=== PATIENT | female | born 1940 | race Caucasian/White ===

== ENCOUNTER → 2024-10-24 | Outpatient (CLI) | payer MEDICARE, SELFPAY ==
[2024-10-24 13:05] LABS: Collection Type, Urine Clean Catch
[2024-10-24 13:30] LABS: Albumin, Serum 4.4 gm/dL (3.4-4.8); Anion Gap 7 (7-16); BUN/Creatinine Ratio 17 Ratio (12-20); Blood Urea Nitrogen 15 mg/dL (9-23); Calcium 9.5 mg/dL (8.3-10.6); Calcium (Corrected) 9.5 mg/dL (8.5-10.1); Carbon Dioxide 28.5 mMol/L (20.0-31.0); Chloride 94 mMol/L (98-107); Creatinine (Component) 0.9 mg/dL (0.6-1.3); Glucose 109 mg/dL (74-106); Osmolality,Calculated 260 (275-295); Potassium 4.5 mMol/L (3.4-5.1); Sodium 129 mMol/L (136-145); eGFR > 60 See Note
[2024-10-24 14:13] LABS: Bacteria,Urine 3+; Bilirubin,Urine Negative (Negative); Blood,Urine Negative (Negative); Clarity,Urine Turbid (Clear/Hazy); Color,Urine Lt-Yellow (Lt Yel-Yel); Glucose, Urine Negative (Negative); Ketones,Urine Negative (Negative); Leukocyte Esterase,Urine Positive (Negative); Nitrite,Urine Positive (Negative); PH,Urine 5.5 (5.0-7.0); Protein,Urine Negative (Neg - Trace); RBC,Urine 1 /hpf (0-3); Specific Gravity,Urine 1.009 (1.001-1.035); Squamous Epithelial Cell,Urine 15 /hpf (0-5); Transitional Epi Cells,Urine < 1 /hpf (0-5); Urobilinogen,Urine Negative mg/dL (0.0-1.0); WBC,Urine 26 /hpf (0-5)
== END | disposition home or self-care (01) ==
LOC: COPL 12:00
PROVIDERS: PCP Internal Medicine; Referring Provider Internal Medicine; Visit Provider Internal Medicine
DX: I10 Essential (primary) hypertension (principal)
CPT/HCPCS: 36415; 80069; 81001

== ENCOUNTER → 2024-11-07 | Outpatient (CLI) | payer MEDICARE, SELFPAY ==
--- NOTE | 2024-11-07 10:56 | XR_ITS ---
Examination: Shoulder,right, 3 views Technique: Shoulder AP internal rotation, AP external rotation, Y view shoulder, 3 views Exam date and time :November 07, 2024 1242 hours INDICATIONS: Right shoulder pain beginning several years ago. FINDINGS: Moderate osteoarthritis glenohumeral joint and acromioclavicular joint No fracture No shoulder dislocation IMPRESSION: Moderate osteoarthritis
== END | disposition home or self-care (01) ==
LOC: CDIM 10:48
PROVIDERS: PCP Internal Medicine; Referring Provider Internal Medicine; Visit Provider Internal Medicine
DX: M19.011 Primary osteoarthritis, right shoulder (principal)
CPT/HCPCS: 73030

== ENCOUNTER → 2025-01-27 | Outpatient (CLI) | payer MEDICARE, SELFPAY ==
[2025-01-27 10:32] LABS: Basophils % (Auto) 0 % (0-2.5); Eosinophils # (Auto) 0.1 Thou/mm3 (0.0-0.5); Eosinophils % (Auto) 2 % (0-10); Hematocrit 37.1 % (36.0-46.0); Hemoglobin 12.8 g/dL (12.0-16.0); Immature Granulocytes % (Auto) 0 % (0-0); Immature Granulocytes Auto 0.02 Thou/mm3 (0.00-0.00); Lymphocytes # (Auto) 1.3 Thou/mm3 (1.0-4.8); Lymphocytes % (Auto) 23 % (10-50); Mean Corpuscular HGB Conc 34.5 g/dl (31.0-37.0); Mean Corpuscular Hemoglobin 32.7 pg (25.0-35.0); Mean Corpuscular Volume 95 fL (80-100); Monocytes # (Auto) 0.6 Thou/mm3 (0.0-0.8); Monocytes % (Auto) 10 % (0-12); Neutrophils # (Auto) 3.6 Thou/mm3 (1.8-7.7); Neutrophils % (Auto) 64 % (37-80); Nucleated Red Blood Cell % 0 /100 WBC (0); Platelet Count 190 Thou/mm3 (140-440); RDW Standard Deviation 44.9 fL (36.4-46.3); Red Blood Count 3.91 Miln/mm3 (4.00-5.20); White Blood Count 5.6 Thou/mm3 (3.6-11.0)
[2025-01-27 11:05] LABS: Albumin, Serum 4.1 gm/dL (3.4-4.8); Anion Gap 5 (7-16); BUN/Creatinine Ratio 18 Ratio (12-20); Blood Urea Nitrogen 14 mg/dL (9-23); Calcium 9.3 mg/dL (8.3-10.6); Calcium (Corrected) 9.3 mg/dL (8.5-10.1); Carbon Dioxide 30.3 mMol/L (20.0-31.0); Chloride 96 mMol/L (98-107); Creatinine (Component) 0.8 mg/dL (0.6-1.3); Glucose 104 mg/dL (74-106); Osmolality,Calculated 263 (275-295); Phosphorous 3.6 mg/dL (2.4-5.1); Potassium 4.7 mMol/L (3.4-5.1); Sodium 131 mMol/L (136-145); eGFR > 60 See Note
== END | disposition home or self-care (01) ==
LOC: COPL 09:47
PROVIDERS: PCP Internal Medicine; Referring Provider Internal Medicine; Visit Provider Internal Medicine
DX: I10 Essential (primary) hypertension (principal)
CPT/HCPCS: 36415; 80069; 85025

== ENCOUNTER 2025-02-10 03:59 | Inpatient (IN) | payer MEDICARE, SELFPAY ==
[2025-02-10] VITALS (11 sets, daily range): BP systolic 98–139; BP diastolic 60–85; PULSE 73–100; RESP 17–20; TEMP 36.1–36.8; O2SAT 95–98; BMI 28.0
--- NOTE | 2025-02-10 04:07 | EDNOTE_ITS ---
ED Syncope RME/HPI General Chief Complaint: Syncope / Near Syncope Stated Complaint: SYNCOPAL EPISODE Time Seen by Provider: 02/10/25 04:07 Arrival date/time: 02/10/25 03:59 RME / HPI RME / HPI narrative: This section includes all my notes and documentations, including HPI, PE, and ED course. Oscar Gibson MD HPI: 85yo female with a history of HTN BIBA from home presents to the ED for a chief complaint of syncope just prior to arrival. Stroke alert initiated at 0408. Patient states she was walking from the restroom to her bedroom when she started feeling generally weak and passed out. She woke up on the floor on her back, with obvious injury to the back of her head. She had passed out only briefly, probably less than a minute. She managed to crawl and get help using [employer]. Son who is the redness to the senior medical transcriptionist is here. They helped her up in sitting position. there was a 5-10 minute period when the patient became altered and was not responding appropriately. So he called 911 to bring the patient in for evaluation. Patient endorses having right ankle pain. She denies dizziness, chest pain, abdominal pain, shortness of breath, cough, fever, chills, neck pain. Patient is not on oxygen at home. She does not use a walker or cane. PCP is Dr. Rayo. No speech or visual impairment. No loss of power in arms or legs. No numbness or tingling. No other complaints reported. ROS: All negative except as documented in HPI. Physical Exam: General:? Alert and oriented.? No acute distress when remaining still. Eyes:? Conjunctivae and lids clear.? EOMI.? PERRL. ENT:? No signs of head trauma. Neck:? Supple.? No tenderness. Heart:? RRR.? Lungs:? No respiratory distress.? Good air movement.? No rhonchi, wheezing, rales.?? Chest:? No tenderness. Abdomen:? Soft and nontender.?? Back:? No tenderness.?? Skin:? Warm and dry.?? Neuro:? Alert and oriented X 3.? Cranial Nerves II-XII grossly intact.? No peripheral motor deficits. Musculoskeletal: Remarkable for right ankle tenderness and edema. All other major joints and bones are not tender with no limited ROM. I reviewed all diagnostic test results. My review of the head CT report is NAD. My review of the head/neck CTA report is NAD. Complete diagnostic test results pending. At 6 AM on 02/10/2025, the care of the patient was transferred to Dr Hall. Oscar Gibson MD Related Data Allergies Allergy/AdvReac Type Severity Reaction Status Date / Time NKA Allergy Uncoded 02/10/25 05:27 Review of Systems Review of Systems Systems Reviewed: All systems reviewed, normal except as documented ED Exam Narrative Physical exam: As noted in HPI. Course Quality Measures Suspected type of Stroke: Unknown at this time Tenecteplase given: Reason(s) TPA not given: Refusal not given stroke Orders Category Date Time Status Bedside Blood Glucose NOW Care 02/10/25 04:08 Active Bedside COVID-19 Antigen Test NOW Care 02/10/25 04:11 Active Bedside Influenza A&B Antigen Test NOW Care 02/10/25 04:11 Completed Grout Pump Operator NOW Care 02/10/25 04:08 Active Continuous Pulse Oximetry NOW Care 02/10/25 04:08 Completed EKG (ED ONLY) *Do not use* NOW Care 02/10/25 04:08 Active EKG (ED ONLY) *Do not use* NOW Care 02/10/25 05:22 Active In and Out Catheter NEEDED Care 02/10/25 04:08 Active Insert IV NOW Care 02/10/25 04:08 Active NIH Stroke Scale now Care 02/10/25 04:08 Active NPO NOW Care 02/10/25 04:08 Active Nurse Swallow Screen x1 Care 02/10/25 04:08 Active Splint / Immobilizer STAT Care 02/10/25 05:25 Active Consult to Neurology / Tele-Neurology Routine Cons 02/10/25 04:[address] angio stroke protocol Stat Exams 02/10/25 04:[address] cervical spine wo con Stat Exams 02/10/25 04:[address] chest abdomen pelvis wo Stat Exams 02/10/25 04:[address] lumbar spine wo con Stat Exams 02/10/25 04:[address] stroke protocol Stat Exams 02/10/25 04:[address] thoracic spine wo con Stat Exams 02/10/25 04:10 Taken EKG (ED Only) Stat Exams 02/10/25 04:08 Draft EKG (ED Only) Stat Exams 02/10/25 05:22 Ordered XR ankle comp RT min 3V Stat Exams 02/10/25 04:40 Taken XR chest 1V portable Stat Exams 02/10/25 04:10 Taken XR foot comp RT min 3V Stat Exams 02/10/25 04:40 Taken Arterial Blood Gas Stat Lab 02/10/25 04:08 Ordered B-Type Natriuretic Peptide Stat Lab 02/10/25 04:55 Received Blood Culture (Lab) Stat Lab 02/10/25 04:48 Received CBC Stat Lab 02/10/25 04:55 Completed CRP [C-Reactive Protein] Stat Lab 02/10/25 04:55 Received Comprehensive Metabolic Panel Stat Lab 02/10/25 04:55 Received ESR [Sed Rate (ESR)] Stat Lab 02/10/25 04:55 Completed Free T4 (Free Thyroxine) Stat Lab 02/10/25 04:55 Received Lactate (Lactic Acid) Stat Lab 02/10/25 04:55 Completed Magnesium Stat Lab 02/10/25 04:55 Received Partial Thromboplastin Time Stat Lab 02/10/25 04:55 Completed Procalcitonin Stat Lab 02/10/25 04:55 Received Prothrombin Time with INR Stat Lab 02/10/25 04:55 Completed TSH [Thyroid Stimulating Hormone] Stat Lab 02/10/25 04:55 Received Troponin I Stat Lab 02/10/25 04:55 Received Urinalysis Stat Lab 02/10/25 04:08 Ordered Urine Culture Stat Lab 02/10/25 04:08 Ordered LORazepam [Ativan Inj] Med 02/10/25 05:04 Discontinued 0.25 mg IVP X1 ONE Ondansetron Inj [Zofran Inj] Med 02/10/25 04:07 Active 4 mg IV Q4HR PRN Sodium Chloride 0.9% 1000 ml [Ns] 1,000 ml Med 02/10/25 04:15 Active IV Q10H Oxygen Delivery NOW RT 02/10/25 04:08 Active Vital Signs Vital signs: Vital Signs Temperature 97.9 F 02/10/25 04:07 Pulse Rate 100 02/10/25 04:07 Respiratory Rate 17 02/10/25 04:07 Blood Pressure 139/85 H 02/10/25 04:07 Pulse Oximetry (%) 97 02/10/25 04:07 Oxygen Delivery Method Room Air 02/10/25 04:07 Syncope MDM Narrative MDM Narrative:: Scribe Attestation: 02/10/25 - Emelyn Roland am scribing for and in the presence of Dr. Gibson. Patient data External records reviewed:: [facility] previous records (Per chart review, patient has no previous ED visits or admissions to this facility.) and EMS form Clinical information provided by:: patient, EMS and family (son) Social determinants that could affect healthcare access:: other (specify) (Advanced age) Patient has the following chronic illnesses:: HTN How is presenting disease/condition affected by chronic disease/condition?: uneffected by Evaluation data The following diagnostics were reviewed and interpreted by me:: lab results, radiology exam(s) and EKG tracing(s) Lab and/or radiology exams considered but not ordered:: none Interpretation Summary: Complete diagnostic test results are pending. Medications / Prescriptions Medications or Prescriptions considered but not ordered:: none Medication administrations:: Medication Administration History Sodium Chloride (Ns) 1,000 mls @ 100 mls/hr IV Q10H CASSANDRA Stop: 03/12/25 04:14 Last Admin: 02/10/25 05:40 Dose: 100 mls/hr Documented By: ADEN Ondansetron HCl (Ondansetron Inj 2 Mg/Ml Inj 2 Ml) 4 mg IV Q4HR PRN PRN Reason: NAUSEA OR VOMITING Stop: 03/12/25 04:06 Last Admin: 02/10/25 05:40 Dose: 4 mg Documented By: ADEN Discontinued Medications Lorazepam (Lorazepam 2 Mg/Ml Vial) 0.25 mg IVP X1 ONE Stop: 02/10/25 05:05 Last Admin: 02/10/25 05:42 Dose: 0.25 mg Documented By: ADEN IV fluid and Zofran and Ativan 0.25 mg. Consultations Consultation(s) initiated? (list below): Yes Consultation #1 (Physician, Specialty, Details): Consulted our telehealth neurologist, full report is pending. Diagnosis Syncope Differential Diagnosis: syncope due to orthostatic hypotension, vasovagal syncope, complete atrioventricular block, subarachnoid hemorrhage, pulmonary embolism, dehydration and other (Brain tumor, NV, UTI, pneumonia, sepsis, fracture) Most likely diagnosis given after review of the tests above:: Complete diagnostic test results are pending. Admission Indicated Admission indicated?: not indicated Explain why admission is indicated or not indicated:: Complete diagnostic test results are pending. Admission Request Was there a request for admission?: No Disposition Plan Disposition Plan: other (specify) (Care of the patient was transferred to Dr Hall.) Discharge Plan Problem List Clinical Impression: Syncope, Fall, Head injury, AMS (altered mental status), Ankle fracture, right Patient/Caregiver Discharge Instructions Print Language: Nepali
--- NOTE | 2025-02-10 04:08 | XR_ITS ---
Examination: CT brain head without contrast. 2-D sagittal coronal reconstructions Date and time of exam:January 31, 2025 0416 hrs. Indications: Stroke alert, onset focal neurologic deficit today CTDI: vol (mGy):7.75 DLP: (mGycm):1260 Technique: Multiple CT axial sections of the brain have been obtained, 5 mm slice thickness. Contrast has not been administered. 2-D sagittal, coronal reconstructions have been obtained Low dose protocols were performed. One or more of the following dose reduction techniques were used; automated exposure control, adjustment of the mA and/or KV according to patient size, use of iterative reconstruction technique. Findings: No significant ventricular enlargement. Intra-axial or extra-axial hemorrhage density is not seen. No mass effect or midline shift Basal cisterns are not remarkable. Fourth ventricle is midline. Cranial vault intact. 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
--- NOTE | 2025-02-10 04:08 | EKG_ITS ---
[facility] Test Date: 2025-02-10 Pat Name: TED PATRICIO Department: Room: - Gender: Female Benefits Representative: : 1940 Requested By: Oscar Jackson Order Number: [id number] Reading MD: Oscar Jackson Measurements Intervals [place] Rate: 99 P: -6 MT: 171 QRS: 10 QRSD: 102 T: 119 QT: 340 QTc: 436 Interpretive Statements SINUS RHYTHM MINIMAL VOLTAGE CRITERIA FOR LVH, CONSIDER NORMAL VARIANT [MEETS CRITERIA IN ONE OF: R(aVL), S(V1), R(V5), R(V5/V6)+S(V1)] SEPTAL MYOCARDIAL INFARCTION , OF INDETERMINATE AGE [40+ ms Q WAVE IN V1/V2] MODERATE T-WAVE ABNORMALITY, CONSIDER LATERAL ISCHEMIA [-0.1+ mV T-WAVE IN I/aVL/V5/V6] Compared to ECG 04/21/2024 08:51:38 Myocardial infarct finding now present T-wave abnormality now present Possible ischemia now present ST (T wave) deviation no longer present /store/S0/[id number]/ecg/[id number].pdf
--- NOTE | 2025-02-10 04:08 | XR_ITS ---
Examination: CTA carotids with intravenous contrast CTA brain, head with intravenous contrast. 2-D sagittal, coronal reconstructions. 3-D reconstructions. Exam date and time: February 10, 2025 at 0431 hrs. Indications: Stroke alert today, onset focal neurologic deficit CTDI: vol (mGy) 10.8 DLP: (mGycm) 446 Technique: Multiple CTA axial brain, head carotid images post intravenous contrast injection 100 cc, [id number]. 2-D sagittal, coronal reconstructions. 3-D reconstructions, 3-D post processing including vascular maximum intensity projection images. Low dose protocols were performed. One or more of the following dose reduction techniques were used; automated exposure control, adjustment of the mA and/or KV according to patient size, use of iterative reconstruction technique. Findings: Thyromegaly with multiple bilateral thyroid nodules No significant stenoses common carotid arteries carotid bifurcations or internal carotid arteries Dominant left vertebral artery in the neck with no critical stenoses No cerebral large vessel arterial occlusions thrombus dissection or cerebral aneurysm Impression: Recommend dedicated thyroid sonography follow-up No significant neck arterial stenoses No cerebral large vessel arterial occlusions
--- NOTE | 2025-02-10 04:10 | XR_ITS ---
Examination: CT lumbar spine, without contrast. 2-D sagittal reconstructions. 2-D coronal reconstructions. 3-D reconstructions. Date and time of exam:February 10, 2025 0425 hrs. Indications: Ground-level fall today with injury to the lower back, lower back pain CTDI: vol (mGy):41.2 DLP: (mGycm):2509 Technique: Multiple 1.25 mm axial sections of the lumbar spine without intravenous contrast have been obtained. 2-D sagittal and coronal reconstructions have been obtained. 3-D reconstructions have been obtained. Low dose protocols were performed. One or more of the following dose reduction techniques were used; automated exposure control, adjustment of the mA and/or KV according to patient size, use of iterative reconstruction technique. Findings: Prominent osteopenia Adequate alignment lumbar vertebral bodies on the lateral view Diffuse moderate to advanced lumbar degenerative disc disease, especially L4-L5 No lumbar vertebral body compression fracture No spondylolisthesis Lumbar pedicles, laminae, transverse and posterior spinous processes appear intact No focal lumbar disc protrusion Impression: No acute lumbar fracture
--- NOTE | 2025-02-10 04:10 | XR_ITS ---
Examination: CT chest, without intravenous contrast. CT abdomen, without intravenous contrast. CT pelvis, without intravenous contrast. 2-D sagittal and coronal reconstructions. 3-D reconstructions. Date and time of exam:February 10, 2025 0421 hrs. Indications: Ground-level fall today with injury to the chest and abdomen, chest pain abdomen pain CTDI vol (mgy) 12.8 DLP (MGycm)940 Technique: Multiple CT images, 3.0 mm slice thickness, obtained chest, abdomen, pelvis, with the high-resolution 64 slice scanner.. Sagittal and coronal 2-D reconstructions are obtained. 3-D reconstructions Low dose protocols were performed. One or more of the following dose reduction techniques were used; automated exposure control, adjustment of the mA and/or KV according to patient size, use of iterative reconstruction technique. Findings: Thoracic aorta pulmonary arteries appear intact on this noncontrast study No hemopericardium No pneumothorax, pulmonary contusion or hemothorax Prominent effusion right glenohumeral joint, clinical correlation advised No liver splenic or renal laceration, liver mildly irregular in contour Abdominal aorta intact with heavy calcified No free blood in the abdomen Absent gallbladder Small fat-containing umbilical hernia Urinary bladder intact Manubrium sternum thoracic lumbar vertebral bodies intact Ribs appear intact Bones of the pelvis intact No loosening of the left hip arthroplasty Right hip intact Impression: Thoracic aorta pulmonary arteries intact. No pneumothorax, pulmonary contusion, hemopericardium or hemothorax No abdominal parenchymal laceration Abdominal aorta intact No free blood in the abdomen and pelvis Osseous structures are demineralized but intact
--- NOTE | 2025-02-10 04:10 | XR_ITS ---
Examination: CT thoracic spine, without contrast. 2-D sagittal reconstructions. 2-D coronal reconstructions. 3-D reconstructions. Date and time of exam:February 10, 2025 0425 hrs. Indications: Ground-level fall today with injury to the back, back pain CTDI: vol (mGy):41.2 DLP: (mGycm):2509 Technique: Multiple 1.25 mm axial sections of the thoracic spine without intravenous contrast have been obtained. 2-D sagittal and coronal reconstructions have been obtained. 3-D reconstructions have been obtained. Low dose protocols were performed. One or more of the following dose reduction techniques were used; automated exposure control, adjustment of the mA and/or KV according to patient size, use of iterative reconstruction technique. Findings: Prominent osteopenia Satisfactory alignment thoracic vertebral bodies Moderate diffuse thoracic degenerative disc disease No thoracic vertebral body compression fracture Thoracic pedicles, laminae, transverse and posterior spinous processes intact No focal thoracic disc protrusion noted Impression: No acute thoracic fracture
--- NOTE | 2025-02-10 04:10 | XR_ITS ---
Examination: CT cervical spine without contrast 2-D sagittal reconstructions 2-D coronal reconstructions 3-D reconstructions. Exam date and time:February 10, 2025 0416 hrs. Indications: Ground-level fall today with injury to the neck, neck pain CTDI:vol (mGy) 7.75 DLP: (mGycm) 1260 Technique: Multiple 2 mm axial sections of the cervical spine have been obtained. The coronal and sagittal reconstructions have been obtained. 3-D reconstructions have been obtained. Low dose protocols were performed. One or more of the following dose reduction techniques were used; automated exposure control, adjustment of the mA and/or KV according to patient size, use of iterative reconstruction technique. Findings: Axial sections demonstrate intact base of the skull. C1 exhibit satisfactory relationship to the odontoid. No acute cervical vertebral body fracture seen. Alignment posterior spinous processes satisfactory. Impression: No acute cervical fracture.
--- NOTE | 2025-02-10 04:10 | XR_ITS ---
Examination: AP chest single view Technique one AP portable semiupright chest single view Exam date and time: February 10, 2025 0504 hrs. Indications: Shortness breath today. Findings: Normal heart size. Lungs are clear. Moderate osteopenia Impression: No active disease
--- NOTE | 2025-02-10 04:12 | PC.NURSE ---
stroke alert Case # [id number]
--- NOTE | 2025-02-10 04:30 | PC.NURSE ---
Dr. Castillo Valladares, Tele neurologist spoke with Dakotah (son) with regards to Pt's condition and what had happened.
--- NOTE | 2025-02-10 04:40 | XR_ITS ---
EXAMINATION: Ankle, right 3 views . Technique: Ankle AP, oblique, lateral 3 views Date and time of exam: February 10, 2025 0504 hrs. Indications: Patient fell today with injury to the ankle, ankle pain. Findings: Acute fractures distal fibula and medial malleolus without major displacement No ankle dislocation Severe osteopenia Impression: Acute bimalleolar fractures
--- NOTE | 2025-02-10 04:40 | XR_ITS ---
Examination: Foot, right, 3 views Technique: AP, oblique, lateral views foot, 3 views Date and time of exam: February 10, 2025 0504 hrs. Indications: Patient fell today with injury to the foot, foot pain. Findings: Please see the ankle report Tarsal bones metatarsals and digits appear intact Impression: No acute foot fracture
[2025-02-10 05:01] LABS: Lactate (Lactic Acid) 1.5 mMol/L (0.4-2.0)
[2025-02-10 05:06] LABS: Basophils % (Auto) 0 % (0-2.5); Eosinophils # (Auto) 0.1 Thou/mm3 (0.0-0.5); Eosinophils % (Auto) 1 % (0-10); Hematocrit 35.6 % (36.0-46.0); Hemoglobin 12.6 g/dL (12.0-16.0); Immature Granulocytes % (Auto) 0 % (0-0); Immature Granulocytes Auto 0.03 Thou/mm3 (0.00-0.00); Lymphocytes # (Auto) 0.5 Thou/mm3 (1.0-4.8); Lymphocytes % (Auto) 5 % (10-50); Mean Corpuscular HGB Conc 35.4 g/dl (31.0-37.0); Mean Corpuscular Hemoglobin 32.6 pg (25.0-35.0); Mean Corpuscular Volume 92 fL (80-100); Monocytes # (Auto) 0.3 Thou/mm3 (0.0-0.8); Monocytes % (Auto) 3 % (0-12); Neutrophils # (Auto) 8.7 Thou/mm3 (1.8-7.7); Neutrophils % (Auto) 91 % (37-80); Nucleated Red Blood Cell % 0 /100 WBC (0); Platelet Count 161 Thou/mm3 (140-440); Red Blood Count 3.87 Miln/mm3 (4.00-5.20); White Blood Count 9.6 Thou/mm3 (3.6-11.0)
--- NOTE | 2025-02-10 05:09 | PRELIM_ITS ---
CT scan of the cervical spine without intravenous contrast (axial sections with sagittal and coronal reformats) February 10, 2025 at 0416 hours Clinical History: Trauma Comparison: None. Findings: There is no fracture or subluxation. The prevertebral soft tissues are unremarkable. Chronic multilevel disc disease, worse at C5-C6 and C6-7. Impression: No evidence of fracture or subluxation. Chronic multilevel disc disease, worse at C5-C6 and C6-7. Consider correlation with MRI. Report Electronically Signed By: Elia Laurent 02/10/2025 5:08:27 AM [EST]
--- NOTE | 2025-02-10 05:15 | PRELIM_ITS ---
CT scan of the head without intravenous contrast (axial sections with sagittal and coronal reformats) February 10, 2025 0416 hours Clinical history: Focal neuro deficit, stroke suspected. Comparison: No prior study is available for comparison. Findings: There is no evidence of intracranial hemorrhage, mass effect or midline shift. There are periventricular white matter hypodensities, compatible with chronic small vessel ischemia. There is moderate volume loss. The calvarium is unremarkable. The mastoid air cells and the visualized paranasal sinuses are clear. Impression: No evidence of intracranial hemorrhage, mass effect or midline shift. Periventricular chronic small vessel ischemia and volume loss. Aspects score 10. Discussion Details: Results verbally communicated to : Dr. Gibson at 05:10 AM 02/10/2025 Report Electronically Signed By: Elia Laurent 02/10/2025 5:14:54 AM [EST]
--- NOTE | 2025-02-10 05:16 | PRELIM_ITS ---
CT angiogram of the head and neck with intravenous contrast (axial sections with sagittal and coronal reformats) February 10, 2025 at 0431 hours Clinical History: Focal neuro deficit, stroke suspected Comparison: None. Findings: Head: The internal carotid, middle and anterior cerebral arteries are patent bilaterally. The intracranial vertebral arteries are patent. The vertebrobasilar junction, basilar and posterior cerebral arteries are patent. No evidence of large vessel occlusion, critical stenosis or aneurysm. Neck: The aortic arch to the extent visualized as well as the origins of the right brachiocephalic, left common carotid, and left subclavian arteries are patent. The common carotid arteries, carotid bulbs, and internal and external carotid arteries are patent. The origins of the vertebral arteries are unremarkable. The left vertebral artery is dominant. No evidence of vascular occlusion, critical stenosis, dissection or aneurysm. Enlarged heterogenous nodular thyroid. The osseous structures are unremarkable. Impression: Head: No evidence of large vessel occlusion, critical stenosis or aneurysm. Neck: No evidence of vascular occlusion, critical stenosis, dissection or aneurysm. Enlarged heterogenous nodular thyroid. Please, correlate with thyroid function test and ultrasound. Discussion Details: Results verbally communicated to : Dr. Gibson at 05:10 AM 02/10/2025 Report Electronically Signed By: Elia Laurent 02/10/2025 5:15:10 AM [EST]
--- NOTE | 2025-02-10 05:22 | EKG_ITS ---
[facility] Test Date: 2025-02-10 Pat Name: TED PATRICIO Department: Room: - Gender: Female Release Engineer: : 1940 Requested By: Oscar Jackson Order Number: [id number] Reading MD: Oscar Jackson Measurements Intervals [place] Rate: 82 P: 25 [place]: 157 QRS: -20 QRSD: 114 T: 94 QT: 367 QTc: 429 Interpretive Statements SINUS RHYTHM LEFT VENTRICULAR HYPERTROPHY AND ST-T CHANGE [VOLTAGE CRITERIA PLUS ST/T ABNORMALITY] POSSIBLE SEPTAL MYOCARDIAL INFARCTION , OF INDETERMINATE AGE [30 ms Q WAVE IN V1/V2] Compared to ECG 02/10/2025 04:56:47 ST (T wave) deviation now present T-wave abnormality no longer present Possible ischemia no longer present Myocardial infarct finding still present /store/S0/[id number]/[id number].pdf
[2025-02-10 05:23] LABS: Partial Thromboplastin Time 23.4 Seconds (22.0-36.0); Prothrombin Time 11.4 Seconds (9.0-12.2)
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
--- NOTE | 2025-02-10 05:26 | PRELIM_ITS ---
CT scan of the lumbar spine without intravenous contrast (axial sections with sagittal and coronal reformats) February 10, 2025 at 0425 hours Clinical History: Fall. Comparison: No prior study is available for comparison. Findings: There is no fracture or subluxation. The vertebral body height and intervertebral disc spaces are normal. Chronic degenerative changes of the imaged portions of the spine. Chronic multilevel disc disease. Vascular calcification. Impression: No evidence of fracture, subluxation or significant soft tissue injury. Report Electronically Signed By: Elia Laurent 02/10/2025 5:25:10 AM [EST]
--- NOTE | 2025-02-10 05:28 | PRELIM_ITS ---
CT scan of the thoracic spine without intravenous contrast (axial sections with sagittal and coronal reformats) February 10, 2025 at 0425 hours Clinical History: Fall. Comparison: No prior study is available for comparison. Findings: There is no fracture or subluxation. The thoracic vertebrae are normally aligned. The intervertebral disc spaces are maintained. There is no pre or paravertebral soft tissue abnormality. Chronic degenerative changes of the imaged portions of the spine. Chronic multilevel disc disease. No acute fractures. Vascular calcification. Impression: No fracture or subluxation. Report Electronically Signed By: Elia Laurent 02/10/2025 5:27:10 AM [EST]
--- NOTE | 2025-02-10 05:32 | PRELIM_ITS ---
CT scan of the chest, abdomen and pelvis without intravenous contrast (axial sections with sagittal and coronal reformats) February 10, 2025 at 0421 hours Clinical History: Fall. Comparison: No prior study is available for comparison. Findings: The lungs are clear. There is no pleural effusion or pneumothorax. The aorta is within normal limits on this noncontrast study. There is no mediastinal collection. There is no pericardial effusion. The spleen, pancreas, adrenals and kidneys are unremarkable on this noncontrast study. Status postcholecystectomy. Mild irregular liver margins. The bowel is unremarkable. The urinary bladder is unremarkable. There is no free fluid or free air. Chronic degenerative changes of the imaged portions of the spine. Chronic multilevel disc disease. No acute fractures. Complex right glenohumeral joint effusion. Vascular calcification. Coronary arteries calcifications. Small hiatus hernia. No pelvic masses. Diverticulosis of the colon. Fecal loading. Impression: No visceral or bony injury to the chest, abdomen or pelvis. Possible cirrhosis. Fecal loading. Small hiatus hernia. Complex right glenohumeral joint effusion. Further evaluation is recommended. Report Electronically Signed By: Elia Laurent 02/10/2025 5:32:00 AM [EST]
[2025-02-10 05:38] LABS: Sed Rate (ESR) 8 mm/hr (0-30)
[2025-02-10] MEDS: SODIUM CHLORIDE 0.9% 1000 ML 1,000 ML 100 ML IV ×2 (05:40→18:28)
[2025-02-10] MEDS: ONDANSETRON INJ 2 MG/ML INJ 2 ML 4 MG IV (05:40)
[2025-02-10] MEDS: LORazepam 2 MG/ML VIAL 0.25 MG IVP (05:42)
[2025-02-10 06:01] LABS: Alanine Aminotransferase 10 U/L (10-49); Albumin, Serum 3.9 gm/dL (3.4-4.8); Alkaline Phosphatase 97 U/L (46-116); Anion Gap 6 (7-16); Aspartate Amino Transferase 13 U/L (0-34); B-Type Natriuretic Peptide 67 pg/mL (0-100); BUN/Creatinine Ratio 19 Ratio (12-20); Bilirubin,Total 0.8 mg/dL (0.3-1.2); Blood Urea Nitrogen 15 mg/dL (9-23); C-Reactive Protein < 0.5 mg/dL (0.0-0.9); Calcium 9.1 mg/dL (8.3-10.6); Calcium (Corrected) 9.2 mg/dL (8.5-10.1); Carbon Dioxide 26.6 mMol/L (20.0-31.0); Chloride 99 mMol/L (98-107); Creatinine (Component) 0.8 mg/dL (0.6-1.3); Free T4 (Free Thyroxine) 1.28 ng/dL (0.89-1.76); Glucose 119 mg/dL (74-106); Osmolality,Calculated 266 (275-295); Potassium 4.1 mMol/L (3.4-5.1); Procalcitonin 0.06 ng/ml (0.0-0.49); Sodium 132 mMol/L (136-145); Thyroid Stimulating Hormone 4.29 uIU/mL (0.55-4.78); Total Protein 5.9 gm/dL (5.7-8.2); Troponin I < 0.020 ng/mL (0.0-0.045); eGFR > 60 See Note
--- NOTE | 2025-02-10 06:10 | PD.EDADDENDU ---
Emergency Room Addendum Addendum Narrative: 0600: Care assumed from Dr. Gibson, the previous shift emergency physician. Past medical, surgical, social and family history reviewed. Vitals and home medications reviewed. I will assume the care of the patient at this time, pending remainder of work-up and final disposition. Please refer to the emergency department record for history and examination from initial visit.?The following addendum documentation note is intended to reflect any pending information, findings, or radiology results not included in the patient?s initial chart. 0734: I spoke with patients PCP Dr. Rayo. Discussed patients PMHx, HPI, ED course, exam findings, labs, and radiology results. Recommended we consult with training coordinator Dr. Nick Reinoso. She agrees to admit the patient. 0738: I spoke with patient and family, discussed Dr. Rayo's recommendations.They are in agreement with plan for admission. 0750: I spoke with training coordinator Dr. Nick Reinoso. Discussed patients PMHx, HPI, ED course, labs results. He agrees to consult. EKG #1 @ 04:56 shows. Limitation due to artifact, sinus rhythm, rate 99. EKG #2 @ 05:55 shows. Sinus rhythm, rate 82, normal axis, normal interval, no acute ST or T-wave changes, no STEMI.
--- NOTE | 2025-02-10 06:28 | PC.NURSE ---
Rt ankle splint applied by Fabby GARLAND, kaylah well.
[2025-02-10 07:12] LABS: Collection Type, Urine Clean Catch
[2025-02-10 07:28] LABS: Bacteria,Urine 2+; Bilirubin,Urine Negative (Negative); Blood,Urine Negative (Negative); Clarity,Urine Clear (Clear/Hazy); Color,Urine Lt-Yellow (Lt Yel-Yel); Glucose, Urine Negative (Negative); Ketones,Urine Negative (Negative); Leukocyte Esterase,Urine Positive (Negative); Nitrite,Urine Negative (Negative); PH,Urine 8.5 (5.0-7.0); Protein,Urine Negative (Neg - Trace); RBC,Urine < 1 /hpf (0-3); Squamous Epithelial Cell,Urine 2 /hpf (0-5); Urobilinogen,Urine Negative mg/dL (0.0-1.0); WBC,Urine 5 /hpf (0-5)
[2025-02-10 07:28] LABS: Troponin I < 0.020 ng/mL (0.0-0.045)
--- NOTE | 2025-02-10 08:45 | ESCONSULT_ITS ---
<Statement entered by Rogelio Orellana MD - 02/11/25 08:19> I have personally seen and examined the patient separately on the above date of service and discussed the plan of care with the resident. I reviewed the resident Dr. Delon Arcos consultation progress note and agree with the resident findings and plan in the note above and have also edited the documentation to reflect my findings and plan. 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 Patient then passed out and woke up on the floor and could not get up as she had leg pain and called her [id number] via the [place]. Son and daughter reach the patient suite in the same apartment and the probe from the floor and placed her in a chair. Son Dr. Claire who is a physician attempted to obtain blood pressure and systolics was around the 70s and. After a few minutes patient slumped with her head back and was unconscious which lasted less than 5 minutes. He tried to actually wake her up and she was not responding to even deep sternal rub. Patient did have leak pulse and low blood pressure at the present point of time. No evidence of seizures as per the son. EMS was called and patient regained consciousness for the time and blood pressure was 115/70 mmHg. Patient was brought to the emergency department for further evaluation. Patient did have similar episode twice before but it appears to be vasovagal as the patient was having these episodes 1 time when she had a viral infection when she was dehydrated and the other time when she was getting up from the toilet. Patient denies any Chest pain chest pressure or shortness of breath or orthopnea or dizziness or palpitations or leg swelling. She did not have any kind of symptoms prior to her fall except for the left heaviness and weakness. She does not remember the second episode nor does she remember how she passed out. Denies any high fever chills or any other complaints including any abdominal complaints or any recent illnesses. Moved from [place] 4 years ago. She did see a granite setter in [place] as she had some palpitations and abnormal EKG. She was noted to have frequent PVCs on the Holter monitor and was started on beta-rudolph at that point of time she was also hypertensive and she has been on Coreg spironolactone and valsartan. She could not tolerate hydrochlorothiazide because of severe hypokalemia and hence was placed on spironolactone at that time. Her granite setter in [facility] who is retired now which was more than 4 years ago when she moved to [place]. She had extensive workup over the years before she came here with Holter monitor showing PVCs as noted above. She apparently had full treadmill stress test and a nuclear stress test more than 5 years ago all of which were normal. She she has not had any major admissions in the past 4 years. Her PVCs are much better and she had couple of surgeries since then and had cardiac complications. Patient apparently is doing well and recently celebrated her birthday 2 days ago with her friends. Denies any Smoking alcohol or drug abuse. Lives with the son and the family as noted above. She is well-educated and completed her bachelor's and then masters in nutrition involved at [employer] on [facility] funded research. ADL and IADL independent. Other history as documented previously Allergies: No known drug allergies Medical History: Spinal stenosis, Hypertension, Tendon rupture in foot, Polymyalgia rheumatica (30 years ago), Urinary incontinence Surgical History: Bone grafting and dental implant placement in the jaw (recent), Gallbladder removal with liver resection at [facility] (approximately 10 years after hysterectomy), Attempted gallbladder removal resulting in large incision, gallbladder found embedded in liver (approximately 10 years after hysterectomy), Hysterectomy with bilateral oophorectomy at age 51, Tonsillectomy at age 10 Medications and Supplements: Omeprazole, Tylenol, Vitamin D12, Calcium,Extra Vitamin D12, Spironolactone, Valsartan,Metamucil and coreg. Family History:Brothers Open-heart surgery, history of cancer, Heart stent Physical exam General: Alert and oriented x3. In no acute distress. Eyes: Pupils are equal and reactive to light bilaterally. HEENT: Atraumatic, normocephalic. No JVD noted. Mucosa moist. Cardiovascular: Normal S1 and S2. Normal rate and regular rhythm. 2/6 systolic murmur heard at the aortic area with no radiation to the carotids. No peripheral pitting edema. Respiratory: No respiratory distress. Lungs are clear to auscultation bilaterally. No wheezing or crackles heard. Abdomen: Soft, nontender, nondistended. Skin: No rash. Warm to touch. Musculoskeletal: Right foot and ankle noted in dressing. Able to move all 4 extremities. Neuro: Alert and oriented x3. No focal neuro deficits. Psych: Normal affect and mood Assessment and plan: 1. Syncope 2. Fall 3. Acute bimalleolar fracture 4. Essential hypertension 5. Frequent PVCs 6. Spinal stenosis As noted in the detailed history above patient did have 2 witnessed episodes of syncope in the initial episode of syncope resulting in the fall. Patient does not have any prodromal symptoms prior to the syncope episodes. Denies any kind of palpitations dizziness or lightheadedness are any visual disturbances. There was no evidence of any significant tonic-clonic movements indicate you have any seizures as per the son. EKG on admission only showed normal sinus rhythm with LVH with strain pattern without any acute ST-T changes. Troponins and BNP were negative indicating no ACS. No clear etiology at the present moment. Could be mostly vasovagal versus cardiogenic or neurogenic syncope and will need further evaluation. Continue telemetry monitoring for now to rule out any kind of arrhythmias Recommend to check orthostatics. On examination patient only had 2 or 6 systolic murmur with the aortic area but otherwise rest of the cardiac exam was normal. Recommend echocardiogram to rule out any kind of valvular abnormalities and also to evaluate LV function RV function as well as regional wall motion abnormalities and any CHF. If workup negative then patient will need possible long-term Holter monitoring as outpatient versus loop recorder. Check TSH A1c and lipid profile for further cardiac restratification. Neurology consulted and will continue further workup for cause of neurogenic syncope. Eventually might need a tilt table test as outpatient if no clear etiology found. Blood pressure appears to be adequately controlled at the present point of time. Restarted only on Coreg 3.125 mg twice daily for now. Valsartan spironolactone on hold and could be restarted later if blood pressure continues to be high. Patient is s/p fall and CT head and CT spine were done which were negative for any acute fracture but x-ray of the ankles also showed acute bimalleolar fracture and is in splint now. Management of rest of the medical conditions as per primary team and other consultants. Thank you for the consult and allowing me to participate in the care of the patient. Cardiology will continue to follow. Rogelio Orellana M.D. Interventional Cardiology HPI Data of Consult Patient: new to practice Consult date: 02/10/25 Requesting Physician: Emergency department Primary Care Provider: Lawanda Rayo MD Consult Narrative Reason for consult: syncope History of present illness: 85 female with a past medical history of hypertension. Patient presented to the ER due to a witnessed syncopal event. Per patient and son. The patient woke up while on 3 in the morning to go to the restroom patient sat in the bathroom had no issues got up about walking fci to the bedroom patient started to feel generalized weakness and heaviness and the patient collapsed on the floor briefly patient woke up with loss of consciousness and used a home device to call his son was lives in same household. Son and [id number] upon arrival saw the patient on the floor they sat the patient in a chair while the son was attempting to get a blood pressure patient slumped over and became unconscious again this was witnessed by the son. The loss of consciousness event lasted for about 5 minutes and the patient was not responding to deep sternal rub. Patient had a weak pulse at that time. EMS arrived blood pressure was taken and by that time the patient will regain her consciousness. Patient have a similar syncopal event more than 10 years ago when the patient was sitting down on the toilet got up and slumped over but this was most likely due to vasovagal event. Patient has no history of cardiovascular disease had a stress test back in [facility]. Today patient was seen at bedside feeling well. Denying any chest pain, shortness of breath, vomiting diarrhea or nausea. Patient also denies any palpitations or lightheadedness. In the ER patient's vitals were blood pressure 139/85, heart rate of 100, respiratory rate 17 afebrile 97% on room air. CBC was found to be within normal limits. CMP showed normal renal function no electrolyte abnormalities noted. Because of the fall patient was complaining about right ankle pain x-ray shows a bimalleolar fracture. A cast was placed in the ER. A stroke alert was additionally called which showed a CT and CTA head and neck were normal. A chest x-ray, and chest abdomen pelvis CT was also normal. A cervical spine, lumbar spine and thoracic spine CT were also within normal limits. UA was done and it showed 2+ urine bacteria with positive leuk esterase. Patient denies any dysuria at this time. Cardiology was consulted for a witnessed syncopal event. cc:: cc: Exam Vital Signs Temp Pulse Resp BP Pulse Ox O2 Del Method 97.9 F 80 18 110/65 95 Room Air 02/10/25 04:07 02/10/25 06:11 02/10/25 06:11 02/10/25 06:11 02/10/25 06:11 02/10/25 06:11 Narrative Exam Constitutional: AOx3, able to speak full sentences HEENT: NC/AT, PERRLA, oral mucosa moist, neck supple CVS: RRR, S1-S2 present, 2/6 systolic ejection murmur LUSB RESP: CTAB GI: non distended, non tender to palpation, NBS MSK: full ROM, no peripheral edema, peripheral pulses present Skin: warm and dry, no rashes Neuro: deputy city clerk II-XII grossly intact. Sensation grossly intact. Results Labs 02/11/25 04:27 02/11/25 04:27 Labs: Short CBC 02/10/25 Range/Units 04:55 WBC 9.6 (3.6-11.0) Thou/mm3 Hgb 12.6 (12.0-16.0) g/dL Hct 35.6 L (36.0-46.0) % Plt Count 161 (140-440) Thou/mm3 BMP 02/10/25 04:55 Sodium 132 L Potassium 4.1 Chloride 99 Carbon Dioxide 26.6 BUN 15 Creatinine 0.8 Glucose 119 H Calcium 9.1 Cardiac Enzymes 02/10/25 02/10/25 Range/Units 04:55 07:00 Troponin I < 0.020 < 0.020 (0.0-0.045) ng/mL Liver Function 02/10/25 Range/Units 04:55 Total Bilirubin 0.8 (0.3-1.2) mg/dL AST 13 (0-34) U/L ALT 10 (10-49) U/L Alkaline Phosphatase 97 (46-116) U/L Albumin 3.9 (3.4-4.8) gm/dL Urine 02/10/25 Range/Units 06:00 Urine Color Lt-Yellow (Lt Yel-Yel) Urine Clarity Clear (Clear/Hazy) Urine pH 8.5 H (5.0-7.0) Ur Specific [place] 1.010 (1.001-1.035) Urine Protein Negative (Neg - Trace) Urine Glucose (UA) Negative (Negative) Quality Measures Quality Measures stroke Suspected type of Stroke: Unknown at this time Tenecteplase given: Reason(s) Tenecteplase not given: Refusal not given Rehab services: PT evaluation ordered VTE Prophylaxis: not indicated Antithrombotic by day 2:: ordered Statin ordered: >75 y/o moderate or high intensity dose Anticoagulation ordered for A-fib or flutter (current or hx): not indicated Advance care planning discussed with:: patient Medications Home Medications and Allergies Home Medications ?Medication ?Instructions ?Recorded ?Confirmed ?Type acetaminophen 500 mg tablet 500 mg PO TID PRN Pain fro m OA 02/10/25 02/10/25 History (Tylenol Extra Strength) carvedilol 3.125 mg tablet 3.125 mg PO BID Htn 5 02/10/25 History omeprazole 20 mg capsule,delayed 20 mg PO DAILY Gastri tis 02/10/25 02/10/25 History release psyllium husk (aspartame) 3.4 ea PO HS PRN Constipatio n 02/10/25 History gram/5.8 gram oral powder (Metamucil Sugar-Free (aspartame)) spironolactone 25 mg tablet 25 mg PO DAILY Htn 5 02/10/25 History trazodone 50 mg tablet 25 mg PO HS PRN Insomnia 02/10/25 History valsartan 160 mg tablet (Diovan) 160 mg PO .PM Htn 02/10/25 History Allergies Allergy/AdvReac Type Severity Reaction Status Date / Time NKA Allergy Uncoded 02/10/25 05:27 Visit Medications Sodium Chloride (Ns) 1,000 mls @ 100 mls/hr IV Q10H CASSANDRA Stop: 03/12/25 04:14 Last Admin: 02/10/25 05:40 Dose: 100 mls/hr Ondansetron HCl (Ondansetron Inj 2 Mg/Ml Inj 2 Ml) 4 mg IV Q4HR PRN PRN Reason: NAUSEA OR VOMITING Stop: 03/12/25 04:06 Last Admin: 02/10/25 05:40 Dose: 4 mg Discontinued Medications Lorazepam (Lorazepam 2 Mg/Ml Vial) 0.25 mg IVP X1 ONE Stop: 02/10/25 05:05 Last Admin: 02/10/25 05:42 Dose: 0.25 mg Assessment & Plan Plan 85-year-old female past medical history of hypertension admitted to [facility] due to due syncopal event. #Syncope #History of hypertension Assessment: Patient presented with 2 syncopal events witnessed. Patient's [place] syncope rule was 0. Patient's syncopal etiology can be due to neurally mediated versus cardiovascular or orthostatic hypotension. More than likely patient probably had a either a neurally versus a cardiovascular etiology of her syncope. From a neurology standpoint likely a vasovagal. From a cardiovascular we would have to rule out any arrhythmias like bradycardia arrhythmias however on EKG no AV blocks were noted, either long QT abnormality or a sick sinus syndrome. For that we would need to required to do an echocardiogram to assess if the patient has any valvular heart disease, aortic stenosis, or structural heart disease. Finally from an orthostatic hypotension standpoint patient does not look dehydrated or has acute blood loss. Patient does take trazodone to go to sleep however unlikely these is drug-induced. Patient does take several blood pressure medications including Coreg valsartan and hydrochlorothiazide which could mitigate and cause negative save chronotropic causing exacerbation of a orthostatic hypotension syncopal event. Things that were ruled out that could mimic a syncopal episode include hypoglycemia, electrolyte abnormality, anemia or hypoxia. Imaging showed; CT and CTA head and neck were normal. A chest x-ray, and chest abdomen pelvis CT was also normal. A cervical spine, lumbar spine and thoracic spine CT were also within normal limits. UA was done and it showed 2+ urine bacteria with positive leuk esterase. Patient denies any dysuria at this time Recommendations: -Orthostatic vitals -12-lead ECG in all patients. Look for abnormal ECG findings. -Admit to telemetry for cardiac monitoring for possible arrhythmias -Consider?Holter monitor, Event monitor, or Loop recorder in the outpatient setting -Echo (TTE) to r/o structural heart disease. -Head-up tilt table test as needed to differentiate b/n neurally mediated syncope vs. orthostatic HoTN. -HbA1c, FLP, TSH (to risk stratify or to assess for cardiovascular risk factors) -Urine Drug Screen. -Neuro-check Q4H -Bedside swallow evaluation before feeding. -PT / OT eval -IV Fluids, as needed - Patient's care was discussed with my attending physician, Dr. Esteban Arcos MD Internal Medicine PGY-3
--- NOTE | 2025-02-10 09:23 | ECHO_ITS ---
Transthoracic Echo Report Ht (in): 65 Wt (lb): 160 Exam Location: Echo Lab Status: Emergency [employer] Teacher: Mary Floyd Indications: Procedure Performed: BP: 112 / 60 HR: 87 Technical Quality: Technically difficult study MEASUREMENTS (Male / Female) Normal Values 2D ECHO LV Diastolic Diameter PLAX 3.5 cm 4.2 - 5.9 / 3.9 - 5.3 cm LV Systolic Diameter PLAX 2.4 cm IVS Diastolic Thickness 1.1 cm 0.6 - 1.0 / 0.6 - 0.9 cm LVPW Diastolic Thickness 1.2 cm 0.6 - 1.0 / 0.6 - 0.9 cm LV Relative Wall Thickness 0.7 LVOT Diameter 1.9 cm LA Volume Index 22.1 cm?/m? 16 - 28 cm?/m? M-MODE Aortic Root Diameter MM 2.7 cm LA Systolic Diameter MM 3.8 cm LA Ao Ratio MM 1.4 AV Cusp Separation MM 1.8 cm DOPPLER AV Peak Velocity 145.0 cm/s AV Peak Gradient 8.4 mmHg AV Mean Gradient 4.0 mmHg AV Velocity Time Integral 32.6 cm LVOT Peak Velocity 114.0 cm/s LVOT Peak Gradient 5.2 mmHg LVOT Velocity Time Integral 22.1 cm LVOT Cardiac Index 2962.7 cm?/min?m? AV Area Cont Eq vti 1.9 cm? AV Area Cont Eq pk 2.2 cm? MV Area PHT 4.4 cm? Mitral E Point Velocity 73.2 cm/s Mitral A Point Velocity 87.3 cm/s Mitral E to A Ratio 0.8 LV E' Lateral Velocity 7.0 cm/s Mitral E to LV E' Lateral Ratio 10.5 LV E' Septal Velocity 7.2 cm/s Mitral E to LV E' Septal Ratio 10.2 TR Peak Velocity 276.0 cm/s TR Peak Gradient 30.5 mmHg PV Peak Velocity 109.0 cm/s PV Peak Gradient 4.8 mmHg FINDINGS Left Ventricle Normal left ventricular size, systolic function with no obvious regional wall motion abnormalities. Mild LVH. Normal left ventricular diastolic filling pattern for age. The ejection fraction is visually estimated at 45%. There is grade I diastolic dysfunction. Right Ventricle The right ventricle is normal in size and systolic function. Possible Plata sign. The estimated right ventricular systolic pressure, 43 mmHg. RAP 10. Left Atrium The left atrium is normal by two-dimensional, color flow and Doppler imaging with no structural abnormalities, no thrombus formation present. Right Atrium The right atrium is normal by two-dimensional imaging, color flow and Doppler imaging with no structural abnormalities, no thrombus formation present. Atrial Septum The interatrial septum appears normal with no evidence of a shunt. Aorta The aorta is normal by two-dimensional, color flow and Doppler interrogation. Mitral Valve The mitral valve is normal by two-dimensional, color flow and Doppler interrogation. There is no significant mitral valve regurgitation, stenosis or prolapse. Aortic Valve The aortic valve is trileaflet and normal by two-dimensional, color flow and Doppler interrogation. There is no significant aortic valve regurgitation. Tricuspid Valve There is mild tricuspid valve regurgitation. Pulmonic Valve The pulmonic valve is not well visualized. There is no significant pulmonic valve regurgitation. Vessels The pulmonary artery appears normal. The inferior vena cava pulmonary and hepatic veins appear normal. Pericardium The pericardium is normal by two-dimensional imaging. There is no significant pericardial effusion. CONCLUSIONS Indication: Syncope Normal LV size and function. Mild LVH. Estimated EF 60-65%. Grade I diastolic dysfunction. Normal LV size and function. Possible Plata sign. Estimate RVSP mildy elevated at 41 mmHg. Mild TR. Mildly calcified non coronary cusp with Mild AV sclerosis without stenosis. Rogelio Orellana (Electronically Signed) Final Date: 11 February 2025 09:21
--- NOTE | 2025-02-10 09:25 | ESHP_ITS ---
Documentation for date of: 02/10/25 [facility] History of Present Illness Chief complaint: Syncopal episode History of present illness: Janice, is a 85 yo female with a history of spinal stenosis, hypertension, and previous surgeries including hysterectomy and gallbladder removal, presents with a fall and ankle fracture. The patient reports she was in her apartment when she suddenly fell to the floor without any preceding symptoms such as shortness of breath, palpitations, tunnel vision, dizziness, or flushing.The fall occurred in the evening when the patient was feeling cold. She denies tripping or any mechanical cause for the fall, stating she went straight down. After falling, she was unable to get up and had to call for help using her Tesha device. Her [id number] eventually came to assist her. The patient reports feeling sore in various places due to the fall but is unsure exactly how she landed. She attempted to navigate on the floor after regaining consciousness but was unsuccessful.The patient's primary complaint is pain in her right ankle, which has been diagnosed as fractured. She reports being unable to move the ankle without significant pain. Additionally, she mentions a small bump on the back right side of her head, though this area is not currently painful. Janice denies any recent changes in her medications or health status prior to the fall. She reports taking her usual medications, including omeprazole, Tylenol, carvedilol (3.125 mg twice daily), valsartan (25 mg once daily), spironolactone, vitamin D, and calcium. She denies use of any pain medications other than [id number] Tylenol, which she takes for chronic pain related to spinal stenosis, shoulder issues, and a ruptured tendon in her foot. The patient reports no recent fever, chills, or signs of infection, though she mentions noticing her urine burning, suggesting a possible urinary tract infection. She denies any history of heart problems or arrhythmias since starting her current medications. Janice reports no recent changes in her ability to ambulate, though she uses a cane when going outside her apartment. She denies experiencing shortness of breath with exertion or at night. Regarding her medical history, Janice reports receiving lumbar injections every 4-6 months for her spinal stenosis. She also mentions a history of polymyalgia rheumatica from 30 years ago, which led to a ruptured tendon in her foot and subsequent hip replacement. The patient denies any history of diabetes or kidney failure. Allergies: No known drug allergies Medical History: Spinal stenosis, Hypertension, Tendon rupture in foot, Polymyalgia rheumatica (30 years ago), Urinary incontinence Surgical History: Bone grafting and dental implant placement in the jaw (recent), Gallbladder removal with liver resection at [facility] (approximately 10 years after hysterectomy), Attempted gallbladder removal resulting in large incision, gallbladder found embedded in liver (approximately 10 years after hysterectomy), Hysterectomy with bilateral oophorectomy at age 51, Tonsillectomy at age 10 Medications and Supplements: Omeprazole, Tylenol, Vitamin D12, Calcium,Extra Vitamin D12, Spironolactone, Valsartan,Metamucil Family History:Brothers Open-heart surgery, history of cancer, Heart stent Social History: Lives in an apartment under the same roof as son and [id number], but in a separate unit, Uses a [employer]house machine for cycling in the kitchen; limited walking due to foot issues In the ED patient was found to have a blood pressure 139/85, pulse 100, respiratory rate of 17, temperature 97.9, O2 sat 97 on room air CBC was noncontributory CMP was significant for sodium of 132 a glucose of 119 and an osmolality of 266. Troponins are negative x 2 UA was significant for a pH of 8.5, leukocyte esterase positive and 2+ bacteria CT head was negative for acute hemorrhage mass effect or midline shift CTA head and neck did not show any LVO, arterial stenosis but did reveal multiple bilateral thyroid nodules Chest x-ray did not show any pathology Ankle x-ray of the right foot showed Acute bimalleolar fractures EKG showed sinus rhythm Patient will be admitted to [facility] for further work up of her syncopal episode. Review of Systems Review of Systems Systems Reviewed: All systems reviewed, normal except as documented Exam Vital Signs Temp Pulse Resp BP Pulse Ox O2 Del Method 97.9 F 80 18 110/65 95 Room Air 02/10/25 04:07 02/10/25 06:11 02/10/25 06:11 02/10/25 06:11 02/10/25 06:11 02/10/25 06:11 Narrative Exam Constitutional: Well nourished and in no acute distress CVS: RRR, S1 and S2 present, no murmurs, rubs or gallops . RESP: CTAB, no SOB, no rales, rhonchi or wheezing. No respiratory Distress GI: Normal BS, Nontender/Nondistended. MSK: Full range of motion, No trauma or deformities or masses. Ankle fracture present. Patient unable to move ankle without significant pain. Bone protrusion noted in the arch of the foot. Skin: Warm to touch, Dry. No rashes or lesions. No hematomas Neuro: telephone repairer II-XII grossly intact. Sensation grossly intact. Psych: (AAO) x3 . Appropriate mood and affect. Results: Labs 02/12/25 04:56 02/12/25 04:56 Labs: Short CBC 02/10/25 Range/Units 04:55 WBC 9.6 (3.6-11.0) Thou/mm3 Hgb 12.6 (12.0-16.0) g/dL Hct 35.6 L (36.0-46.0) % Plt Count 161 (140-440) Thou/mm3 BMP 02/10/25 04:55 Sodium 132 L Potassium 4.1 Chloride 99 Carbon Dioxide 26.6 BUN 15 Creatinine 0.8 Glucose 119 H Calcium 9.1 Cardiac Enzymes 02/10/25 02/10/25 Range/Units 04:55 07:00 Troponin I < 0.020 < 0.020 (0.0-0.045) ng/mL Liver Function 02/10/25 Range/Units 04:55 Total Bilirubin 0.8 (0.3-1.2) mg/dL AST 13 (0-34) U/L ALT 10 (10-49) U/L Alkaline Phosphatase 97 (46-116) U/L Albumin 3.9 (3.4-4.8) gm/dL Urine 02/10/25 Range/Units 06:00 Urine Color Lt-Yellow (Lt Yel-Yel) Urine Clarity Clear (Clear/Hazy) Urine pH 8.5 H (5.0-7.0) Ur Specific [place] 1.010 (1.001-1.035) Urine Protein Negative (Neg - Trace) Urine Glucose (UA) Negative (Negative) Quality Measures Quality Measures stroke Suspected type of Stroke: Unknown at this time Tenecteplase given: Reason(s) Tenecteplase not given: Refusal not given Rehab services: PT evaluation ordered VTE Prophylaxis: pharmaceutical Antithrombotic by day 2:: not indicated (describe) Statin ordered: not ordered Anticoagulation ordered for A- fib or flutter (current or hx): not indicated Advance care planning discussed with:: patient Medications Home Medications and Allergies Home Medications ?Medication ?Instructions ?Recorded ?Confirmed ?Type acetaminophen 500 mg tablet 500 mg PO TID PRN Pain fro m OA 02/10/25 02/10/25 History (Tylenol Extra Strength) carvedilol 3.125 mg tablet 3.125 mg PO BID Htn 5 02/10/25 History omeprazole 20 mg capsule,delayed 20 mg PO DAILY Gastri tis 02/10/25 02/10/25 History release psyllium husk (aspartame) 3.4 ea PO HS PRN Constipatio n 02/10/25 History gram/5.8 gram oral powder (Metamucil Sugar-Free (aspartame)) spironolactone 25 mg tablet 25 mg PO DAILY Htn 5 02/10/25 History trazodone 50 mg tablet 25 mg PO HS PRN Insomnia 02/10/25 History valsartan 160 mg tablet (Diovan) 160 mg PO .PM Htn 02/10/25 History Allergies Allergy/AdvReac Type Severity Reaction Status Date / Time NKA Allergy Uncoded 02/10/25 05:27 Visit Medications Acetaminophen (Acetaminophen 325 Mg Tablet) 650 mg PO Q6H PRN PRN Reason: Fever >101.5 Stop: 03/12/25 09:19 Heparin Sodium (Porcine) (Heparin Sod Inj 5000 Unit/Ml Vial) 5,000 unit SC Q8HR CASSANDRA Stop: 02/24/25 13:59 Sodium Chloride (Ns) 1,000 mls @ 100 mls/hr IV Q10H CASSANDRA Stop: 03/12/25 04:14 Last Admin: 02/10/25 05:40 Dose: 100 mls/hr Ondansetron HCl (Ondansetron Inj 2 Mg/Ml Inj 2 Ml) 4 mg IV Q4HR PRN PRN Reason: NAUSEA OR VOMITING Stop: 03/12/25 04:06 Last Admin: 02/10/25 05:40 Dose: 4 mg Ondansetron HCl (Ondansetron Inj 2 Mg/Ml Inj 2 Ml) 4 mg IV Q6H PRN; Protocol PRN Reason: NAUSEA OR VOMITING Stop: 03/12/25 09:19 Discontinued Medications Lorazepam (Lorazepam 2 Mg/Ml Vial) 0.25 mg IVP X1 ONE Stop: 02/10/25 05:05 Last Admin: 02/10/25 05:42 Dose: 0.25 mg Assessment & Plan Plan Janice, an 85 yo elderly female with a history of hypertension, spinal stenosis, and recent ankle fracture, presented with syncope and fall at home. #Syncope with fall Assessment: Patient experienced a sudden fall at home without any prodromal symptoms such as shortness of breath, palpitations, tunnel vision, or dizziness. She denies any chest pain or recent changes in medications. Patient has a history of hypertension managed with valsartan and carvedilol. No prior history of arrhythmias or cardiac issues reported. The etiology of the syncope is unclear at this time, necessitating further cardiac workup to rule out underlying cardiac causes. Teleneuro was consulted in the ED and states that there is likely no neurological cause for her syncopal episode. CT head and neck imaging revealed no pathology. Plan: - Admit patient for further evaluation and monitoring - Obtain cardiology consultation - Perform echocardiogram to assess cardiac structure and function - Initiate continuous cardiac monitoring to detect any arrhythmias ?Orthostatic vitals will be limited due to patient's ankle fracture. ?Also ordered TSH, hemoglobin A1c, B12 and folate levels ?Will make sure magnesium and phosphorus levels are within normal limits #UTI Assessent: Patient does complain of urinary frequency as well as some burning in urination the days leading up to this event. Her UA was positive for leukocyte esterase as well as a pH of greater than 8.5 with 2+ urine bacteria. She is afebrile and does not look septic. Plan: ? Urine cultures pending ? Ceftriaxone 1 g daily started 02/10/25? - Tylenol as needed for fevers #Ankle fracture Assessment: Patient sustained an ankle fracture during the fall. She reports significant pain and inability to move the affected ankle. X-ray findings confirm acute bimalleolar fracture Plan: - Immobilize the affected ankle with splint - Provide adequate pain management - Assess neurovascular status of the affected limb regularly - Initiate physical therapy and mobility training with assistive devices as appropriate - Follow up outpatient with podiatry #Hyponatremia Assessment: Patient presented with a sodium of 132 which seems to be around her baseline. Calculate serum osmolality of 266. Plan: ? Follow-up daily electrolytes ? Urine electrolytes ordered #Hypertension Assessment: Patient has a history of hypertension managed with valsartan 25 mg daily and carvedilol 3.125 mg twice daily. No recent medication changes reported. Plan: - Continue current antihypertensive medications: ? - Carvedilol 3.125 mg PO twice daily - will follow up on the [facility] rec #Hx of Spinal stenosis Assessment: Patient reports a history of spinal stenosis, primarily affecting L5 on the left side. She receives injections every 4-6 months from an orthopedic surgeon for pain management. Last injection was approximately 6 months ago. Plan: - Continue current pain management regimen with Tylenol as needed Health maintenance plan: Dispo: Patient will be monitored in telemetry for further workup of her syncopal episode Code: Full code DVT PPx: Heparin GI PPx: Pantoprazole FEN: regular diet I discussed patient's care with attending physician, Dr Perri Castro PGY3 Attending Provider Attestation/Addendum Patient seen and examined with resident physician Dr. Castro. Note reviewed, agree with findings and recommendations. Patient admitted with syncopal episode. Rule out cardiac etiology. So far all the workup negative. Dr. Borden was consulted. Suspect related to underlying UTI in the setting of mild dehydration. Hold off on all blood pressure medications.
[2025-02-10 11:03] LABS: Glucose Estimated Average 103 mg/dL (80-131); Hemoglobin A1C 5.2 % Hgb (4.8-6.0)
[2025-02-10] MEDS: cefTRIAXone/D5w 1gm IV premix 1 GM/50 ML BAG IV (11:09)
[2025-02-10 12:01] LABS: Vitamin B12 931 pg/mL (211-911)
--- NOTE | 2025-02-10 12:01 | PC.CC ---
Patient is an 85 year old female who presents to the Emergency Department due to Syncope. GERAWShana and CAMERA TUNING ENGINEER Student Verna made [id number] contact with patient. ASW introduced self, role, and reason for visit. Patient appeared alert and oriented to self, location, and situation. Patient provided consent for CAMERA TUNING ENGINEER to remain in the room during assessment. Patient was pleasant and engaged in initial assessment. Patient reports her medical decision maker in the event she is unable to make her own medical decisions would be her son, Dr. Dakotah Vences. Patient states she lives in her own apartment but it is on the same property as her son's home. She states she ambulates independently and completes her own ADL's. Patient reports she uses a cane when she goes out in the community. Patient's primary care provider is Lawanda Rayo and she uses [facility]. Upon discharge the patient plans to return home. financial services auditor to follow-up with any discharge needs.
[2025-02-10] MEDS: ACETAMINOPHEN 325 MG TABLET 650 MG PO ×2 (14:26→20:26)
[2025-02-10] MEDS: HEPARIN SOD INJ 5000 UNIT/ML VIAL SC ×2 (14:41→21:06)
[2025-02-10] MEDS: carVEDILOL 3.125 MG TABLET PO (17:20)
[2025-02-10 19:55] LABS: Chloride,Urine Random 57.1 mMol/L (55.0-125.0); Potassium,Urine Random 18 mMol/L (12-62); Sodium,Urine Random 47.7 mMol/L (20.0-110.0)
[2025-02-10] MEDS: traZODone HCL 50 MG TABLET 25 MG PO (21:06)
[2025-02-11] VITALS (12 sets, daily range): BP systolic 108–137; BP diastolic 50–81; PULSE 68–95; RESP 15–98; TEMP 36.3–36.4; O2SAT 96–98
[2025-02-11] MEDS: ACETAMINOPHEN 325 MG TABLET 650 MG PO ×4 (03:00→21:01)
[2025-02-11] MEDS: SODIUM CHLORIDE 0.9% 1000 ML 1,000 ML 100 ML IV ×2 (04:15→14:53)
[2025-02-11] MEDS: HEPARIN SOD INJ 5000 UNIT/ML VIAL SC (05:08)
[2025-02-11 05:24] LABS: Basophils % (Auto) 0 % (0-2.5); Eosinophils # (Auto) 0.1 Thou/mm3 (0.0-0.5); Eosinophils % (Auto) 2 % (0-10); Hematocrit 33.1 % (36.0-46.0); Hemoglobin 11.7 g/dL (12.0-16.0); Immature Granulocytes % (Auto) 0 % (0-0); Immature Granulocytes Auto 0.02 Thou/mm3 (0.00-0.00); Lymphocytes # (Auto) 1.3 Thou/mm3 (1.0-4.8); Lymphocytes % (Auto) 21 % (10-50); Mean Corpuscular HGB Conc 35.3 g/dl (31.0-37.0); Mean Corpuscular Volume 93 fL (80-100); Monocytes # (Auto) 0.7 Thou/mm3 (0.0-0.8); Monocytes % (Auto) 12 % (0-12); Neutrophils % (Auto) 65 % (37-80); Nucleated Red Blood Cell % 0 /100 WBC (0); Platelet Count 103 Thou/mm3 (140-440); RDW Standard Deviation 43.7 fL (36.4-46.3); Red Blood Count 3.55 Miln/mm3 (4.00-5.20); White Blood Count 6.1 Thou/mm3 (3.6-11.0)
[2025-02-11 06:16] LABS: Alanine Aminotransferase 9 U/L (10-49); Albumin, Serum 3.4 gm/dL (3.4-4.8); Albumin/Globulin Ratio 1.8 (1.2-2.2); Alkaline Phosphatase 80 U/L (46-116); Anion Gap 5 (7-16); Aspartate Amino Transferase 14 U/L (0-34); BUN/Creatinine Ratio 20 Ratio (12-20); Bilirubin,Total 0.5 mg/dL (0.3-1.2); Blood Urea Nitrogen 14 mg/dL (9-23); Calcium 8.3 mg/dL (8.3-10.6); Calcium (Corrected) 8.8 mg/dL (8.5-10.1); Carbon Dioxide 23.9 mMol/L (20.0-31.0); Chloride 104 mMol/L (98-107); Cholesterol 126 mg/dL (132-200); Creatinine (Component) 0.7 mg/dL (0.6-1.3); Estimated Creatinine Clearance 63.4 mL/min (>60); Globulin 1.9 gm/dL (2.3-3.5); Glucose 109 mg/dL (74-106); HDL Cholesterol 42 mg/dL (40-60); LDL Cholesterol,Calculated 70 mg/dL (0-130); Magnesium 1.9 mg/dL (1.6-2.6); Osmolality,Calculated 267 (275-295); Phosphorous 3.2 mg/dL (2.4-5.1); Potassium 4.1 mMol/L (3.4-5.1); Sodium 133 mMol/L (136-145); Thyroid Stimulating Hormone 1.19 uIU/mL (0.55-4.78); Total Protein 5.3 gm/dL (5.7-8.2); Triglycerides 69 mg/dL (30-150); eGFR > 60 See Note
[2025-02-11] MEDS: PANTOPRAZOLE 20 MG TABLET PO (08:07)
[2025-02-11] MEDS: carVEDILOL 3.125 MG TABLET PO (08:07)
[2025-02-11] MEDS: cefTRIAXone/D5w 1gm IV premix 1 GM/50 ML BAG IV (08:11)
--- NOTE | 2025-02-11 11:02 | PC.NURSE ---
Dr. Rayo in to see pt
--- NOTE | 2025-02-11 11:03 | PC.CC ---
Pt entered into [facility]
--- NOTE | 2025-02-11 11:03 | ESPR_ITS ---
Documentation for date of: 02/11/25 Subjective Subjective Interval history: No acute events overnight.?Patient seen and examined at bedside this afternoon.?She endorsed feeling well, no episodes of chest pain, shortness of breath, dizziness, palpitations, or headache overnight. Patient states that her only pain is when she tries to move the right foot. She sat up on the side of the bed for a bit today with Dr. Rayo earlier. Plan is for physical therapy to complete evaluation as unfortunately PT was not available today. Awaiting to have home health arranged as well as suitable equipment for mobility at home. Labs and vitals were reviewed.?BP ranged 113/66 to 132/75 in the last 24 hours. Telemetry reviewed and there were no arrhythmia events noted, remained normal sinus rhythm in the 70-80s. Orthostatics completed today from laying (113/66) to sitting (133/71) were negative. Labs showed likely dilution effect on the CBC, Hgb 11.7. Cholesterol is in normal range with TG 69, TC 126, LDL 70, HDL 42. TSH normal at 1.19. Echo done showed normal LV size and function. Mild LVH. Estimated EF 60-65%. Grade I diastolic dysfunction. Normal LV size and function. Possible Plata sign. Estimate RVSP mildy elevated at 41 mmHg. Mild TR. Mildly calcified non coronary cusp with Mild AV sclerosis without stenosis. Findings were discussed by Dr. Orellana with patient's son. Review of systems otherwise negative except what is mentioned above. Exam Vital Signs Temp Pulse Resp BP Pulse Ox O2 Del Method 97.6 F 73 17 113/66 98 Room Air 02/11/25 08:00 02/11/25 10:53 02/11/25 08:00 02/11/25 10:53 02/11/25 08:00 02/11/25 08:00 Narrative Exam Physical Exam General: Awake and in no acute distress. Conversational and non-toxic appearing. HEENT: Normocephalic, atraumatic, mucous membranes moist. Heart: Regular rate and rhythm, normal S1 and S2, no murmurs. Lungs: Clear to auscultation with no wheezing or crackles. Abdomen: Soft, nondistended, nontender, positive bowel sounds. ?No guarding or rebound tenderness. Neurologic: Alert and oriented x3, no gross neurological deficit, and patient able to move all 4 extremities. Extremities: No edema. Right foot wrapped in johny wrap. Skin: No rash or ecchymoses. Objective Labs 02/12/25 04:56 02/12/25 04:56 Labs: Laboratory Results - last 24 hr 02/10/25 02/10/25 02/11/25 04:55 19:38 04:27 WBC 6.1 RBC 3.55 L Hgb 11.7 L Hct 33.1 L MCV 93 MCH 33.0 MCHC 35.3 RDW Std Deviation 43.7 Plt Count 103 L D Neut % (Auto) 65 Lymph % (Auto) 21 [place] % (Auto) 12 Eos % (Auto) 2 Baso % (Auto) 0 Neut # (Auto) 4.0 Lymph # (Auto) 1.3 [place] # (Auto) 0.7 Eos # (Auto) 0.1 Baso # (Auto) 0.0 Immature Gran # (Auto) 0.02 H Absolute Nucleated RBC 0.00 Immature Gran % 0 Nucleated RBC % 0 Sodium 133 L Potassium 4.1 Chloride 104 Carbon Dioxide 23.9 Anion Gap 5 L BUN 14 Creatinine 0.7 Estim Creat Clear Calc 63.4 eGFR > 60 BUN/Creatinine Ratio [address] Glu mg/dL 103 Hemoglobin A1c 5.2 Calculated Osmolality 267 L Calcium 8.3 Corrected Calcium 8.8 Phosphorus 3.2 Magnesium 1.9 Total Bilirubin 0.5 AST 14 ALT 9 L Alkaline Phosphatase 80 Total Protein 5.3 L Albumin 3.4 D Globulin 1.9 L Albumin/Globulin Ratio 1.8 Triglycerides 69 Cholesterol 126 L LDL Cholesterol, Calc 70 HDL Cholesterol 42 Cholesterol/HDL Ratio 3.0 L Vitamin B12 931 H Folate 7.80 TSH 1.19 D Ur Random Sodium 47.7 Ur Random Potassium 18 Ur Random Chloride 57.1 Quality Measures Quality Measures stroke Suspected type of Stroke: Unknown at this time Tenecteplase given: Reason(s) Tenecteplase not given: Refusal not given Rehab services: PT evaluation ordered VTE Prophylaxis: not indicated Antithrombotic by day 2:: not indicated (describe) Statin ordered: not ordered Anticoagulation ordered for A- fib or flutter (current or hx): not indicated Advance care planning discussed with:: patient Assessment & Plan Assessment Current Active Medications: Generic Name Dose Route Start Last Admin Trade Name Freq PRN Reason Stop Dose Admin Acetaminophen 650 mg 02/10/25 20:20 02/11/25 09:31 Acetaminophen 325 Mg Tablet PO 03/12/25 09:19 650 mg Q6H PRN Administration Fever >100.4 or Pain Carvedilol 3.125 mg 02/10/25 17:30 02/11/25 08:07 Carvedilol 3.125 Mg Tablet PO 03/12/25 17:29 3.125 mg BIDWM CASSANDRA Administration Sodium Chloride 1,000 mls @ 100 mls/hr 02/10/25 04:15 02/11/25 04:15 Ns IV 03/12/25 04:14 100 mls/hr Q10H CASSANDRA Administration Ceftriaxone Sodium/Dextrose 1 gm in 50 mls @ 100 mls/hr 02/10/25 10:09 02/11/25 08:11 Rocephin/D5w 1gm Iv Premix IV 02/17/25 10:08 100 mls/hr QDAY CASSANDRA Administration Ondansetron HCl 4 mg 02/10/25 09:20 Ondansetron Inj 2 Mg/Ml Inj 2 Ml IV 03/12/25 09:19 Q6H PRN NAUSEA OR VOMITING Protocol Pantoprazole Sodium 20 mg 02/11/25 09:00 02/11/25 08:07 Pantoprazole 20 Mg Tablet PO 03/13/25 08:59 20 mg QDAY CASSANDRA Administration Trazodone HCl 25 mg 02/11/25 10:04 Trazodone Hcl 50 Mg Tablet PO 03/13/25 20:59 HS PRN insomnia Plan 85-year-old female with past medical history of hypertension, PVCs on beta- rudolph, and spinal stenosis who presented due to syncopal event and fall at home and was subsequently admitted for further evaluation and cardiology was consulted. #Syncope #Ground-level fall #Acute bimalleolar fracture #History of hypertension #History of frequent PVCs #History of spinal stenosis Assessment: Patient presented with 2 syncopal events. Patient's Nye syncope rule was 0. Patient's syncopal etiology can be due to neurally mediated, possibly vasovagal, versus cardiovascular. Patient does take trazodone to go to sleep however unlikely these is drug- induced. Patient does take several blood pressure medications including Coreg, valsartan, and spironolactone which could with chronotopic effect cause exacerbation of a orthostatic hypotension syncopal event. Other possible causes ruled out that could mimic a syncopal episode include hypoglycemia, electrolyte abnormality, anemia, or hypoxia. Imaging showed CT and CTA head and neck were normal. A chest x-ray, and chest abdomen pelvis CT was also normal. A cervical spine, lumbar spine and thoracic spine CT were also within normal limits. 02/11/2025: No bradycardia arrhythmias noted on the 24-hour telemetry and on EKG no AV blocks, long QT abnormality, or a sick sinus syndrome were noted. Cholesterol is in normal range with TG 69, TC 126, LDL 70, HDL 42. TSH normal at 1.19. A1c normal at 5.2. Echo done showed normal LV size and function. Mild LVH. Estimated EF 60-65%. Grade I diastolic dysfunction. Normal LV size and function. Possible Plata sign. Estimate RVSP mildy elevated at 41 mmHg. Mild TR. Mildly calcified non- coronary cusp with mild AV sclerosis without stenosis. No significant valve stenosis that would be likely to cause a syncopal event. The possibilities of PE with the Plata sign were discussed, as patient Wells criteria score is 0, there is no respiratory compromise, tachypnea, tachycardia, or any other symptoms indicative of a PE. There is a possibility that PE can present as a syncope, but as of now seems less likely. Orthostatics completed today from laying (113/66) to sitting (133/71) were negative. Patient does not look dehydrated or have acute blood loss. However UA was positive for leukocyte esterase and 2+ bacteria, there is a possibility of UTI and dehydration in the setting of infection. Antibiotic was started. Recommendations: -Continuous telemetry -Hold home carvedilol 3.125 mg BID -Monitor BP and restart home valsartan and spironolactone if necessary to maintain BP range -Consider?Holter monitor, Event monitor, or Loop recorder in the outpatient setting -Head-up tilt table test as needed to differentiate b/n neurally mediated syncope vs. orthostatic HTN. -Pending PT evaluation - Patient's care was discussed with the attending nursing unit clerk, Dr. Esteban Smith PGY-2 Attending Provider Attestation/Addendum I have personally seen and examined the patient separately on the above date of service and discussed the plan of care with the resident. I reviewed the resident Dr. Annmarie Smith consultation progress note and agree with the resident findings and plan in the note above and have also edited the documentation to reflect my findings and plan. Patient seen and examined at the bedside. Patient has been having more pain in the right leg with some leg swelling but the right lower leg is in the cast. PT not performed today and plan for home health versus short-term rehab. Orthostatics were completed today and were negative. Labs showed cholesterol in the normal range 126, LDL of 70, HDL of 42, TSH of 1.19. A1c is also in the normal range. Echo was performed today which showed normal LV size and function, normal RV size and function. Estimated EF 60 to 65%. Diastolic dysfunction. Possible Plata sign. Elevated RVSP at 41 mmHg. Mild TR. Mildly calcified noncoronary cusp with mild atherosclerosis without stenosis. Overall still appears to be vasovagal but will continue to rule out cardiogenic versus neurogenic syncope. Will continue further workup as outpatient for with Holter monitoring and eventually tilt table test if needed. Rogelio Orellana M.D. Interventional Cardiology
--- NOTE | 2025-02-11 12:44 | PD.RESPRO ---
Documentation for date of: 02/11/25 Subjective Subjective Interval history: Janice, is a 85 yo female with a history of spinal stenosis, hypertension, and previous surgeries including hysterectomy and gallbladder removal, presents with a fall and ankle fracture. The patient reports she was in her apartment when she suddenly fell to the floor without any preceding symptoms such as shortness of breath, palpitations, tunnel vision, dizziness, or flushing.The fall occurred in the evening when the patient was feeling cold. She denies tripping or any mechanical cause for the fall, stating she went straight down. After falling, she was unable to get up and had to call for help using her Tesha device. Her veclqukm-dv-qon eventually came to assist her. The patient reports feeling sore in various places due to the fall but is unsure exactly how she landed. She attempted to navigate on the floor after regaining consciousness but was unsuccessful.The patient's primary complaint is pain in her right ankle, which has been diagnosed as fractured. She reports being unable to move the ankle without significant pain. Additionally, she mentions a small bump on the back right side of her head, though this area is not currently painful. Janice denies any recent changes in her medications or health status prior to the fall. She reports taking her usual medications, including omeprazole, Tylenol, carvedilol (3.125 mg twice daily), valsartan (25 mg once daily), spironolactone, vitamin D, and calcium. She denies use of any pain medications other than [id number] Tylenol, which she takes for chronic pain related to spinal stenosis, shoulder issues, and a ruptured tendon in her foot. The patient reports no recent fever, chills, or signs of infection, though she mentions noticing her urine burning, suggesting a possible urinary tract infection. She denies any history of heart problems or arrhythmias since starting her current medications. Janice reports no recent changes in her ability to ambulate, though she uses a cane when going outside her apartment. She denies experiencing shortness of breath with exertion or at night. Regarding her medical history, Janice reports receiving lumbar injections every 4-6 months for her spinal stenosis. She also mentions a history of polymyalgia rheumatica from 30 years ago, which led to a ruptured tendon in her foot and subsequent hip replacement. The patient denies any history of diabetes or kidney failure. Allergies: No known drug allergies Medical History: Spinal stenosis, Hypertension, Tendon rupture in foot, Polymyalgia rheumatica (30 years ago), Urinary incontinence Surgical History: Bone grafting and dental implant placement in the jaw (recent), Gallbladder removal with liver resection at [facility] (approximately 10 years after hysterectomy), Attempted gallbladder removal resulting in large incision, gallbladder found embedded in liver (approximately 10 years after hysterectomy), Hysterectomy with bilateral oophorectomy at age 51, Tonsillectomy at age 10 Medications and Supplements: Omeprazole, Tylenol, Vitamin D12, Calcium,Extra Vitamin D12, Spironolactone, Valsartan,Metamucil Family History:Brothers Open-heart surgery, history of cancer, Heart stent Social History: Lives in an apartment under the same roof as son and [id number], but in a separate unit, Uses a [employer] machine for cycling in the kitchen; limited walking due to foot issues In the ED patient was found to have a blood pressure 139/85, pulse 100, respiratory rate of 17, temperature 97.9, O2 sat 97 on room air CBC was noncontributory CMP was significant for sodium of 132 a glucose of 119 and an osmolality of 266. Troponins are negative x 2 UA was significant for a pH of 8.5, leukocyte esterase positive and 2+ bacteria CT head was negative for acute hemorrhage mass effect or midline shift CTA head and neck did not show any LVO, arterial stenosis but did reveal multiple bilateral thyroid nodules Chest x-ray did not show any pathology Ankle x-ray of the right foot showed Acute bimalleolar fractures EKG showed sinus rhythm Patient will be admitted to [facility] for further work up of her syncopal episode. 02/11/2025 examined at bedside, feeling well today. Complained of trouble sleeping overnight and was given home TRAZODONE. Thus far workup has been reassuring, pending orthostatics to be done with PT present. Hgb 11.7, PLT 103 (dc's HEPARIN), WBC 6.1. Sodium 133 (chronic low), GLUCOSE and A1c WNL. Renal function and liver function normal. Lipid panel normal. TSH normal. Folate normal and B12 931. Echocardiogram showed EF 60-65% with grade 1 diastolic dysfunction. BP 118/59 this morning, discontinued antihypertensives and permitting mild HTN. Exam Vital Signs Temp Pulse Resp BP Pulse Ox O2 Del Method 97.6 F 72 17 113/66 98 Room Air 02/11/25 08:00 02/11/25 11:55 02/11/25 08:00 02/11/25 10:53 02/11/25 08:00 02/11/25 08:00 Narrative Exam Constitutional: Well nourished and in no acute distress CVS: RRR, S1 and S2 present, no murmurs, rubs or gallops . RESP: CTAB, no SOB, no rales, rhonchi or wheezing. No respiratory Distress GI: Normal BS, Nontender/Nondistended. MSK: Full range of motion, No trauma or deformities or masses. Ankle fracture present. Patient unable to move ankle without significant pain. Bone protrusion noted in the arch of the foot. Skin: Warm to touch, Dry. No rashes or lesions. No hematomas. Noted minor occipital bruise. 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 Sensation grossly intact. Psych: (AAO) x3 . Appropriate mood and affect. Objective Labs 02/12/25 04:56 02/12/25 04:56 Labs: Laboratory Results - last 24 hr 02/10/25 02/11/25 19:38 04:27 WBC 6.1 RBC 3.55 L Hgb 11.7 L Hct 33.1 L MCV 93 MCH 33.0 MCHC 35.3 RDW Std Deviation 43.7 Plt Count 103 L D Neut % (Auto) 65 Lymph % (Auto) 21 [place] % (Auto) 12 Eos % (Auto) 2 Baso % (Auto) 0 Neut # (Auto) 4.0 Lymph # (Auto) 1.3 [place] # (Auto) 0.7 Eos # (Auto) 0.1 Baso # (Auto) 0.0 Immature Gran # (Auto) 0.02 H Absolute Nucleated RBC 0.00 Immature Gran % 0 Nucleated RBC % 0 Sodium 133 L Potassium 4.1 Chloride 104 Carbon Dioxide 23.9 Anion Gap 5 L BUN 14 Creatinine 0.7 Estim Creat Clear Calc 63.4 eGFR > 60 BUN/Creatinine Ratio 20 Glucose 109 H Calculated Osmolality 267 L Calcium 8.3 Corrected Calcium 8.8 Phosphorus 3.2 Magnesium 1.9 Total Bilirubin 0.5 AST 14 ALT 9 L Alkaline Phosphatase 80 Total Protein 5.3 L Albumin 3.4 D Globulin 1.9 L Albumin/Globulin Ratio 1.8 Triglycerides 69 Cholesterol 126 L LDL Cholesterol, Calc 70 HDL Cholesterol 42 Cholesterol/HDL Ratio 3.0 L TSH 1.19 D Ur Random Sodium 47.7 Ur Random Potassium 18 Ur Random Chloride 57.1 Quality Measures Quality Measures stroke Suspected type of Stroke: Unknown at this time Tenecteplase given: Reason(s) Tenecteplase not given: Refusal not given Rehab services: PT evaluation ordered VTE Prophylaxis: mechanical Antithrombotic by day 2:: not indicated (describe) Statin ordered: n/a Anticoagulation ordered for A-fib or flutter (current or hx): not indicated Advance care planning discussed with:: patient Assessment & Plan Assessment Current Active Medications: Generic Name Dose Route Start Last Admin Trade Name Freq PRN Reason Stop Dose Admin Acetaminophen 650 mg 02/10/25 20:20 02/11/25 09:31 Acetaminophen 325 Mg Tablet PO 03/12/25 09:19 650 mg Q6H PRN Administration Fever >100.4 or Pain Carvedilol 3.125 mg 02/10/25 17:30 02/11/25 08:07 Carvedilol 3.125 Mg Tablet PO 03/12/25 17:29 3.125 mg BIDWM CASSANDRA Administration Sodium Chloride 1,000 mls @ 100 mls/hr 02/10/25 04:15 02/11/25 04:15 Ns IV 03/12/25 04:14 100 mls/hr Q10H CASSANDRA Administration Ceftriaxone Sodium/Dextrose 1 gm in 50 mls @ 100 mls/hr 02/10/25 10:09 02/11/25 08:11 Rocephin/D5w 1gm Iv Premix IV 02/17/25 10:08 100 mls/hr QDAY CASSANDRA Administration Ondansetron HCl 4 mg 02/10/25 09:20 Ondansetron Inj 2 Mg/Ml Inj 2 Ml IV 03/12/25 09:19 Q6H PRN NAUSEA OR VOMITING Protocol Pantoprazole Sodium 20 mg 02/11/25 09:00 02/11/25 08:07 Pantoprazole 20 Mg Tablet PO 03/13/25 08:59 20 mg QDAY CASSANDRA Administration Trazodone HCl 25 mg 02/11/25 10:04 Trazodone Hcl 50 Mg Tablet PO 03/13/25 20:59 HS PRN insomnia Plan Janice, an 85 yo elderly female with a history of hypertension, spinal stenosis, and recent ankle fracture, presented with syncope and fall at home. Appreciate recommendations from cardiology team. Syncope with fall Assessment: Patient experienced a sudden fall at home without any prodromal symptoms such as shortness of breath, palpitations, tunnel vision, or dizziness. She denies any chest pain or recent changes in medications. Patient has a history of hypertension managed with valsartan and carvedilol. No prior history of arrhythmias or cardiac issues reported. The etiology of the syncope is unclear at this time, necessitating further cardiac workup to rule out underlying cardiac causes. Teleneuro was consulted in the ED and states that there is likely no neurological cause for her syncopal episode. CT head and neck imaging revealed no pathology. Echocardiogram EF 60-65, grade 1 diastolic dysfunction, no abnormally stenotic valves. GLUCOSE, A1c, TSH, B12, folate within normal limits. No signs of arrhythmia. ? Pending orthostatics with PT ? Cardiology recommended Holter monitor outpatient ? Maintain K>4.0 and Mag>2.0 UTI Assessent: Patient does complain of urinary frequency as well as some burning in urination the days leading up to this event. Her UA was positive for leukocyte esterase as well as a pH of greater than 8.5 with 2+ urine bacteria. She is afebrile and does not look septic. 24-hour blood and urine culture showing no growth ? On CEFTRIAXONE 1 g daily (02/10 to present) ? TYLENOL PRN for pain/fever Thrombocytopenia PLT 103 after starting HEPARIN. No signs of active bleed. ? Discontinued HEPARIN ? Continue SCDs ? Pending coag study Ankle fracture Assessment: Patient sustained an ankle fracture during the fall. She reports significant pain and inability to move the affected ankle. X-ray findings confirm acute bimalleolar fracture Plan: - Immobilize the affected ankle with splint - Provide adequate pain management - Assess neurovascular status of the affected limb regularly - Initiate physical therapy and mobility training with assistive devices as appropriate - Follow up outpatient with podiatry ? Recommended home with home health Hyponatremia, chronic Chronic mild SIADH with hyponatremia, sodium 133 around baseline Urine electrolytes normal ? Daily labs Hypertension Assessment: Patient has a history of hypertension managed with valsartan 25 mg daily and carvedilol 3.125 mg twice daily. No recent medication changes reported. Would likely benefit from permissive mild hypertension ? Discontinue home CARVEDILOL ? Daily labs Hx of Spinal stenosis Assessment: Patient reports a history of spinal stenosis, primarily affecting L5 on the left side. She receives injections every 4-6 months from an orthopedic surgeon for pain management. Last injection was approximately 6 months ago. Plan: - Continue current pain management regimen with Tylenol as needed Insomnia Continue home TRAZODONE 25 mg PRN Health maintenance Diet: Dysphagia 2 GI prophylaxis: PROTONIX DVT prophylaxis: SCDs Antibiotics: CEFTRIAXONE CODE STATUS: Full code Disposition: Pending PT eval Thank you for the opportunity to participate in the patient's care. Case was discussed with attending, Dr. Rayo. Betsey Ponce DO PGYI Attending Provider Attestation/Addendum Patient seen and examined with resident physician Dr. Leggett. Note reviewed, agree with findings and recommendations. Patient admitted with syncopal episode. Rule out cardiac etiology. So far all the workup negative. Dr. Borden was consulted. Suspect related to underlying UTI in the setting of mild dehydration. Hold off on all blood pressure medications. 02/11/2025 patient seen by cardiology-recommended orthostatic blood pressures. Continue with gentle IV fluids. Hold off on all blood pressure medications. Decrease the dose of trazodone. Plan of care discussed with Tdzllr-puulaypf-ro-law. Regarding her right ankle fracture needs outpatient Ortho consult. Sodium seems to be stable.Echocardiogram showed normal ejection fraction. Will plan to discharge with home health once physical therapy had evaluated patient.
[2025-02-11] MEDS: traZODone HCL 50 MG TABLET 25 MG PO (21:02)
[2025-02-11] MEDS: Milk Of Magnesia Susp 30 ML UDC PO (22:14)
[2025-02-11] MEDS: traMADol HCL 50 MG TABLET PO (22:20)
[2025-02-12] VITALS (9 sets, daily range): BP systolic 128–159; BP diastolic 72–87; PULSE 64–110; RESP 14–95; TEMP 36–36.4; O2SAT 94–99
[2025-02-12] MEDS: SODIUM CHLORIDE 0.9% 1000 ML 1,000 ML 100 ML IV ×3 (01:15→23:53)
[2025-02-12] MEDS: ACETAMINOPHEN 500 MG TABLET PO ×3 (03:01→16:01)
[2025-02-12] MEDS: ONDANSETRON INJ 2 MG/ML INJ 2 ML 4 MG IV ×2 (04:56→12:33)
[2025-02-12 05:45] LABS: Basophils % (Auto) 0 % (0-2.5); Eosinophils # (Auto) 0.1 Thou/mm3 (0.0-0.5); Eosinophils % (Auto) 2 % (0-10); Hematocrit 33.3 % (36.0-46.0); Hemoglobin 11.6 g/dL (12.0-16.0); Immature Granulocytes % (Auto) 0 % (0-0); Immature Granulocytes Auto 0.02 Thou/mm3 (0.00-0.00); Lymphocytes # (Auto) 0.9 Thou/mm3 (1.0-4.8); Lymphocytes % (Auto) 13 % (10-50); Mean Corpuscular HGB Conc 34.8 g/dl (31.0-37.0); Mean Corpuscular Hemoglobin 32.4 pg (25.0-35.0); Mean Corpuscular Volume 93 fL (80-100); Monocytes # (Auto) 0.8 Thou/mm3 (0.0-0.8); Monocytes % (Auto) 11 % (0-12); Neutrophils # (Auto) 5.4 Thou/mm3 (1.8-7.7); Neutrophils % (Auto) 74 % (37-80); Nucleated Red Blood Cell % 0 /100 WBC (0); Platelet Count 106 Thou/mm3 (140-440); RDW Standard Deviation 42.1 fL (36.4-46.3); Red Blood Count 3.58 Miln/mm3 (4.00-5.20); White Blood Count 7.3 Thou/mm3 (3.6-11.0)
[2025-02-12 05:54] LABS: Partial Thromboplastin Time 21.4 Seconds (22.0-36.0)
[2025-02-12 06:45] LABS: Alanine Aminotransferase 10 U/L (10-49); Albumin, Serum 3.6 gm/dL (3.4-4.8); Albumin/Globulin Ratio 1.7 (1.2-2.2); Alkaline Phosphatase 82 U/L (46-116); Anion Gap 4 (7-16); Aspartate Amino Transferase 17 U/L (0-34); BUN/Creatinine Ratio 17 Ratio (12-20); Bilirubin,Total 0.6 mg/dL (0.3-1.2); Blood Urea Nitrogen 10 mg/dL (9-23); Calcium 8.6 mg/dL (8.3-10.6); Calcium (Corrected) 8.9 mg/dL (8.5-10.1); Chloride 103 mMol/L (98-107); Creatinine (Component) 0.6 mg/dL (0.6-1.3); Globulin 2.1 gm/dL (2.3-3.5); Glucose 129 mg/dL (74-106); Osmolality,Calculated 265 (275-295); Phosphorous 3.3 mg/dL (2.4-5.1); Potassium 4.2 mMol/L (3.4-5.1); Sodium 132 mMol/L (136-145); Total Protein 5.7 gm/dL (5.7-8.2); eGFR > 60 See Note
[2025-02-12] MEDS: cefTRIAXone/D5w 1gm IV premix 1 GM/50 ML BAG IV (08:27)
[2025-02-12] MEDS: PANTOPRAZOLE 20 MG TABLET PO (08:27)
--- NOTE | 2025-02-12 09:37 | PD.NEPHPROG ---
Documentation for date of: 02/12/25 Subjective Subjective Interval history: Janice, is a 85 yo female with a history of spinal stenosis, hypertension, and previous surgeries including hysterectomy and gallbladder removal, presents with a fall and ankle fracture. The patient reports she was in her apartment when she suddenly fell to the floor without any preceding symptoms such as shortness of breath, palpitations, tunnel vision, dizziness, or flushing.The fall occurred in the evening when the patient was feeling cold. She denies tripping or any mechanical cause for the fall, stating she went straight down. After falling, she was unable to get up and had to call for help using her Tesha device. Her bdhyzuba-uw-hjc eventually came to assist her. The patient reports feeling sore in various places due to the fall but is unsure exactly how she landed. She attempted to navigate on the floor after regaining consciousness but was unsuccessful.The patient's primary complaint is pain in her right ankle, which has been diagnosed as fractured. She reports being unable to move the ankle without significant pain. Additionally, she mentions a small bump on the back right side of her head, though this area is not currently painful. Janice denies any recent changes in her medications or health status prior to the fall. She reports taking her usual medications, including omeprazole, Tylenol, carvedilol (3.125 mg twice daily), valsartan (25 mg once daily), spironolactone, vitamin D, and calcium. She denies use of any pain medications other than lddb-ubk-ixiiehm Tylenol, which she takes for chronic pain related to spinal stenosis, shoulder issues, and a ruptured tendon in her foot. The patient reports no recent fever, chills, or signs of infection, though she mentions noticing her urine burning, suggesting a possible urinary tract infection. She denies any history of heart problems or arrhythmias since starting her current medications. Janice reports no recent changes in her ability to ambulate, though she uses a cane when going outside her apartment. She denies experiencing shortness of breath with exertion or at night. Regarding her medical history, Janice reports receiving lumbar injections every 4-6 months for her spinal stenosis. She also mentions a history of polymyalgia rheumatica from 30 years ago, which led to a ruptured tendon in her foot and subsequent hip replacement. The patient denies any history of diabetes or kidney failure. In the ED patient was found to have a blood pressure 139/85, pulse 100, respiratory rate of 17, temperature 97.9, O2 sat 97 on room air CBC was noncontributory CMP was significant for sodium of 132 a glucose of 119 and an osmolality of 266. Troponins are negative x 2 UA was significant for a pH of 8.5, leukocyte esterase positive and 2+ bacteria CT head was negative for acute hemorrhage mass effect or midline shift CTA head and neck did not show any LVO, arterial stenosis but did reveal multiple bilateral thyroid nodules Chest x-ray did not show any pathology Ankle x-ray of the right foot showed Acute bimalleolar fractures EKG showed sinus rhythm Patient will be admitted to [facility] for further work up of her syncopal episode. 02/12/2025 patient resting comfortably. Today she seems to be feeling nauseated after the tramadol dose. Increase her Tylenol to 650 every 6 hours. Had a long conversation with son and sevexaxu-yz-qio at bedside. Physical therapy recommended rehab. Patient agreed to go to rehab. Blood pressure on the higher side. Resumed carvedilol. Hemoglobin 11.6, platelets 106. Sodium 132, creatinine 0.6, calcium 8.9, phosphorus 3.3, magnesium 2, LFTs normal Review of Systems Review of Systems Narrative Review of Systems: CONSTITUTIONAL: Patient denies any fever, chills. Feeling fatigued today HEENT: Denies any visual disturbances or hearing problems. CARDIOVASCULAR: Patient denies any chest pain, shortness of breath, swelling in the lower extremities. PULMONARY: Patient denies any shortness of breath, cough. GASTROINTESTINAL: Patient denies any abdominal pain, Complaining of nausea, vomiting, constipation GENITOURINARY: Patient denies any urinary symptoms of burning or frequency or hematuria, denies any form in the urine. SKIN: Denies any rash. MUSCULOSKELETAL: Right ankle pain NEUROLOGICAL: Denies any neurological problems of strokes, seizures or confusion. Denies any memory problems. PSYCHIATRIC: Denies any depression or anxiety. LYMPHATICS : No lymphadenopathy Exam Vital Signs Temp Pulse Resp BP Pulse Ox O2 Del Method 36.1 C 64 16 137/87 H 99 Room Air 02/12/25 08:00 02/12/25 08:00 02/12/25 08:00 02/12/25 08:00 02/12/25 08:00 02/12/25 08:00 Narrative Exam GENERAL APPEARANCE: Patient seems to be comfortable, adequately hydrated and nourished. Son and cbxbxuaa-mn-pwz at bedside HEENT: EOMI, PERRLA NECK: Neck supple, no JVD or bruit CARDIOVASCULAR: Heart regular, no murmurs LUNGS/CHEST: Chest clear to auscultation. No rales, rhonchi, wheezing ABDOMEN: Soft, nontender, nondistended. No masses. Normal bowel sounds. EXTREMITIES: No edema, clubbing or cyanosis. SKIN: Skin exam normal without any rashes MUSCULOSKELETAL: Right ankle wrapped PSYCHIATRIC: Normal mood, affect LYMPHATICS: No lymphadenopathy noted NEUROLOGICAL : No neurological deficits Objective Labs 02/12/25 04:56 02/12/25 04:56 Labs: Laboratory Results - last 24 hr 02/12/25 04:56 WBC 7.3 RBC 3.58 L Hgb 11.6 L Hct 33.3 L MCV 93 MCH 32.4 MCHC 34.8 RDW Std Deviation 42.1 Plt Count 106 L Neut % (Auto) 74 Lymph % (Auto) 13 [place] % (Auto) 11 Eos % (Auto) 2 Baso % (Auto) 0 Neut # (Auto) 5.4 Lymph # (Auto) 0.9 L [place] # (Auto) 0.8 Eos # (Auto) 0.1 Baso # (Auto) 0.0 Immature Gran # (Auto) 0.02 H Absolute Nucleated RBC 0.00 Immature Gran % 0 Nucleated RBC % 0 PT 11.0 INR 1.0 APTT 21.4 L Sodium 132 L Potassium 4.2 Chloride 103 Carbon Dioxide 25.0 Anion Gap 4 L BUN 10 Creatinine 0.6 Estim Creat Clear Calc 74.0 eGFR > 60 BUN/Creatinine Ratio 17 Glucose 129 H Calculated Osmolality 265 L Calcium 8.6 Corrected Calcium 8.9 Phosphorus 3.3 Magnesium 2.0 Total Bilirubin 0.6 AST 17 ALT 10 Alkaline Phosphatase 82 Total Protein 5.7 Albumin 3.6 Globulin 2.1 L Albumin/Globulin Ratio 1.7 Assessment & Plan Additional Assessment & Plan Additional Plan: Janice, an 85 yo elderly female with a history of hypertension, spinal stenosis, and recent ankle fracture, presented with syncope and fall at home. Syncope with fall Assessment: Patient experienced a sudden fall at home without any prodromal symptoms such as shortness of breath, palpitations, tunnel vision, or dizziness. She denies any chest pain or recent changes in medications. Patient has a history of hypertension managed with valsartan and carvedilol. No prior history of arrhythmias or cardiac issues reported. The etiology of the syncope is unclear at this time, necessitating further cardiac workup to rule out underlying cardiac causes. Teleneuro was consulted in the ED and states that there is likely no neurological cause for her syncopal episode. CT head and neck imaging revealed no pathology. Echocardiogram EF 60-65, grade 1 diastolic dysfunction, no abnormally stenotic valves. GLUCOSE, A1c, TSH, B12, folate within normal limits. No signs of arrhythmia. ?Suspect orthostatic hypotension ? Cardiology recommended Holter monitor outpatient ? Maintain K>4.0 and Mag>2.0 Cardiology williamson she can be discharged. UTI Assessent: Patient does complain of urinary frequency as well as some burning in urination the days leading up to this event. Her UA was positive for leukocyte esterase as well as a pH of greater than 8.5 with 2+ urine bacteria. She is afebrile and does not look septic. 24-hour blood and urine culture showing no growth ? On CEFTRIAXONE 1 g daily (02/10 to present) ? TYLENOL PRN for pain/fever Thrombocytopenia PLT 103 after starting HEPARIN. No signs of active bleed. ? Discontinued HEPARIN ? Continue SCDs Ankle fracture Assessment: Patient sustained an rt ankle fracture during the fall. She reports significant pain and inability to move the affected ankle. X-ray findings confirm acute bimalleolar fracture Plan: - Immobilize the affected ankle with splint - Provide adequate pain management - Assess neurovascular status of the affected limb regularly - Initiate physical therapy and mobility training with assistive devices as appropriate - Follow up outpatient with podiatry ?PT recommended rehab Hyponatremia, chronic Chronic mild SIADH with hyponatremia, sodium 133 around baseline Urine electrolytes normal ? Daily labs Hypertension Assessment: Patient has a history of hypertension managed with valsartan 25 mg daily and carvedilol 3.125 mg twice daily. No recent medication changes reported. Would likely benefit from permissive mild hypertension ? continue home CARVEDILOL ? Daily labs Hx of Spinal stenosis Assessment: Patient reports a history of spinal stenosis, primarily affecting L5 on the left side. She receives injections every 4-6 months from an orthopedic surgeon for pain management. Last injection was approximately 6 months ago. Plan: - Continue current pain management regimen with Tylenol as needed Insomnia Continue home TRAZODONE 25 mg PRN Health maintenance Diet: Dysphagia 2 GI prophylaxis: PROTONIX DVT prophylaxis: SCDs Antibiotics: CEFTRIAXONE CODE STATUS: Full code Disposition: Rehab
--- NOTE | 2025-02-12 10:37 | ESPR_ITS ---
Documentation for date of: 02/12/25 Subjective Subjective Interval history: Patient seen and examined in the AM. Overnight patient described alot of pain in the R ankle, also complains of constipation. However, patient feels well despite a tiresome night and ankle pain. Exam Vital Signs Temp Pulse Resp BP Pulse Ox O2 Del Method 97.0 F 64 16 137/87 H 99 Room Air 02/12/25 08:00 02/12/25 08:00 02/12/25 08:00 02/12/25 08:00 02/12/25 08:00 02/12/25 08:00 Narrative Exam Physical Exam General: Awake and in no acute distress. Conversational and non-toxic appearing. HEENT: Normocephalic, atraumatic, mucous membranes moist. Heart: Regular rate and rhythm, normal S1 and S2, no murmurs. Lungs: Clear to auscultation with no wheezing or crackles. Abdomen: Soft, nondistended, nontender, positive bowel sounds. ?No guarding or rebound tenderness. Neurologic: Alert and oriented x3, no gross neurological deficit, and patient able to move all 4 extremities. Extremities: No edema. Right foot wrapped in johny wrap. Skin: No rash or ecchymoses. Objective Labs 02/12/25 04:56 02/12/25 04:56 Labs: Laboratory Results - last 24 hr 02/12/25 04:56 WBC 7.3 RBC 3.58 L Hgb 11.6 L Hct 33.3 L MCV 93 MCH 32.4 MCHC 34.8 RDW Std Deviation 42.1 Plt Count 106 L Neut % (Auto) 74 Lymph % (Auto) 13 [place] % (Auto) 11 Eos % (Auto) 2 Baso % (Auto) 0 Neut # (Auto) 5.4 Lymph # (Auto) 0.9 L [place] # (Auto) 0.8 Eos # (Auto) 0.1 Baso # (Auto) 0.0 Immature Gran # (Auto) 0.02 H Absolute Nucleated RBC 0.00 Immature Gran % 0 Nucleated RBC % 0 PT 11.0 INR 1.0 APTT 21.4 L Sodium 132 L Potassium 4.2 Chloride 103 Carbon Dioxide 25.0 Anion Gap 4 L BUN 10 Creatinine 0.6 Estim Creat Clear Calc 74.0 eGFR > 60 BUN/Creatinine Ratio 17 Glucose 129 H Calculated Osmolality 265 L Calcium 8.6 Corrected Calcium 8.9 Phosphorus 3.3 Magnesium 2.0 Total Bilirubin 0.6 AST 17 ALT 10 Alkaline Phosphatase 82 Total Protein 5.7 Albumin 3.6 Globulin 2.1 L Albumin/Globulin Ratio 1.7 Quality Measures Quality Measures stroke Suspected type of Stroke: Unknown at this time Tenecteplase given: Reason(s) Tenecteplase not given: Refusal not given Rehab services: PT evaluation ordered VTE Prophylaxis: pharmaceutical Antithrombotic by day 2:: contraindicated (describe) Statin ordered: >75 y/o moderate or high intensity dose Anticoagulation ordered for A-fib or flutter (current or hx): not indicated Advance care planning discussed with:: patient Assessment & Plan Assessment Current Active Medications: Generic Name Dose Route Start Last Admin Trade Name Freq PRN Reason Stop Dose Admin Acetaminophen 500 mg 02/12/25 00:12 02/12/25 09:28 Acetaminophen 500 Mg Tablet PO 03/14/25 00:11 500 mg Q6HR PRN Administration FEVER > 100.4 OR PAIN Carvedilol 3.125 mg 02/10/25 17:30 02/11/25 08:07 Carvedilol 3.125 Mg Tablet PO 03/12/25 17:29 3.125 mg BIDWM CASSANDRA Administration Sodium Chloride 1,000 mls @ 100 mls/hr 02/10/25 04:15 02/12/25 01:15 Ns IV 03/12/25 04:14 100 mls/hr Q10H CASSANDRA Administration Ceftriaxone Sodium/Dextrose 1 gm in 50 mls @ 100 mls/hr 02/10/25 10:09 02/12/25 08:27 Rocephin/D5w 1gm Iv Premix IV 02/17/25 10:08 100 mls/hr QDAY CASSANDRA Administration Magnesium Hydroxide 30 ml 02/11/25 22:03 02/11/25 22:14 Milk Of Magnesia Susp 30 Ml Udc PO 03/13/25 22:02 30 ml QDAY PRN Administration CONSTIPATION Protocol Ondansetron HCl 4 mg 02/10/25 09:20 02/12/25 04:56 Ondansetron Inj 2 Mg/Ml Inj 2 Ml IV 03/12/25 09:19 4 mg Q6H PRN Administration NAUSEA OR VOMITING Protocol Pantoprazole Sodium 20 mg 02/11/25 09:00 02/12/25 08:27 Pantoprazole 20 Mg Tablet PO 03/13/25 08:59 20 mg QDAY CASSANDRA Administration Trazodone HCl 25 mg 02/11/25 10:04 02/11/25 21:02 Trazodone Hcl 50 Mg Tablet PO 03/13/25 20:59 25 mg HS PRN Administration insomnia Plan 85-year-old female with past medical history of hypertension, PVCs on beta- rudolph, and spinal stenosis who presented due to syncopal event and fall at home and was subsequently admitted for further evaluation and cardiology was consulted. #Syncope #Ground-level fall #Acute bimalleolar fracture #History of hypertension #History of frequent PVCs #History of spinal stenosis Assessment: Patient presented with 2 syncopal events. Patient's [place] syncope rule was 0. Patient's syncopal etiology can be due to neurally mediated, possibly vasovagal, versus cardiovascular. Patient does take trazodone to go to sleep however unlikely these is drug- induced. Patient does take several blood pressure medications including Coreg, valsartan, and spironolactone which could with chronotopic effect cause exacerbation of a orthostatic hypotension syncopal event. Other possible causes ruled out that could mimic a syncopal episode include hypoglycemia, electrolyte abnormality, anemia, or hypoxia. Imaging showed CT and CTA head and neck were normal. A chest x-ray, and chest abdomen pelvis CT was also normal. A cervical spine, lumbar spine and thoracic spine CT were also within normal limits. 02/11/2025: No bradycardia arrhythmias noted on the 24-hour telemetry and on EKG no AV blocks, long QT abnormality, or a sick sinus syndrome were noted. Cholesterol is in normal range with TG 69, TC 126, LDL 70, HDL 42. TSH normal at 1.19. A1c normal at 5.2. Echo done showed normal LV size and function. Mild LVH. Estimated EF 60-65%. Grade I diastolic dysfunction. Normal LV size and function. Possible Plata sign. Estimate RVSP mildy elevated at 41 mmHg. Mild TR. Mildly calcified non- coronary cusp with mild AV sclerosis without stenosis. No significant valve stenosis that would be likely to cause a syncopal event. The possibilities of PE with the Plata sign were discussed, as patient Wells criteria score is 0, there is no respiratory compromise, tachypnea, tachycardia, or any other symptoms indicative of a PE. There is a possibility that PE can present as a syncope, but as of now seems less likely. Orthostatics completed today from laying (113/66) to sitting (133/71) were negative. Patient does not look dehydrated or have acute blood loss. However UA was positive for leukocyte esterase and 2+ bacteria, there is a possibility of UTI and dehydration in the setting of infection. Antibiotic was started. Recommendations: -Hold home carvedilol 3.125 mg BID -Monitor BP and restart home valsartan and spironolactone if necessary to maintain BP range -Consider?Holter monitor, Event monitor, or Loop recorder in the outpatient setting -Head-up tilt table test as needed to differentiate b/n neurally mediated syncope vs. orthostatic HTN. -Pending PT evaluation - - Patient's care was discussed with my attending physician, Dr. Esteban Arcos MD Internal Medicine PGY-3 Attending Provider Attestation/Addendum I have personally seen and examined the patient separately on the above date of service and discussed the plan of care with the resident. I reviewed the resident Dr. Delon Jacobson consultation progress note and agree with the resident findings and plan in the note above and have also edited the documentation to reflect my findings and plan. Patient seen and examined at the bedside. Still has some pain in the right leg but better than before. Still no PT evaluation has been performed and planning for discharge home health versus short-term rehab. Patient informs that she did not have bowel movements and was given milk of magnesia and recommended to start Colace per the patient 2. Orthostatics were negative. Labs showed cholesterol in the normal range 126, LDL of 70, HDL of 42, TSH of 1.19. A1c is also in the normal range. Echo was performed today which showed normal LV size and function, normal RV size and function. Estimated EF 60 to 65%. Diastolic dysfunction. Possible Plata sign. Elevated RVSP at 41 mmHg. Mild TR. Mildly calcified noncoronary cusp with mild atherosclerosis without stenosis. Overall still appears to be vasovagal but will continue to rule out cardiogenic versus neurogenic syncope. Will continue further workup as outpatient for with Holter monitoring and eventually tilt table test if needed. Rogelio Orellana M.D. Interventional Cardiology
--- NOTE | 2025-02-12 12:17 | PC.PT ---
PT Evaluation completed. Recommend short term SNF placement due to decline in function and increased care requirement.
--- NOTE | 2025-02-12 13:51 | PC.SS ---
Addendum entered by Iris Schneider 02/12/25 16:48: Dr. Vences requesting to be contacted when SNF placement is found at [phone]. If he is not available, he asks that his spouse Winnie Fragajackdavid [phone] be contacted. Addendum entered by Iris Schneider 02/12/25 14:36: SNF referrals submitted via Jeff to the [facility] facilities: [facility], [facility], [facility], [facility], [facility], and [facility]. Preference is [facility] then [facility]. PASRR LVL2 pending clearance. Original Note: SS informed by [place] family and patient are requesting SNF. SS met with patient and son Dr. Ghosh at bedside. Both are requesting [facility] as first choice and [facility]. SS to submit referral and PASRR.
[2025-02-12] MEDS: carVEDILOL 3.125 MG TABLET PO (17:18)
[2025-02-12] MEDS: VALSARTAN 80 MG TABLET PO (20:49)
[2025-02-12] MEDS: traZODone HCL 50 MG TABLET 25 MG PO (20:49)
[2025-02-12] MEDS: ACETAMINOPHEN 500 MG TABLET 650 MG PO (22:17)
[2025-02-13] VITALS (11 sets, daily range): BP systolic 117–157; BP diastolic 70–91; PULSE 7–85; RESP 15–96; TEMP 36.2–36.7; O2SAT 94–96; BMI 11.0; BMI 12.0
[2025-02-13] MEDS: ACETAMINOPHEN 500 MG TABLET 650 MG PO (04:05)
[2025-02-13 06:19] LABS: Basophils % (Auto) 0 % (0-2.5); Eosinophils # (Auto) 0.1 Thou/mm3 (0.0-0.5); Eosinophils % (Auto) 2 % (0-10); Hematocrit 31.5 % (36.0-46.0); Hemoglobin 10.8 g/dL (12.0-16.0); Immature Granulocytes % (Auto) 0 % (0-0); Immature Granulocytes Auto 0.02 Thou/mm3 (0.00-0.00); Lymphocytes # (Auto) 1.2 Thou/mm3 (1.0-4.8); Lymphocytes % (Auto) 23 % (10-50); Mean Corpuscular HGB Conc 34.3 g/dl (31.0-37.0); Mean Corpuscular Hemoglobin 32.8 pg (25.0-35.0); Mean Corpuscular Volume 96 fL (80-100); Monocytes # (Auto) 0.6 Thou/mm3 (0.0-0.8); Monocytes % (Auto) 12 % (0-12); Neutrophils # (Auto) 3.3 Thou/mm3 (1.8-7.7); Neutrophils % (Auto) 63 % (37-80); Nucleated Red Blood Cell % 0 /100 WBC (0); Platelet Count 159 Thou/mm3 (140-440); RDW Standard Deviation 43.6 fL (36.4-46.3); Red Blood Count 3.29 Miln/mm3 (4.00-5.20); White Blood Count 5.2 Thou/mm3 (3.6-11.0)
[2025-02-13 07:01] LABS: Alanine Aminotransferase 11 U/L (10-49); Albumin, Serum 3.5 gm/dL (3.4-4.8); Albumin/Globulin Ratio 1.8 (1.2-2.2); Alkaline Phosphatase 75 U/L (46-116); Anion Gap 6 (7-16); Aspartate Amino Transferase 13 U/L (0-34); BUN/Creatinine Ratio 18 Ratio (12-20); Bilirubin,Total 0.7 mg/dL (0.3-1.2); Blood Urea Nitrogen 11 mg/dL (9-23); Calcium 8.7 mg/dL (8.3-10.6); Calcium (Corrected) 9.1 mg/dL (8.5-10.1); Carbon Dioxide 26.9 mMol/L (20.0-31.0); Chloride 100 mMol/L (98-107); Creatinine (Component) 0.6 mg/dL (0.6-1.3); Globulin 1.9 gm/dL (2.3-3.5); Glucose 98 mg/dL (74-106); Osmolality,Calculated 265 (275-295); Phosphorous 3.3 mg/dL (2.4-5.1); Potassium 3.8 mMol/L (3.4-5.1); Sodium 133 mMol/L (136-145); Total Protein 5.4 gm/dL (5.7-8.2); eGFR > 60 See Note
[2025-02-13] MEDS: SODIUM CHLORIDE 0.9% 1000 ML 1,000 ML 100 ML IV (08:59)
[2025-02-13] MEDS: PANTOPRAZOLE 20 MG TABLET PO (09:00)
[2025-02-13] MEDS: cefTRIAXone/D5w 1gm IV premix 1 GM/50 ML BAG IV (09:00)
[2025-02-13] MEDS: VALSARTAN 80 MG TABLET PO (09:01)
--- NOTE | 2025-02-13 09:14 | ESDS_ITS ---
Planned Discharge Date 02/13/25 DS: Providers Provider Date of admission: 02/10/25 09:20 Primary care physician: Lawanda Rayo MD Admitting Provider: Lawanda Rayo MD Attending Provider on Admission: Lawanda Rayo MD Consults: 02/10/25 04:08 Consult to Neurology / Tele-Neurology Routine Comment: Consulting Provider: [facility] 02/10/25 07:42 Consult to Cardiology Stat Comment: Consulting Provider: Rogelio Orellana 02/10/25 10:22 Referral Physical Therapy Routine Comment: Physician Instructions: Referral Speech Therapy Routine Comment: 02/12/25 15:22 Referral Discharge Planning Routine Comment: [facility] Attending Provider on DC: Armando Castro MD Discharging Provider: Armando Castro MD DS: Diagnosis Problem List Completed Was Problem List Reviewed/Reconciled?: Yes Hospital Course Hospital Course Hospital course: Patient is a 85-year-old female with past medical history of hypertension, spinal stenosis that presented to the ED with ankle fracture status post open fall after syncopal episode. Patient had experienced a sudden fall at home without any prodromal symptoms such as shortness of breath, palpitations, tunnel vision or dizziness. She denies any chest pain or recent changes in her medications. Imaging showed acute bimalleolar fracture of the right ankle which was splinted. Patient was also found to have a UTI that grew E. coli and was started on antibiotics. Patient was monitored in telemetry during her stay and cardiology was consulted. Workup including echocardiogram did not show any pathology and her syncopal episode was likely contributed to dehydration as well as underlying UTI and orthostatic changes at the time. Cardiology recommended to hold patient's Coreg for the time being. Due to patient's fracture and he inability to w bear weight she will be discharged to acute rehab facility and will need to follow-up with outpatient podiatry for further management of her acute right ankle fracture. Problems addressed during this stay: #Syncope with fall #E.coli UTI #Thrombocytopenia #Ankle fracture #Hyponatremia, chronic #Hypertension #Hx of Spinal stenosis #Insomnia Plan: Patient is safe to be discharged to SNF She can continue taking her previous medications as prescribed except for coreg which she will hold until she sees her last picker in 1-2 weeks Patient to take tylenol 650mg twice a day for pain Patient can take colace 100mg once a day for constipation Patient can take augmentin twice a day for three more days to complete her treatment for UTI Patient should be on dysphagia 2 diet. Patient needs to continue PT and follow up with Faustina Bae for management of her right ankle fracture Thank you for allowing us to care for Ms Camacho during her stay with us at [facility] I discussed patient's care with attending physician, Dr Perri Castro PGY3 Status at Discharge Cognitive/behavioral status at discharge: stable Functional status at discharge: wheelchair bound Overall status at discharge: patient is not back to baseline Time Spent with Patient Time attestation: Total time spent providing and/or coordinating discharge services: Time spent: Greater than 30 minutes Exam Vital Signs Temp Pulse Resp BP Pulse Ox O2 Del Method 97.3 F 73 18 153/77 H 96 Room Air 02/13/25 04:00 02/13/25 09:01 02/13/25 04:00 02/13/25 09:01 02/13/25 04:00 02/13/25 04:00 Narrative Exam GENERAL APPEARANCE: Patient seems to be comfortable, adequately hydrated and nourished. Son and [id number] at bedside HEENT: EOMI, PERRLA NECK: Neck supple, no JVD or bruit CARDIOVASCULAR: Heart regular, no murmurs LUNGS/CHEST: Chest clear to auscultation. No rales, rhonchi, wheezing ABDOMEN: Soft, nontender, nondistended. No masses. Normal bowel sounds. EXTREMITIES: No edema, clubbing or cyanosis. SKIN: Skin exam normal without any rashes MUSCULOSKELETAL: Right ankle wrapped PSYCHIATRIC: Normal mood, affect LYMPHATICS: No lymphadenopathy noted NEUROLOGICAL : No neurological deficits Discharge Plan Plan Patient Disposition: Xfer Skilled Nsg Fac (SNF) Patient condition on transfer: Stable Care Plan Goals: Patient is safe to be discharged to SNF She can continue taking her previous medications as prescribed except for coreg which she will hold until she sees her last picker in 1-2 weeks Patient to take tylenol 650mg twice a day for pain Patient can take colace 100mg once a day for constipation Patient can take augmentin twice a day for three more days to complete her treatment for UTI Patient should be on dysphagia 2 diet. Patient needs to continue PT and follow up with [facility] for manag ement of her right ankle fracture Prescriptions/Referrals Prescriptions/Med Rec: New docusate sodium [Colace] 100 mg capsule 100 mg PO QDAY Qty: 30 0RF acetaminophen 650 mg tablet extended release 650 mg PO Q12H PRN (Reason: pain) 14 Days Qty: 30 0RF amoxicillin-pot clavulanate 875-125 mg tablet 1 tab PO BID 3 Days Qty: 6 0RF Continued omeprazole 20 mg capsule,delayed release(DR/EC) 20 mg PO DAILY spironolactone 25 mg tablet 25 mg PO DAILY trazodone 50 mg tablet 25 mg PO HS PRN (Reason: Insomnia) Patient Comments: Half to whole tab po qhs prn valsartan [Diovan] 160 mg tablet 160 mg PO .PM Metamucil Sugar-Free (aspart) 3.4 gram/5.8 gram powder PO HS PRN (Reason: Constipation) Patient Comments: As needed Held carvedilol 3.125 mg tablet 3.125 mg PO BID Hold Instructions: Resume on 02/24/25. Discontinued acetaminophen [Tylenol Extra Strength] 500 mg tablet 500 mg PO TID PRN (Reason: Pain from OA) Patient Comments: Use it as needed Referrals: Lawanda Rayo MD [Primary Care Provider] - Patient/Caregiver Discharge Instructions Print Language: Armenian Stand Alone Forms: Joana Award Info., Patient Portal Info Letter Discharge Order Discharge Orders: Discharge (Routine); Ordered 02/13/25 Ordered By: Armando Castro Quality Discharge Quality Measures VTE prophylaxis MD Attestestation MD Attestation Patient seen and examined with resident physician Dr. Castro Note reviewed, agree with findings and recommendations. Patient admitted with syncope most likely related to dehydration/UTI. She is going to be discharged to rehab for a right ankle fracture and physical therapy. Plan of care discussed with her son. Patient agreed to go to rehab.
[2025-02-13] MEDS: Milk Of Magnesia Susp 30 ML UDC PO (09:39)
[2025-02-13] MEDS: DOCUSATE SOD 100 MG CAPSULE PO (09:39)
--- NOTE | 2025-02-13 11:33 | ESPR_ITS ---
Documentation for date of: 02/13/25 Subjective Subjective Interval history: Patient seen examined this a.m. No overnight events. Patient doing well. Patient ambulated with physical therapy. Denies any chest pain, shortness of breath, palpitation, dizziness. Patient had a bowel movement last night. Vitals and labs have been reviewed. Rounded with RN. [id number] at bedside. All questions concerns were addressed at bedside. Exam Vital Signs Temp Pulse Resp BP Pulse Ox O2 Del Method 98.0 F 70 18 132/70 H 94 L Room Air 02/13/25 12:09 02/13/25 12:09 02/13/25 12:09 02/13/25 12:09 02/13/25 12:09 02/13/25 12:09 Objective Labs 02/13/25 05:00 02/13/25 05:00 Labs: Laboratory Results - last 24 hr 02/13/25 05:00 WBC 5.2 RBC 3.29 L Hgb 10.8 L Hct 31.5 L MCV 96 MCH 32.8 MCHC 34.3 RDW Std Deviation 43.6 Plt Count 159 D Neut % (Auto) 63 Lymph % (Auto) 23 [place] % (Auto) 12 Eos % (Auto) 2 Baso % (Auto) 0 Neut # (Auto) 3.3 Lymph # (Auto) 1.2 [place] # (Auto) 0.6 Eos # (Auto) 0.1 Baso # (Auto) 0.0 Immature Gran # (Auto) 0.02 H Absolute Nucleated RBC 0.00 Immature Gran % 0 Nucleated RBC % 0 Sodium 133 L Potassium 3.8 Chloride 100 Carbon Dioxide 26.9 Anion Gap 6 L BUN 11 Creatinine 0.6 Estim Creat Clear Calc 74.0 eGFR > 60 BUN/Creatinine Ratio 18 Glucose 98 Calculated Osmolality 265 L Calcium 8.7 Corrected Calcium 9.1 Phosphorus 3.3 Magnesium 2.0 Total Bilirubin 0.7 AST 13 ALT 11 Alkaline Phosphatase 75 Total Protein 5.4 L Albumin 3.5 Globulin 1.9 L Albumin/Globulin Ratio 1.8 Quality Measures Quality Measures VTE prophylaxis Advance care planning discussed with:: patient Assessment & Plan Assessment Current Active Medications: Generic Name Dose Route Start Last Admin Trade Name Freq PRN Reason Stop Dose Admin Acetaminophen 650 mg 02/12/25 20:04 02/13/25 04:05 Acetaminophen 500 Mg Tablet PO 03/14/25 00:11 650 mg Q6HR PRN Administration FEVER > 100.4 OR PAIN Carvedilol 3.125 mg 02/10/25 17:30 02/12/25 17:18 Carvedilol 3.125 Mg Tablet PO 03/12/25 17:29 3.125 mg BIDWM CASSANDRA Administration Docusate Sodium 100 mg 02/12/25 20:11 02/13/25 09:39 Docusate Sod 100 Mg Capsule PO 03/14/25 20:10 100 mg QDAY PRN Administration CONSTIPATION Protocol Sodium Chloride 1,000 mls @ 100 mls/hr 02/10/25 04:15 02/13/25 08:59 Ns IV 03/12/25 04:14 100 mls/hr Q10H CASSANDRA Administration Ceftriaxone Sodium/Dextrose 1 gm in 50 mls @ 100 mls/hr 02/10/25 10:09 02/13/25 09:00 Rocephin/D5w 1gm Iv Premix IV 02/17/25 10:08 100 mls/hr QDAY CASSANDRA Administration Magnesium Hydroxide 30 ml 02/11/25 22:03 02/13/25 09:39 Milk Of Magnesia Susp 30 Ml Udc PO 03/13/25 22:02 30 ml QDAY PRN Administration CONSTIPATION Protocol Ondansetron HCl 4 mg 02/10/25 09:20 02/12/25 12:33 Ondansetron Inj 2 Mg/Ml Inj 2 Ml IV 03/12/25 09:19 4 mg Q6H PRN Administration NAUSEA OR VOMITING Protocol Pantoprazole Sodium 20 mg 02/11/25 09:00 02/13/25 09:00 Pantoprazole 20 Mg Tablet PO 03/13/25 08:59 20 mg QDAY CASSANDRA Administration Trazodone HCl 25 mg 02/11/25 10:04 02/12/25 20:49 Trazodone Hcl 50 Mg Tablet PO 03/13/25 20:59 25 mg HS PRN Administration insomnia Valsartan 80 mg 02/12/25 20:15 02/13/25 09:01 Valsartan 80 Mg Tablet PO 03/14/25 20:14 80 mg QDAY CASSANDRA Administration Plan 85-year-old female with past medical history of hypertension, PVCs on beta- rudolph, and spinal stenosis who presented due to syncopal event and fall at home and was subsequently admitted for further evaluation and cardiology was consulted. #Syncope #Ground-level fall #Acute bimalleolar fracture #History of hypertension #History of frequent PVCs #History of spinal stenosis Assessment: Patient presented with 2 syncopal events. Patient's [place] syncope rule was 0. Patient's syncopal etiology can be due to neurally mediated, possibly vasovagal, versus cardiovascular. Patient does take trazodone to go to sleep however unlikely these is drug- induced. Patient does take several blood pressure medications including Coreg, valsartan, and spironolactone which could with chronotopic effect cause exacerbation of a orthostatic hypotension syncopal event. Other possible causes ruled out that could mimic a syncopal episode include hypoglycemia, electrolyte abnormality, anemia, or hypoxia. Imaging showed CT and CTA head and neck were normal. A chest x-ray, and chest abdomen pelvis CT was also normal. A cervical spine, lumbar spine and thoracic spine CT were also within normal limits. 02/11/2025: No bradycardia arrhythmias noted on the 24-hour telemetry and on EKG no AV blocks, long QT abnormality, or a sick sinus syndrome were noted. Cholesterol is in normal range with TG 69, TC 126, LDL 70, HDL 42. TSH normal at 1.19. A1c normal at 5.2. Echo done showed normal LV size and function. Mild LVH. Estimated EF 60-65%. Grade I diastolic dysfunction. Normal LV size and function. Possible Plata sign. Estimate RVSP mildy elevated at 41 mmHg. Mild TR. Mildly calcified non- coronary cusp with mild AV sclerosis without stenosis. No significant valve stenosis that would be likely to cause a syncopal event. The possibilities of PE with the Plata sign were discussed, as patient Wells criteria score is 0, there is no respiratory compromise, tachypnea, tachycardia, or any other symptoms indicative of a PE. There is a possibility that PE can present as a syncope, but as of now seems less likely. Orthostatics completed today from laying (113/66) to sitting (133/71) were negative. Patient does not look dehydrated or have acute blood loss. However UA was positive for leukocyte esterase and 2+ bacteria, there is a possibility of UTI and dehydration in the setting of infection. Antibiotic was started. Recommendations: -Hold home carvedilol 3.125 mg BID -Monitor BP and restart home valsartan and spironolactone if necessary to maintain BP range -Consider?Holter monitor, Event monitor, or Loop recorder in the outpatient setting -Head-up tilt table test as needed to differentiate b/n neurally mediated syncope vs. orthostatic HTN. -Patient PT cleared -Will DC to SNF -follow with cardiology in the outpatient setting in 2 weeks. -cont valsartan 160mg qd, and aldactone 25mg qd -hold coreg wait till follow with Dr Orellana - - Patient's care was discussed with my attending physician, Dr. Esteban Arcos MD Internal Medicine PGY-3 Attending Provider Attestation/Addendum I have personally seen and examined the patient separately on the above date of service and discussed the plan of care with the resident. I reviewed the resident Dr. Delon Jacobson consultation progress note and agree with the resident findings and plan in the note above and have also edited the documentation to reflect my findings and plan. Patient seen and examined at the bedside. Still has some pain in the right leg but better than before. PT evaluation completed and she needs a short-term rehab and patient will be discharged today to a short-term rehab. Orthostatics were negative. Labs showed cholesterol in the normal range 126, LDL of 70, HDL of 42, TSH of 1.19. A1c is also in the normal range. Echo was performed today which showed normal LV size and function, normal RV size and function. Estimated EF 60 to 65%. Diastolic dysfunction. Possible Plata sign. Elevated RVSP at 41 mmHg. Mild TR. Mildly calcified noncoronary cusp with mild AV sclerosis without stenosis. Overall still appears to be vasovagal but will continue to rule out cardiogenic versus neurogenic syncope. Will continue further workup outpatient for with Holter monitoring and eventually tilt table test if needed. Blood pressure was high mostly secondary to the pain and was restarted on ARB. Coreg held at the present point of time and will restart it at later point of time the blood pressure is elevated. Patient recommended to follow-up with me in the office in the next 1 to 2 weeks Rogelio Orellana M.D. Interventional Cardiology
--- NOTE | 2025-02-13 15:17 | PC.SS ---
Follow up note: Patient has d/c orders for today. SS met with patient and daughter in law. Patient /family preference is [facility]. They accepted and are ready for patient today. SS set up [facility] for 5p.m. Updated family. PASRR complete. Level 2 was completed yesterday
--- NOTE | 2025-02-13 16:28 | PC.NURSE ---
Report given to receiving nurse Monica BALLARD at [facility] over the phone.
[2025-02-13] MEDS: ACETAMINOPHEN 325 MG TABLET 650 MG PO (16:39)
--- NOTE | 2025-02-14 18:45 | PC.CC ---
PT was discharged to [facility], HH referral is cancelled.
== END 2025-02-13 17:11 | disposition skilled nursing facility (03) | DRG 690 ==
LOC: SERX 06:54 → SERHOLD 09:55 → S3SX 15:07
PROVIDERS: Emergency Medicine; Student in an Organized Health Care Education/Training Program; Admitting Provider Internal Medicine; Emergency Provider Emergency Medicine; PCP Internal Medicine; Visit Provider Internal Medicine
DX: N39.0 Urinary tract infection, site not specified (principal); E87.1 Hypo-osmolality and hyponatremia; I10 Essential (primary) hypertension; M35.3 Polymyalgia rheumatica; M48.00 Spinal stenosis, site unspecified; W18.30XA Fall on same level, unspecified, initial encounter; S82.841A Displaced bimalleolar fracture of right lower leg, initial encounter for closed fracture; S09.90XA Unspecified injury of head, initial encounter; Y92.009 Unspecified place in unspecified non-institutional (private) residence as the place of occurrence of the external cause; B96.20 Unspecified Escherichia coli [E. coli] as the cause of diseases classified elsewhere; D69.6 Thrombocytopenia, unspecified; E04.2 Nontoxic multinodular goiter; E86.0 Dehydration; G47.00 Insomnia, unspecified; G89.29 Other chronic pain; I95.1 Orthostatic hypotension; K59.00 Constipation, unspecified; Z96.649 Presence of unspecified artificial hip joint; Z79.899 Other long term (current) drug therapy; Z90.710 Acquired absence of both cervix and uterus; I49.3 Ventricular premature depolarization
CPT/HCPCS: 36415; 36600; 70450; 70496; 70498; 71045; 71250; 72125; 72128; 72131; 73610; 73630; 74176; 80053; 80061; 81001; 82436; 82607; 82746; 82803; 83036; 83605; 83735; 83880; 84100; 84133; 84145; 84300; 84439; 84443; 84484; 85025; 85610; 85652; 85730; 86140; 87040; 87077; 87086; 87186; 87400; 87811; 92610; 93005; 93225; 93306; 96365; 97162; 99285; A4649; J0696; J1643; J2060; J2405; J7030; Q9967; A9270

== ENCOUNTER 2025-03-09 07:04 | Inpatient (IN) | payer MEDICARE, SELFPAY ==
[2025-03-09] VITALS (21 sets, daily range): BP systolic 74–141; BP diastolic 42–98; PULSE 62–124; RESP 12–98; TEMP 36.1–37.1; O2SAT 94–99; BMI 28.4
--- NOTE | 2025-03-09 07:15 | XR_ITS ---
Examination: AP chest single view Technique one AP portable semiupright chest single view Date and time: March 09, 2025 [id number] hours Comparison February 10, 2025 INDICATION: Coughing today, sepsis alert FINDINGS: Suspicious for early left base pneumonia. Normal heart size Ectatic thoracic aorta IMPRESSION: Suspicious for early left base pneumonia
--- NOTE | 2025-03-09 07:19 | PD.EDADULT ---
ED General RME/HPI General Chief complaint: Altered Mental Status Stated complaint: AMS Time Seen by Provider: 03/09/25 07:06 Arrival date/time: 03/09/25 07:04 RME / HPI RME / HPI narrative: This is 85 yo female with a history of spinal stenosis, hypertension, and previous surgeries including hysterectomy and gallbladder removal,rec hx of Rt ankle fracture post splinting and fracture repair for tibia post cast placement presented to ED on 03/09/25 with AMS and left lower extremity pain with decreased mobility x 1 day ago. Patient is baseline AO x 3. Nursing facility reported that since 3 AM clothes model patient was found confused and was having racing of thoughts and reported to have pain in her left lower extremity mainly in the hip. Patient's family was at the bedside they reported that patient has been having this left hip pain due to chronic history of spinal stenosis but not to acute exacerbation like today. Denied any reporting of fevers chills, nausea, vomiting, abdominal pain reported at nursing facility. No falls or loss of consciousness was reported. Patient does have a significant history of UTI and urine retention due to cystocele as well as history of drinking moderate amount of water attributed to chronic hyponatremia. She was given a course of antibiotic on the previous admission sensitive to the urine culture sensitivity. Patient underwent surgery for left lower extremity on February 23, 2025 and has been getting physical therapy at the nursing facility. Patient is on aspirin 81 mg once a day for DVT prophylaxis since fracture repair. Patient was recently started on gabapentin 100 mg 3 times daily since yesterday. She was also started on Ambien 5 mg at night 2 days ago. Buspirone 5 mg twice daily was added a week ago. She has been taking trazodone 100 mg as well. Patient is allergic to opioid directives causes nausea and vomiting. Fingerstick blood glucose was 120 mg/dL. PMH: Spinal stenosis, Hypertension, Tendon rupture in foot, Polymyalgia rheumatica (30 years ago), Urinary incontinence, osteopenia, insomnia PSH: Recent surgery for tibia fracture post fall in February 2025,acute bimalleolar fracture of the right ankle which was splinted in january 2025 bone grafting and dental implant placement in the jaw (recent), Gallbladder removal with liver resection at [facility] (approximately 10 years after hysterectomy), Attempted gallbladder removal resulting in large incision, gallbladder found embedded in liver (approximately 10 years after hysterectomy), Hysterectomy with bilateral oophorectomy at age 51, Tonsillectomy at age 10 FH:BrothersOpen-heart surgery, history of cancer, Heart stent SH: She was in [facility] for acute rehab. Lives in an apartment under the same roof as son and [id number], but in a separate unit, Uses a [employer] machine for cycling in the kitchen; limited walking due to foot issues Allergies: Opioids causes nausea and vomiting Home meds: Ambien 5 mg at bedtime, aspirin 81 mg once daily, BuSpar 5 mg twice daily, docusate sodium 100 mg 1 tablet, Dulcolax suppository as needed, Fleet enema as needed, fluticasone inhaler, gabapentin 100 mg 3 times daily, melatonin 5 mg once as needed for insomnia, Metamucil 1 packet as needed for constipation, milk of magnesia as needed for constipation, naproxen 250 mg once every 8 hourly as needed, omeprazole 20 mg, spironolactone 25 mg, trazodone 100 mg hs, valsartan 160 mg, vitamin D3 Differential diagnoses include acute encephalopathy related to polypharmacy/medication related, possible pneumonia, UTI, radiculopathy related to spinal stenosis, possible hip dislocation, insomnia,, electrolyte derangement We ordered CT brain without contrast, basic labs with sepsis protocol including lactic acid and procalcitonin, troponin I, EKG left hip x-ray and Doppler lower extremity left side as well as chest x-ray. Patient was given IV Toradol 30 mg x 1, lidocaine patch and Tylenol 650 mg x 1. Chest x-ray was significant for left base pneumonia. EKG showed sinus tachycardia with QTc 403. No axis deviation was seen.Hip pelvic x-ray showed left hip bipolar hemiarthroplasty with satisfactory alignment. 9:13 CBC showed white count within normal limits, hemoglobin 12.9. Platelet count 217. INR 1.0. VBG's were unremarkable. Urinalysis was negative. U tox was negative. CMP is pending. 9:36 chemistry panel was significant for sodium 118, chloride 86, potassium 4.2. Kidney functions unremarkable with BUN 16 and creatinine 0.8. Blood glucose 112. Lactic acid 1.3. Magnesium 1.7. Liver enzymes unremarkable. Ammonia less than 10. Elevated troponin/Troponin I was 0.194. Procalcitonin was 0.07. UA was showing trace ketones with rare bacteria. U tox was negative. Sharples Machine Operator, Dr Rayo was contacted and she recommended to start hypertonic saline at 40 cc/h, continue sodium checks Q2 hourly, neuro checks q 4h and recommended close observation in ICU. ICU team, Dr. Welch resident physician was contacted and patient's history, ED course, labs and imaging, treatment was reviewed and informed that Dr Rayo/her PCP wants the patient to be closely monitored in ICU for sodium checks given critical hyponatremia. We ordered Rocephin 1 g x 1, azithromycin 500 mg x 1 to cover for community-acquired pneumonia. Hypertonic saline was initiated at 40 cc/h. Will continue with strict KRISTINE's, sodium checks, aspiration precaution and seizure precaution. Goal of sodium correction not more than 6 to 8 mEq in first [address] brain without contrast to rule out bleeding. Most likely, patient was found to have acute encephalopathy related to hyponatremia concomitant with possible polypharmacy related to medications and community-acquired pneumonia. No acute fractures were seen on the left hip and most likely pain is attributed to radiculopathy related to spinal stenosis.ICU team accepted the pt. Patient was admitted to ICU for further management. MD complaint: Altered mental status and left hip pain Onset (ago): day(s) (1) Location: lower extremity (Left) Radiation: back Severity: severe Severity scale (1-10): 10 Quality: aching Consistency: constant Relieving factors: none Associated symptoms: confusion Related Data Home Medications ?Medication ?Instructions ?Recorded ?Confirmed carvedilol 3.125 mg tablet 3.125 mg PO BID Htn 02/10/25 03/09/25 omeprazole 20 mg capsule,delayed 20 mg PO DAILY Gastritis 02/10/25 03/09/25 release psyllium husk 3.4 gram/5.8 gram 1 ea PO HS PRN Constipation 02/10/25 03/09/25 oral powder (Metamucil Sugar-Free (aspartame)) spironolactone 25 mg tablet 25 mg PO DAILY Htn 02/10/25 03/09/25 trazodone 50 mg tablet 25 mg PO HS PRN Insomnia 02/10/25 03/09/25 valsartan 160 mg tablet (Diovan) 160 mg PO .PM Htn 02/10/25 03/09/25 acetaminophen 500 mg tablet 500 mg PO QID PRN pain 03/09/25 03/09/25 (Acetaminophen Extra Strength) aspirin 81 mg chewable tablet 81 mg PO QDAY 03/09/25 03/09/25 bisacodyl 10 mg rectal suppository 10 mg NV QDAY PRN constipation 03/09/25 03/09/25 (Dulcolax (bisacodyl)) buspirone 5 mg tablet 5 mg PO BID 03/09/25 03/09/25 cholecalciferol (vitamin D3) 125 5,000 unit PO BID 03/09/25 03/09/25 mcg (5,000 unit) capsule fluticasone furoate 27.5 2 spray intranasal HS 03/09/25 03/09/25 mcg/actuation nasal spray,suspension gabapentin 100 mg capsule 100 mg PO TID 03/09/25 03/09/25 magnesium hydroxide 400 mg/5 mL 1,200 mg PO Q3D PRN constipation 03/09/25 03/09/25 oral suspension (Milk of Magnesia) melatonin 5 mg capsule 5 mg PO Q24H PRN sleep 03/09/25 03/09/25 naproxen 250 mg tablet 250 mg PO TID 03/09/25 03/09/25 sodium phosphates 19 gram-7 118 ml NV QDAY PRN constipation 03/09/25 03/09/25 gram/118 mL enema (Enema) zolpidem 5 mg tablet (Ambien) 5 mg PO HS PRN SLEEP 03/09/25 03/09/25 Previous Rx's ?Medication ?Instructions ?Recorded docusate sodium 100 mg capsule 100 mg PO QDAY #30 caps 02/13/25 (Colace) Allergies Allergy/AdvReac Type Severity Reaction Status Date / Time Opioids - Morphine Analogues Allergy Severe Nausea and Verified 03/09/25 08:46 vomiting Review of Systems Review of Systems ROS Unobtainable: unobtainable due to mental status ED Exam Narrative Physical exam: GENERAL APPEARANCE: Patient appears confused AO x 2 to her name and time but not to place. HEENT: NC, AT. Dry mucous membrane. EOMI, clear conjunctiva, oropharynx clear. NECK: Supple without lymphadenopathy. No stiffness or restricted ROM. HEART: Sinus tachycardia with regular rhythm, normal S1/S2, no m/r/g LUNGS: CTAB, moving air well. No crackles or wheezes are heard. ABDOMEN: Soft, mild lower pelvic tenderness, nondistended with good bowel sounds heard. BACK: No CVAT, no obvious deformity. EXTREMITIES: Left lower extremity covered with plaster cast. Pain in left lower hip with dec mobility NEUROLOGICAL: Grossly nonfocal. Alert and oriented, left lower extremity covered with plaster with pain and dec mob in left hip. CN not formally tested but appear grossly intact. Skin: Warm and dry without any rash. Psych: Unable to assess due to altered mentation Course Course Course Narrative: This is 85 yo female with a history of spinal stenosis, hypertension, and previous surgeries including hysterectomy and gallbladder removal,rec hx of Rt ankle fracture post splinting and fracture repair for tibia post cast placement presented to ED on 03/09/25 with AMS and left lower extremity pain with decreased mobility x 1 day ago. Patient is baseline AO x 3. Nursing facility reported that since 3 AM clothes model patient was found confused and was having racing of thoughts and reported to have pain in her left lower extremity mainly in the hip. Patient's family was at the bedside they reported that patient has been having this left hip pain due to chronic history of spinal stenosis but not to acute exacerbation like today. Denied any reporting of fevers chills, nausea, vomiting, abdominal pain reported at nursing facility. No falls or loss of consciousness was reported. Patient does have a significant history of UTI and urine retention due to cystocele as well as history of drinking moderate amount of water attributed to chronic hyponatremia. She was given a course of antibiotic on the previous admission sensitive to the urine culture sensitivity. Patient underwent surgery for left lower extremity on February 23, 2025 and has been getting physical therapy at the nursing facility. Patient is on aspirin 81 mg once a day for DVT prophylaxis since fracture repair. Patient was recently started on gabapentin 100 mg 3 times daily since yesterday. She was also started on Ambien 5 mg at night 2 days ago. Buspirone 5 mg twice daily was added a week ago. She has been taking trazodone 100 mg as well. Patient is allergic to opioid directives causes nausea and vomiting. Fingerstick blood glucose was 120 mg/dL. Differential diagnoses include acute encephalopathy related to polypharmacy/medication related, possible pneumonia, UTI, radiculopathy related to spinal stenosis, possible hip dislocation, insomnia,, electrolyte derangement We ordered CT brain without contrast, basic labs with sepsis protocol including lactic acid and procalcitonin, troponin I, EKG left hip x-ray and Doppler lower extremity left side as well as chest x-ray. Patient was given IV Toradol 30 mg x 1, lidocaine patch and Tylenol 650 mg x 1. Chest x-ray was significant for left base pneumonia. EKG showed sinus tachycardia with QTc 403. No axis deviation was seen.Hip pelvic x-ray showed left hip bipolar hemiarthroplasty with satisfactory alignment. 9:13 CBC showed white count within normal limits, hemoglobin 12.9. Platelet count 217. INR 1.0. VBG's were unremarkable. Urinalysis was negative. U tox was negative. CMP is pending. 9:36 chemistry panel was significant for sodium 118, chloride 86, potassium 4.2. Kidney functions unremarkable with BUN 16 and creatinine 0.8. Blood glucose 112. Lactic acid 1.3. Magnesium 1.7. Liver enzymes unremarkable. Ammonia less than 10. Elevated troponin/Troponin I was 0.194. Procalcitonin was 0.07. UA was showing trace ketones with rare bacteria. U tox was negative. Sharples Machine Operator, Dr Rayo was contacted and she recommended to start hypertonic saline at 40 cc/h, continue sodium checks Q2 hourly and recommended close observation in ICU. ICU team, Dr. Welch resident physician was contacted and patient's history, ED course, labs and imaging, treatment was reviewed and informed that Dr Rayo/her PCP wants the patient to be closely monitored in ICU for sodium checks given critical hyponatremia. We ordered Rocephin 1 g x 1, azithromycin 500 mg x 1 to cover for community-acquired pneumonia. Hypertonic saline was initiated at 40 cc/h. Will continue with strict KRISTINE's, sodium checks, aspiration precaution and seizure precaution. Goal of sodium correction not more than 6 to 8 mEq in first [address] brain was negative Most likely, patient was found to have acute encephalopathy related to hyponatremia concomitant with possible polypharmacy related to medications and community-acquired pneumonia. No acute fractures were seen on the left hip and most likely pain is attributed to radiculopathy related to spinal stenosis. Patient was admitted to ICU for further management. Quality Measures none Orders Category Date Time Status Aspiration precautions ONCE Care 03/09/25 07:38 Active Bedside Blood Glucose NOW Care 03/09/25 07:15 Active COVID-19 Screening Questionnaire NOW Care 03/09/25 09:28 Active Marriage And Family Social Worker Q4H START 00 Care 03/09/25 07:15 Active Decision to Admit X1 Care 03/09/25 09:28 Completed EKG (ED ONLY) *Do not use* NOW Care 03/09/25 07:33 Completed Insert IV NOW Care 03/09/25 07:15 Active Neuro Check Q4H START 00 Care 03/09/25 09:18 Active Nurse Swallow Screen X1 Care 03/09/25 07:38 Active Strict Intake and Output Routine Care 03/09/25 07:[address] head/brain wo con Stat Exams 03/09/25 07:22 Completed EKG (ED Only) Stat Exams 03/09/25 07:33 Draft US venous doppler LE LT Stat Exams 03/09/25 08:31 Completed XR chest 1V SEPSIS PROTOCOL Stat Exams 03/09/25 07:15 Completed XR hip LT w pelvis 2-3V Stat Exams 03/09/25 07:58 Completed Ammonia Stat Lab 03/09/25 08:25 Completed Blood Culture (Lab) Stat Lab 03/09/25 08:25 Received CBC Stat Lab 03/09/25 08:25 Completed Comprehensive Metabolic Panel Stat Lab 03/09/25 08:25 Completed Drug Screen,Urine Stat Lab 03/09/25 08:32 Completed Electrolytes, Urine Random Stat Lab 03/09/25 08:38 Completed Lactate (Lactic Acid) Stat Lab 03/09/25 08:25 Completed Mag [Magnesium] Stat Lab 03/09/25 08:25 Completed Partial Thromboplastin Time Stat Lab 03/09/25 08:25 Completed Phosphorous Stat Lab 03/09/25 08:25 Completed Procalcitonin Stat Lab 03/09/25 08:25 Completed Prothrombin Time with INR Stat Lab 03/09/25 08:25 Completed Troponin I Q6H Lab 03/09/25 20:00 Ordered Troponin I Stat Lab 03/09/25 08:25 Completed Urinalysis Stat Lab 03/09/25 08:32 Completed Urine Culture Stat Lab 03/09/25 08:32 Received Venous Blood Gas Stat Lab 03/09/25 08:25 Completed Acetaminophen Tab [Tylenol Tab] Med 03/09/25 07:38 Discontinued 650 mg PO X1 ONE Azithromycin Inj [Zithromax Inj] 500 mg Med 03/09/25 09:22 Discontinued Sodium Chloride 0.9% 250 ml [Ns] 250 ml IV X1 Ketorolac Inj [Toradol Inj] Med 03/09/25 08:23 Discontinued 30 mg IVP X1 ONE Lidocaine 5% Patch Med 03/09/25 07:34 Discontinued 1 patch TOP X1 ONE Magnesium Sulfate 2 GM Ivpb [Magnesium Sulfate Ivpb] Med 03/09/25 09:31 Discontinued 2 gm in 50 ml IV X1 SODIUM CHLORIDE 3%(Hypertonic) [Hypertonic Saline 3%] Med 03/09/25 09:25 Active 500 ml Pre-Mixed [Pre-mixed Bag] 1 bag IV X1 cefTRIAXone/D5w 1gm IV premix [Rocephin/D5w 1gm IV Med 03/09/25 09:21 Discontinued premix] 1 gm in 50 ml IV X1 Oxygen Delivery NOW RT 03/09/25 07:15 Active Vital Signs Vital signs: Vital Signs Temperature 98.7 F 03/09/25 07:06 Pulse Rate 99 03/09/25 07:06 Respiratory Rate 18 03/09/25 07:06 Blood Pressure 140/83 H 03/09/25 07:06 Pulse Oximetry (%) 96 03/09/25 07:06 Oxygen Delivery Method Room Air 03/09/25 07:06 Discharge Plan Plan Patient Disposition: Admit Acute Care w/in Hospital Problem List Clinical Impression: Altered mental status, Acute pain of left hip, Acute hyponatremia MDM Narrative MDM hospital course (for use when minimal MDM required): This is 85 yo female with a history of spinal stenosis, hypertension, and previous surgeries including hysterectomy and gallbladder removal,rec hx of Rt ankle fracture post splinting and fracture repair for tibia post cast placement presented to ED on 03/09/25 with AMS and left lower extremity pain with decreased mobility x 1 day ago. Patient is baseline AO x 3. Nursing facility reported that since 3 AM clothes model patient was found confused and was having racing of thoughts and reported to have pain in her left lower extremity mainly in the hip. Patient's family was at the bedside they reported that patient has been having this left hip pain due to chronic history of spinal stenosis but not to acute exacerbation like today. Denied any reporting of fevers chills, nausea, vomiting, abdominal pain reported at nursing facility. No falls or loss of consciousness was reported. Patient does have a significant history of UTI and urine retention due to cystocele as well as history of drinking moderate amount of water attributed to chronic hyponatremia. She was given a course of antibiotic on the previous admission sensitive to the urine culture sensitivity. Patient underwent surgery for left lower extremity on February 23, 2025 and has been getting physical therapy at the nursing facility. Patient is on aspirin 81 mg once a day for DVT prophylaxis since fracture repair. Patient was recently started on gabapentin 100 mg 3 times daily since yesterday. She was also started on Ambien 5 mg at night 2 days ago. Buspirone 5 mg twice daily was added a week ago. She has been taking trazodone 100 mg as well. Patient is allergic to opioid directives causes nausea and vomiting. Fingerstick blood glucose was 120 mg/dL. Differential diagnoses include acute encephalopathy related to polypharmacy/medication related, possible pneumonia, UTI, radiculopathy related to spinal stenosis, possible hip dislocation, insomnia,, electrolyte derangement We ordered CT brain without contrast, basic labs with sepsis protocol including lactic acid and procalcitonin, troponin I, EKG left hip x-ray and Doppler lower extremity left side as well as chest x-ray. Patient was given IV Toradol 30 mg x 1, lidocaine patch and Tylenol 650 mg x 1. Chest x-ray was significant for left base pneumonia. EKG showed sinus tachycardia with QTc 403. No axis deviation was seen.Hip pelvic x-ray showed left hip bipolar hemiarthroplasty with satisfactory alignment. 9:13 CBC showed white count within normal limits, hemoglobin 12.9. Platelet count 217. INR 1.0. VBG's were unremarkable. Urinalysis was negative. U tox was negative. CMP is pending. 9:36 chemistry panel was significant for sodium 118, chloride 86, potassium 4.2. Kidney functions unremarkable with BUN 16 and creatinine 0.8. Blood glucose 112. Lactic acid 1.3. Magnesium 1.7. Liver enzymes unremarkable. Ammonia less than 10. Elevated troponin/Troponin I was 0.194. Procalcitonin was 0.07. UA was showing trace ketones with rare bacteria. U tox was negative. Sharples Machine Operator, Dr Rayo was contacted and she recommended to start hypertonic saline at 40 cc/h, continue sodium checks Q2 hourly and recommended close observation in ICU. ICU team, Dr. Welch resident physician was contacted and patient's history, ED course, labs and imaging, treatment was reviewed and informed that Dr Rayo/her PCP wants the patient to be closely monitored in ICU for sodium checks given critical hyponatremia. We ordered Rocephin 1 g x 1, azithromycin 500 mg x 1 to cover for community-acquired pneumonia. Hypertonic saline was initiated at 40 cc/h. Will continue with strict KRISTINE's, sodium checks, aspiration precaution and seizure precaution. Goal of sodium correction not more than 6 to 8 mEq in first [address] brain without contrast to rule out bleeding. Most likely, patient was found to have acute encephalopathy related to hyponatremia concomitant with possible polypharmacy related to medications and community-acquired pneumonia. No acute fractures were seen on the left hip and most likely pain is attributed to radiculopathy related to spinal stenosis.ICU team accepted the pt. Patient was admitted to ICU for further management. Labs/Rad/Tests considered, not ordered Describe: CBC showed white count within normal limits, hemoglobin 12.9. Platelet count 217. INR 1.0. VBG's were unremarkable. Urinalysis was negative. U tox was negative. EKG Interpretation EKG #1: EKG Interpretation: EKG showed sinus tachycardia with QTc 403. No axis deviation was seen. Medication Administration(s) Medication Administration History Acetaminophen (Acetaminophen 325 Mg Tablet) 650 mg PO Q4HR PRN PRN Reason: Pain 1-3 Stop: 04/08/25 11:26 Last Admin: 03/09/25 11:38 Dose: 650 mg Documented By: LUCAS Aspirin (Aspirin Ec 81 Mg Tabec) 81 mg PO QDAY [facility] Stop: 04/09/25 08:59 Heparin Sodium (Porcine) (Heparin Sod Inj 5000 Unit/Ml Vial) 5,000 unit SC Q8HR [facility] Stop: 03/23/25 13:59 Last Admin: 03/09/25 13:41 Dose: 5,000 unit Documented By: LUCAS Co-signed By: Sodium Chloride 500 ml/ IV (Miscellaneous Supplies) 500 mls @ 40 mls/hr IV X1 ONE Stop: 03/09/25 21:54 Last Infusion: 03/09/25 13:34 Dose: 40 mls/hr Documented By: Infusion: 03/09/25 13:23 Dose: 0 mls/hr Documented By: Admin: 03/09/25 10:31 Dose: 40 mls/hr Documented By: GM Ondansetron HCl (Ondansetron Inj 2 Mg/Ml Inj 2 Ml) 4 mg IV Q6H PRN; Protocol PRN Reason: NAUSEA OR VOMITING Stop: 04/08/25 10:27 Sennosides (Senna Tablet) 1 tab PO QDAY CASSANDRA; Protocol Stop: 04/08/25 10:29 Last Admin: 03/09/25 10:50 Dose: 1 tab Documented By: GM Discontinued Medications Acetaminophen (Acetaminophen 325 Mg Tablet) 650 mg PO X1 ONE Stop: 03/09/25 07:39 Last Admin: 03/09/25 08:04 Dose: 650 mg Documented By: GM Aspirin (Aspirin Ec 81 Mg Tabec) 81 mg PO BID [facility] Stop: 04/08/25 20:59 Ceftriaxone Sodium/Dextrose (Rocephin/D5w 1gm Iv Premix) 1 gm in 50 mls @ 100 mls/hr IV X1 ONE Stop: 03/09/25 09:50 Last Infusion: 03/09/25 10:06 Dose: Infused Documented By: Admin: 03/09/25 09:36 Dose: 100 mls/hr Documented By: Azithromycin 500 mg/ Sodium (Chloride) 250 mls @ 250 mls/hr IV X1 ONE Stop: 03/09/25 10:21 Last Infusion: 03/09/25 11:11 Dose: Infused Documented By: Admin: 03/09/25 10:10 Dose: 250 mls/hr Documented By: Magnesium Sulfate (Magnesium Sulfate Ivpb) 2 gm in 50 mls @ 25 mls/hr IV X1 ONE Stop: 03/09/25 11:30 Last Admin: 03/09/25 11:11 Dose: 25 mls/hr Documented By: Sodium Chloride (Ns) 1,000 mls @ 100 mls/hr IV .Q10H [facility] Stop: 04/08/25 10:39 Last Infusion: 03/09/25 13:23 Dose: 0 mls/hr Documented By: Admin: 03/09/25 11:34 Dose: 100 mls/hr Documented By: LUCAS Sodium Chloride 100 ml/ IV (Miscellaneous Supplies) 100 mls @ 600 mls/hr IV X1 ONE Stop: 03/09/25 13:24 Last Infusion: 03/09/25 13:34 Dose: Infused Documented By: Admin: 03/09/25 13:23 Dose: 600 mls/hr Documented By: Ketorolac Tromethamine (Ketorolac Inj 30 Mg/Ml Vial) 30 mg IVP X1 ONE Stop: 03/09/25 08:24 Last Admin: 03/09/25 08:37 Dose: 30 mg Documented By: MARYBETH Lidocaine (Lidocaine 5% 1 Patch) 1 patch TOP X1 ONE Stop: 03/09/25 07:35 Last Admin: 03/09/25 08:05 Dose: 1 patch Documented By: MARYBETH Diagnosis Diagnoses ruled out and/or further discussions: Most likely, patient was found to have acute encephalopathy related to hyponatremia concomitant with possible polypharmacy related to medications and community-acquired pneumonia. No acute fractures were seen on the left hip and most likely pain is attributed to radiculopathy related to spinal stenosis.
--- NOTE | 2025-03-09 07:22 | XR_ITS ---
Examination: CT brain head without contrast. 2-D sagittal coronal reconstructions Date and time of exam:March 09, 2025 0905 hours INDICATIONS: Onset altered mental status today CTDI: vol (mGy):49 DLP: (mGycm):942 Technique: Multiple CT axial sections of the brain have been obtained, 5 mm slice thickness. Contrast has not been administered. 2-D sagittal, coronal reconstructions have been obtained Low dose protocols were performed. One or more of the following dose reduction techniques were used; automated exposure control, adjustment of the mA and/or KV according to patient size, use of iterative reconstruction technique. Findings: No significant ventricular enlargement. Intra-axial or extra-axial hemorrhage density is not seen. No mass effect or midline shift Basal cisterns are not remarkable. Fourth ventricle is midline. Cranial vault intact. Impression: Negative for acute hemorrhage, mass effect or midline shift Advise clinical correlation follow-up accordingly
--- NOTE | 2025-03-09 07:33 | EKG_ITS ---
[facility] Test Date: 2025-03-09 Pat Name: TED PATRICIO Department: Room: - Gender: Female [employer]: : 1940 Requested By: Scott Kohler Order Number: [id number] Reading MD: Scott Kohler Measurements Intervals [place] Rate: 107 P: 76 [place]: 163 QRS: -3 QRSD: 102 T: 44 QT: 340 QTc: 455 Interpretive Statements SINUS TACHYCARDIA SEPTAL MYOCARDIAL INFARCTION , OF INDETERMINATE AGE [40+ ms Q WAVE IN V1/V2] Compared to ECG 02/10/2025 05:55:19 Sinus rhythm no longer present Left ventricular hypertrophy no longer present ST (T wave) deviation no longer present Myocardial infarct finding still present /store/S0/[id number]/[id number].pdf
--- NOTE | 2025-03-09 07:58 | XR_ITS ---
Examination:Left hip AP, lateral, AP pelvis 3 views Technique: Hip AP lateral, AP pelvis, 3 views Exam date and time:March 09, 2025 0807 hours INDICATIONS: Left hip injury. FINDINGS: Left hip bipolar hemiarthroplasty. Satisfactory alignment. No fracture Moderate narrowing right hip Bones of the pelvis right hip intact IMPRESSION: Left hip bipolar hemiarthroplasty with satisfactory alignment.
[2025-03-09] MEDS: ACETAMINOPHEN 325 MG TABLET 650 MG PO ×2 (08:04→11:38)
[2025-03-09] MEDS: LIDOCAINE 5% 1 PATCH TOP (08:05)
--- NOTE | 2025-03-09 08:31 | XR_ITS ---
Examination: Duplex scan of the lower extremity, unilateral left complete Date and time of exam: March 09, 2025 0924 hours INDICATIONS: Left hip and leg pain beginning 2 days ago Technique: Duplex scan of the extremity veins using B-mode/grayscale imaging and Doppler spectral analysis and color flow Attention is directed to internal echogenicity, compression and augmentation involving these veins, color flow assessment, spectral analysis Findings: Major deep venous structures in the extremity demonstrate normal course and caliber. There is no evidence of deep vein thrombosis. Normal color flow and spectral analysis Impression: Negative for DVT..
[2025-03-09] MEDS: KETOROLAC INJ 30 MG/ML VIAL IVP ×2 (08:37→19:39)
[2025-03-09 08:39] LABS: Lactate (Lactic Acid) 1.3 mMol/L (0.4-2.0)
[2025-03-09 08:40] LABS: Base Excess, Venous 1 (-3-3); O2 Saturation, Venous 42 % (96-97); PCO2, Venous 40 mmHg (36-56); PO2, Venous 23 mmHg (15-58); pH, Venous 7.42 (7.33-7.66)
[2025-03-09 08:40] LABS: Collection Type, Urine Clean Catch
[2025-03-09 08:49] LABS: Basophils % (Auto) 0 % (0-2.5); Eosinophils # (Auto) 0.1 Thou/mm3 (0.0-0.5); Eosinophils % (Auto) 1 % (0-10); Hemoglobin 12.9 g/dL (12.0-16.0); Immature Granulocytes % (Auto) 1 % (0-0); Immature Granulocytes Auto 0.05 Thou/mm3 (0.00-0.00); Lymphocytes % (Auto) 10 % (10-50); Mean Corpuscular HGB Conc 37.9 g/dl (31.0-37.0); Mean Corpuscular Hemoglobin 33.4 pg (25.0-35.0); Mean Corpuscular Volume 88 fL (80-100); Monocytes # (Auto) 0.8 Thou/mm3 (0.0-0.8); Monocytes % (Auto) 8 % (0-12); Neutrophils # (Auto) 8.2 Thou/mm3 (1.8-7.7); Neutrophils % (Auto) 80 % (37-80); Nucleated Red Blood Cell % 0 /100 WBC (0); Platelet Count 217 Thou/mm3 (140-440); RDW Standard Deviation 37.7 fL (36.4-46.3); Red Blood Count 3.86 Miln/mm3 (4.00-5.20); White Blood Count 10.2 Thou/mm3 (3.6-11.0)
[2025-03-09 08:56] LABS: Partial Thromboplastin Time 26.8 Seconds (22.0-36.0); Prothrombin Time 11.2 Seconds (9.0-12.2)
[2025-03-09 09:00] LABS: Amphetamine/Methamp Scrn,U Negative (Negative); Barbiturate Screen,Urine Negative (Negative); Benzodiazepines Screen,Urine Negative (Negative); Benzoylecgonine Screen, Ur Negative (Negative); Fentanyl Screen,Urine Negative (Negative); Opiate Screen,Urine Negative (Negative); THC Screen,Urine Negative (Negative)
[2025-03-09 09:11] LABS: Bacteria,Urine Rare; Bilirubin,Urine Negative (Negative); Blood,Urine Negative (Negative); Clarity,Urine Hazy (Clear/Hazy); Color,Urine Lt-Yellow (Lt Yel-Yel); Glucose, Urine Negative (Negative); Hyaline Casts,Urine < 1 /hpf (0-1); Ketones,Urine Trace (Negative); Leukocyte Esterase,Urine Negative (Negative); Nitrite,Urine Negative (Negative); PH,Urine 5.5 (5.0-7.0); Protein,Urine Negative (Neg - Trace); RBC,Urine 1 /hpf (0-3); Specific Gravity,Urine 1.013 (1.001-1.035); Squamous Epithelial Cell,Urine 3 /hpf (0-5); Urobilinogen,Urine Negative mg/dL (0.0-1.0); WBC,Urine 5 /hpf (0-5)
[2025-03-09 09:12] LABS: Alanine Aminotransferase 16 U/L (10-49); Albumin, Serum 4.2 gm/dL (3.4-4.8); Albumin/Globulin Ratio 1.8 (1.2-2.2); Alkaline Phosphatase 135 U/L (46-116); Ammonia < 10 uMol/L (11-32); Anion Gap 7 (7-16); Aspartate Amino Transferase 22 U/L (0-34); BUN/Creatinine Ratio 20 Ratio (12-20); Bilirubin,Total 1.2 mg/dL (0.3-1.2); Blood Urea Nitrogen 16 mg/dL (9-23); Carbon Dioxide 24.7 mMol/L (20.0-31.0); Chloride 86 mMol/L (98-107); Creatinine (Component) 0.8 mg/dL (0.6-1.3); Estimated Creatinine Clearance 51.9 mL/min (>60); Globulin 2.3 gm/dL (2.3-3.5); Glucose 112 mg/dL (74-106); Magnesium 1.7 mg/dL (1.6-2.6); Osmolality,Calculated 240 (275-295); Phosphorous 2.7 mg/dL (2.4-5.1); Potassium 4.2 mMol/L (3.4-5.1); Procalcitonin 0.07 ng/ml (0.0-0.49); Total Protein 6.5 gm/dL (5.7-8.2); eGFR > 60 See Note
[2025-03-09 09:13] LABS: Sodium 118 mMol/L (136-145)
[2025-03-09 09:14] LABS: Troponin I 0.194 ng/mL (0.0-0.045)
[2025-03-09] MEDS: cefTRIAXone/D5w 1gm IV premix 1 GM/50 ML BAG IV (09:36)
[2025-03-09 09:43] LABS: Chloride,Urine Random 38.5 mMol/L (55.0-125.0); Potassium,Urine Random 36 mMol/L (12-62); Sodium,Urine Random 29.6 mMol/L (20.0-110.0)
[2025-03-09] MEDS: AZITHROMYCIN INJ 500 MG in SODIUM CHLORIDE 0.9% 250 ML 250 ML 250 MG IV (10:10)
[2025-03-09] MEDS: SODIUM CHLORIDE 3%(Hypertonic) 500 ML in PRE-MIXED 1 BAG 40 ML IV (10:31)
--- NOTE | 2025-03-09 10:46 | ESHP_ITS ---
<Statement entered by Reyes Tinsley MD - 03/10/25 08:02> TOTAL CC TIME: 45 MIN I saw and evaluated the patient. I reviewed the resident?s note and agree with findings and plan as documented in the resident?s note. Upon my evaluation, this patient had a high probability of imminent or life- threatening deterioration due to severe symptomatic hyponatremia which required my direct attention, intervention, and personal management. This time is exclusive of time spent on procedures, which are documented separately if performed. Pt seen and examine in ED bed 7. Daughter in law at bedside. d/w Dr. Rayo Suspect multifactorial - has baseline SIADH - and w/ trazadone this is suspected to have exacerbated the hyponatremia She has chronic radiculopathic pain from S.stenosis and was recently started on Gabapentin, which may also be contributing to her confusion. She was initially started on 3% HTS 40ml/hr - NS was also started due to signs of dehydration Na+ dropped - and NS stopped 3% HTS continued Repeat Na+ higher then expected and UO increased - therefore DDAVP started and hyptonic IVFs. Documentation for date of: 03/09/25 HPI History of Present Illness Chief complaint: acute encephalopathy History of present illness: Patient is an 85 year old female with past medical history of hypertension, spinal stenosis, polymyalgia rheumatica (30 years ago), right tibia and ankle fracture repair (February 23), who presents from rehab for acute encephalopathy. Per family at bedside, patient was at her normal baseline mentation sharp as a tack until last night, when staff found her confused and complaining of left hip pain. Family were concerned and so patient was brought to the ER. Per nursing staff, patient's last sodium result at the facility was on 02/26 which was 130, then her fluid restriction was removed. She drinks approximately 2 large tumblers of water daily. She went to her orthopedic appointment yesterday for right leg cast removal and airboot installment. No recent falls, fever, nausea, vomiting, chest pain, nausea, vomiting, abdominal pain. Patient recently completed treatment for a UTI. Upon evaluation, patient is restless but directable. She is AAO to place and year, but unable to follow commands or knows her name. She is able to recognize her family at bedside. PMH: Spinal stenosis, Hypertension, Tendon rupture in foot, Polymyalgia rheumatica (30 years ago), Urinary incontinence, osteopenia, insomnia PSH: Tibia fracture post fall in February 2025, acute bimalleolar fracture of the right ankle which was splinted in january 2025, L hip repair, bone grafting and dental implant placement in the jaw, gallbladder removal with liver resection at [facility] (approximately 10 years after hysterectomy), attempted gallbladder removal resulting in large incision, gallbladder found embedded in liver (approximately 10 years after hysterectomy), hysterectomy with bilateral oophorectomy at age 51, tonsillectomy at age 10 FH: [facility]-heart surgery, history of cancer, Heart stent SH: Temporarily at [facility] for acute rehab. Lives with family Allergies: Opioids - nausea and vomiting In the ER, patient vitals were stable. Labs significant for hyponatremia at 118 and elevated troponin at 0.194. CXR was suspicious for L base pneumonia and she was given ceftriaxone and azithromycin. EKG showed sinus tachycardia. Head CT was negative. Hip/Pelvis X-ray Left hip bipolar hemiarthroplasty with satisfactory alignment. Patient was given Tylenol, Toradol, and Lidocaine patch for her pain. She was started on 40cc of 3% normal saline. Dr. Rayo (PCP) was contacted and recommended patient to be admitted to the ICU for admitted encephalopathy. Review of Systems Review of Systems Systems Reviewed: All systems reviewed, normal except as documented Exam Vital Signs Temp Pulse Resp BP Pulse Ox O2 Del Method 98.0 F 88 17 124/79 98 Room Air 03/09/25 10:00 03/09/25 10:00 03/09/25 10:00 03/09/25 10:00 03/09/25 10:00 03/09/25 10:00 Narrative Exam Constitutional: Restless, confused elderly female HEENT: NCAT. Mucous membranes dry. Respiratory: CTAB bilaterally. Cardiac: RRR. Normal S1, S2. No MRG appreciated. Abdomen: Soft, non-distended, non-tender. MSK: No B/L LE edema. R ankle in boot. Skin: Warm, dry, intact. Decreased skin turgor. Neuro: Motor and sensation grossly intact. Difficulty following commands. AAO x 2 (place, year only). Results: Labs 03/09/25 08:25 03/09/25 11:01 Labs: Short CBC 05/15/25 Range/Units 08:25 WBC 10.2 (3.6-11.0) Thou/mm3 Hgb 12.9 (12.0-16.0) g/dL Hct 34.0 L (36.0-46.0) % Plt Count 217 D (140-440) Thou/mm3 BMP 03/09/25 08:25 Sodium 118 L* Potassium 4.2 Chloride 86 L Carbon Dioxide 24.7 BUN 16 Creatinine 0.8 Glucose 112 H Calcium 9.0 Cardiac Enzymes 03/09/25 Range/Units 08:25 Troponin I 0.194 H* (0.0-0.045) ng/mL Liver Function 03/09/25 Range/Units 08:25 Total Bilirubin 1.2 (0.3-1.2) mg/dL AST 22 (0-34) U/L ALT 16 (10-49) U/L Alkaline Phosphatase 135 H (46-116) U/L Albumin 4.2 (3.4-4.8) gm/dL Urine 03/09/25 Range/Units 08:32 Urine Color Lt-Yellow (Lt Yel-Yel) Urine Clarity Hazy (Clear/Hazy) Urine pH 5.5 (5.0-7.0) Ur Specific [place] 1.013 (1.001-1.035) Urine Protein Negative (Neg - Trace) Urine Glucose (UA) Negative (Negative) ABG Interpretation ABG results: 03/09/25 08:25 VBG pH 7.42 VBG pCO2 40 VBG pO2 23 VBG Base Excess 1 Quality Measures Quality Measures none Advance care planning discussed with:: child Medications Home Medications and Allergies Home Medications ?Medication ?Instructions ?Recorded ?Confirmed ?Type carvedilol 3.125 mg tablet 3.125 mg PO BID Htn 5 03/09/25 History omeprazole 20 mg capsule,delayed 20 mg PO DAILY Gastri tis 02/10/25 03/09/25 History release psyllium husk 3.4 gram/5.8 gram 1 ea PO HS PRN Constip ation 02/10/25 03/09/25 History oral powder (Metamucil Sugar-Free (aspartame)) spironolactone 25 mg tablet 25 mg PO DAILY Htn 5 03/09/25 History trazodone 50 mg tablet 25 mg PO HS PRN Insomnia 03/09/25 History valsartan 160 mg tablet (Diovan) 160 mg PO .PM Htn 03/09/25 History acetaminophen 500 mg tablet 500 mg PO QID PRN pain 03/09/25 History (Acetaminophen Extra Strength) aspirin 81 mg chewable tablet 81 mg PO QDAY 03/09/25 0 03/09/25 History bisacodyl 10 mg rectal suppository 10 mg VT QDAY PRN c onstipation 03/09/25 03/09/25 History (Dulcolax (bisacodyl)) buspirone 5 mg tablet 5 mg PO BID 03/09/25 5 History cholecalciferol (vitamin D3) 125 5,000 unit PO BID 03/09/25 History mcg (5,000 unit) capsule fluticasone furoate 27.5 2 spray intranasal HS 03/09/25 History mcg/actuation nasal spray,suspension gabapentin 100 mg capsule 100 mg PO TID 03/09/2503/09 History magnesium hydroxide 400 mg/5 mL 1,200 mg PO Q3D PRN co nstipation 03/09/25 03/09/25 History oral suspension (Milk of Magnesia) melatonin 5 mg capsule 5 mg PO Q24H PRN sleep 03/0903/09/25 History naproxen 250 mg tablet 250 mg PO TID 03/09/2503/09 History sodium phosphates 19 gram-7 118 ml VT QDAY PRN constip ation 03/09/25 03/09/25 History gram/118 mL enema (Enema) zolpidem 5 mg tablet (Ambien) 5 mg PO HS PRN SLEEP 03/09/25 History Allergies Allergy/AdvReac Type Severity Reaction Status Date / Time Opioids - Morphine Analogues Allergy Severe Nausea and Verified 03/09/25 08:46 vomiting Visit Medications Heparin Sodium (Porcine) (Heparin Sod Inj 5000 Unit/Ml Vial) 5,000 unit SC Q8HR CASSANDRA Stop: 03/23/25 13:59 Sodium Chloride 500 ml/ IV (Miscellaneous Supplies) 500 mls @ 40 mls/hr IV X1 ONE Stop: 03/09/25 21:54 Last Admin: 03/09/25 10:31 Dose: 40 mls/hr Magnesium Sulfate (Magnesium Sulfate Ivpb) 2 gm in 50 mls @ 25 mls/hr IV X1 ONE Stop: 03/09/25 11:30 Sodium Chloride (Ns) 1,000 mls @ 100 mls/hr IV .Q10H CASSANDRA Stop: 04/08/25 10:39 Ondansetron HCl (Ondansetron Inj 2 Mg/Ml Inj 2 Ml) 4 mg IV Q6H PRN; Protocol PRN Reason: NAUSEA OR VOMITING Stop: 04/08/25 10:27 Sennosides (Senna Tablet) 1 tab PO QDAY CASSANDRA; Protocol Stop: 04/08/25 10:29 Discontinued Medications Acetaminophen (Acetaminophen 325 Mg Tablet) 650 mg PO X1 ONE Stop: 03/09/25 07:39 Last Admin: 03/09/25 08:04 Dose: 650 mg Ceftriaxone Sodium/Dextrose (Rocephin/D5w 1gm Iv Premix) 1 gm in 50 mls @ 100 mls/hr IV X1 ONE Stop: 03/09/25 09:50 Last Infusion: 03/09/25 10:06 Dose: Infused Azithromycin 500 mg/ Sodium (Chloride) 250 mls @ 250 mls/hr IV X1 ONE Stop: 03/09/25 10:21 Last Admin: 03/09/25 10:10 Dose: 250 mls/hr Ketorolac Tromethamine (Ketorolac Inj 30 Mg/Ml Vial) 30 mg IVP X1 ONE Stop: 03/09/25 08:24 Last Admin: 03/09/25 08:37 Dose: 30 mg Lidocaine (Lidocaine 5% 1 Patch) 1 patch TOP X1 ONE Stop: 03/09/25 07:35 Last Admin: 03/09/25 08:05 Dose: 1 patch Assessment & Plan Plan Patient is a 85 year old female admitted to the ICU for symptomatic hypoosmolar hyponatremia. [employer]ER Problem: Acute encephalopathy DDX: hyponatremia, polypharmacy, pain DX: Head CT negative for acute hemorrhage, mass effect or midline shift. Patient on trazadone, recently started on gabapentin and ambien. RX: Holding psych meds for hyponatremia RRX: If mentation does not improve with correction of sodium, will explore alternative metabolic or toxic etiologies of encephalopathy CVS Problem: Elevated troponin DDX: DX: No acute chest pain. EKG shows sinus tacycardia. Elevated troponin at 0.19. Previous echo shows mildly elevated RSVP and EF of 55% with grade 1 diastolic dysfunction. Will trend troponin. RX: RRX: #History of HTN Patient normotensive. Holding home BP meds (valsartan, spironolactone) Respi Problem: No acute problems Renal Problem: Hypoosmolar hyponatremia DDX: SIADH from trazadone, polydipsia, pain DX: Sodium Q3H RX: Will give Hypertonic saline at 40cc/hr x 2 hours, and normal saline at 100cc/hr. Vicente to monitor I&O. RRX: Patient appears dry and encephalopathic on exam. Initial sodium at 118. Goal sodium is 126 within the next 24 hours, approximately increase sodium by 1 meQ every 3 hours. If sodium > 1 every 3 hours, half hypertonic saline and reasses. If sodium > 2 every 3 hours, stop IV fluids and reassess. May start D5W or desmopressin if sodium over corrects. Dr. Rayo following. GI Problem: No acute problems Endo No acute problems Heme Problem: No acute problems ID No acute prblems MSK #Recent L hip fracture repair Hip CT shows left hip bipolar hemiarthroplasty with satisfactory alignment. - Continue aspirin 81mg for DVT prophylaxis Health Maintenance Disposition: Admit to ICU for severe hypoosmolar hyponatremia Diet and fluids: IVF DVT prophylaxis: aspirin, heparin GI prophylaxis: none Lines: PIV CODE STATUS: FULL
[2025-03-09] MEDS: SENNA TABLET 1 TAB PO (10:50)
[2025-03-09] MEDS: Magnesium Sulfate 2 GM Ivpb 2 GM/50 ML BAG IV (11:11)
[2025-03-09] MEDS: SODIUM CHLORIDE 0.9% 1000 ML 1,000 ML 100 ML IV (11:34)
[2025-03-09 11:39] LABS: Sodium 114 mMol/L (136-145)
[2025-03-09] MEDS: SODIUM CHLORIDE 3%(Hypertonic) 100 ML in PRE-MIXED 1 BAG 600 ML IV (13:23)
[2025-03-09] MEDS: HEPARIN SOD INJ 5000 UNIT/ML VIAL SC ×2 (13:41→22:30)
--- NOTE | 2025-03-09 14:01 | PD.RESCONSUL ---
[facility] Data of Consult Consult date: 03/09/25 Requesting Physician: Reyes Tinsley MD Admitting Provider: Reyes Tinsley MD Attending Provider: Reyes Tinsley MD Primary Care Provider: Lawanda Rayo MD Consult Narrative Reason for consult: Severe symptomatic hyponatremia History of present illness: 85 y/o F with PMHx significant for chronic hyponatremia, hypertension, spinal stenosis, polymyalgia rheumatica (30 years ago), right tibia and ankle fracture repair (February 23), who presents from rehab for acute encephalopathy. Per family at bedside, patient was at her normal baseline mentation sharp as a tack until last night, when staff found her confused and complaining of left hip pain. Family were concerned and so patient was brought to the ER. Per nursing staff, patient's last sodium result at the facility was on 02/26 which was 130, then her fluid restriction was removed. She drinks approximately 2 large tumblers of water daily. She went to her orthopedic appointment yesterday for right leg cast removal and airboot installment. No recent falls, fever, nausea, vomiting, chest pain, nausea, vomiting, abdominal pain. Patient recently completed treatment for a UTI. Patient was also recently started on gabapentin low-dose, has taken Ambien for past few days although has taken Ambien in the past without issue. In the ER, patient vitals were stable. Labs significant for hyponatremia at 118 and elevated troponin at 0.194. CXR was suspicious for L base pneumonia and she was given ceftriaxone and azithromycin. EKG showed sinus tachycardia. Head CT was negative. Hip/Pelvis X-ray Left hip bipolar hemiarthroplasty with satisfactory alignment. Patient was given Tylenol, Toradol, and Lidocaine patch for her pain. Patient was admitted to ICU for severe symptomatic hyponatremia requiring hypertonic saline. Nephrology was consulted for management of hyponatremia. Patient seen and examined at bedside, mildly uncomfortable. Reports left hip pain, mild. A&O x 3, patient denies fever, chills, chest pain, nausea, vomiting, abdominal pain, shortness of breath, dizziness, headaches. Patient hyponatremia has worsened, 118 down to 114. Patient did receive normal saline due to dehydration, has been discontinued. Patient received bolus of hypertonic saline, will receive maintenance fluids hypertonic saline. Urine random sodium 29.6. Potassium 4.2, bicarb 24.7, BUN 16, creatinine 0.8, EGFR greater than 60, lactic acid 1.3, Pro-Harvinder 0.07. Frequent sodium checks. cc:: cc: Reyes Tinsley MD Review of Systems Review of Systems Systems Reviewed: All systems reviewed, normal except as documented Past Medical History Past Medical History Comments PMH COMMENT: PMH: Spinal stenosis, Hypertension, Tendon rupture in foot, Polymyalgia rheumatica (30 years ago), Urinary incontinence, osteopenia, insomnia PSH: Tibia fracture post fall in February 2025, acute bimalleolar fracture of the right ankle which was splinted in january 2025, L hip repair, bone grafting and dental implant placement in the jaw, gallbladder removal with liver resection at [facility] (approximately 10 years after hysterectomy), attempted gallbladder removal resulting in large incision, gallbladder found embedded in liver (approximately 10 years after hysterectomy), hysterectomy with bilateral oophorectomy at age 51, tonsillectomy at age 10 FH: [facility] open-heart surgery, history of cancer, Heart stent SH: Temporarily at [facility] for acute rehab. Lives with family Allergies: Opioids - nausea and vomiting Exam Vital Signs Temp Pulse Resp BP Pulse Ox O2 Del Method 97.0 F 74 19 115/62 96 Room Air 03/09/25 11:25 03/09/25 12:31 03/09/25 12:31 03/09/25 12:03/09/25 12:03/09/25 10:00 Narrative Exam PE: Gen: Well-developed and well-nourished. Moderate discomfort. HEENT: NCAT, PERRLA, EOMI, anicteric conjunctivae. Dry mucous membranes. CVS: normal S1 and S2. RRR. No M/R/G. Resp: CTA B/L. No rhonchi, rales, crackles or wheezing. Abd: soft, non-tender, non-distended. MSK: Good ROM in BUE & BLE. No edema or rash. Right foot boot. Neuro: CN II-XII grossly intact. Strength 5/5 in BUE & BLE. Alert and oriented x3. Psych: appropriate mood and affect. Results Labs 03/12/25 04:40 03/12/25 08:34 Labs: Short CBC 03/09/25 Range/Units 08:25 WBC 10.2 (3.6-11.0) Thou/mm3 Hgb 12.9 (12.0-16.0) g/dL Hct 34.0 L (36.0-46.0) % Plt Count 217 D (140-440) Thou/mm3 BMP 03/09/25 03/09/25 08:25 11:01 Sodium 118 L* 114 L* Potassium 4.2 Chloride 86 L Carbon Dioxide 24.7 BUN 16 Creatinine 0.8 Glucose 112 H Calcium 9.0 Cardiac Enzymes 03/09/25 Range/Units 08:25 Troponin I 0.194 H* (0.0-0.045) ng/mL Liver Function 03/09/25 Range/Units 08:25 Total Bilirubin 1.2 (0.3-1.2) mg/dL AST 22 (0-34) U/L ALT 16 (10-49) U/L Alkaline Phosphatase 135 H (46-116) U/L Albumin 4.2 (3.4-4.8) gm/dL Urine 03/09/25 Range/Units 08:32 Urine Color Lt-Yellow (Lt Yel-Yel) Urine Clarity Hazy (Clear/Hazy) Urine pH 5.5 (5.0-7.0) Ur Specific [place] 1.013 (1.001-1.035) Urine Protein Negative (Neg - Trace) Urine Glucose (UA) Negative (Negative) ABG Interpretation ABG results: 03/09/25 08:25 VBG pH 7.42 VBG pCO2 40 VBG pO2 23 VBG Base Excess 1 Quality Measures Quality Measures VTE prophylaxis Advance care planning discussed with:: patient and child Medications Home Medications and Allergies Home Medications ?Medication ?Instructions ?Recorded ?Confirmed ?Type carvedilol 3.125 mg tablet 3.125 mg PO BID Htn 02/10/25 03/09/25 History Held on 03/12/25. Instructions: Resume on 03/23/25. Resume after clearance from your PCP omeprazole 20 mg capsule,delayed 20 mg PO DAILY Gastritis 02/10/25 03/09/25 History release psyllium husk 3.4 gram/5.8 gram 1 ea PO HS PRN Constipation 02/10/25 03/09/25 History oral powder (Metamucil Sugar-Free (aspartame)) spironolactone 25 mg tablet 25 mg PO DAILY Htn 02/10/25 03/09/25 History Held on 03/11/25. Instructions: Hold until you see your PCP trazodone 50 mg tablet 25 mg PO HS PRN Insomnia 02/10/25 03/09/25 History Held on 03/11/25. Instructions: Hold until you see your PCP acetaminophen 500 mg tablet 500 mg PO QID PRN pain 03/09/25 03/09/25 History (Acetaminophen Extra Strength) aspirin 81 mg chewable tablet 81 mg PO QDAY 03/09/25 03/09/25 History bisacodyl 10 mg rectal suppository 10 mg ND QDAY PRN constipation 03/09/25 03/09/25 History (Dulcolax (bisacodyl)) buspirone 5 mg tablet 5 mg PO BID 03/09/25 03/09/25 History Held on 03/11/25. Instructions: Hold until you see your PCP cholecalciferol (vitamin D3) 125 5,000 unit PO BID 03/09/25 03/09/25 History mcg (5,000 unit) capsule fluticasone furoate 27.5 2 spray intranasal HS 03/09/25 03/09/25 History mcg/actuation nasal spray,suspension gabapentin 100 mg capsule 100 mg PO TID 03/09/25 03/09/25 History magnesium hydroxide 400 mg/5 mL 1,200 mg PO Q3D PRN constipation 03/09/25 03/09/25 History oral suspension (Milk of Magnesia) melatonin 5 mg capsule 5 mg PO Q24H PRN sleep 03/09/25 03/09/25 History naproxen 250 mg tablet 250 mg PO TID 03/09/25 03/09/25 History sodium phosphates 19 gram-7 118 ml ND QDAY PRN constipation 03/09/25 03/09/25 History gram/118 mL enema (Enema) zolpidem 5 mg tablet (Ambien) 5 mg PO HS PRN SLEEP 03/09/25 03/09/25 History Held on 03/11/25. Instructions: Hold until you see your PCP Allergies Allergy/AdvReac Type Severity Reaction Status Date / Time Opioids - Morphine Analogues Allergy Severe Nausea and Verified 03/09/25 08:46 vomiting Visit Medications Acetaminophen (Acetaminophen 325 Mg Tablet) 650 mg PO Q4HR PRN PRN Reason: Pain 1-3 Stop: 04/08/25 11:26 Last Admin: 03/09/25 11:38 Dose: 650 mg Aspirin (Aspirin Ec 81 Mg Tabec) 81 mg PO QDAY [facility] Stop: 04/09/25 08:59 Heparin Sodium (Porcine) (Heparin Sod Inj 5000 Unit/Ml Vial) 5,000 unit SC Q8HR CASSANDRA Stop: 03/23/25 13:59 Last Admin: 03/09/25 13:41 Dose: 5,000 unit Sodium Chloride 500 ml/ IV (Miscellaneous Supplies) 500 mls @ 40 mls/hr IV X1 ONE Stop: 03/09/25 21:54 Last Infusion: 03/09/25 13:34 Dose: 40 mls/hr Ondansetron HCl (Ondansetron Inj 2 Mg/Ml Inj 2 Ml) 4 mg IV Q6H PRN; Protocol PRN Reason: NAUSEA OR VOMITING Stop: 04/08/25 10:27 Sennosides (Senna Tablet) 1 tab PO QDAY [facility]; Protocol Stop: 04/08/25 10:29 Last Admin: 03/09/25 10:50 Dose: 1 tab Discontinued Medications Acetaminophen (Acetaminophen 325 Mg Tablet) 650 mg PO X1 ONE Stop: 03/09/25 07:39 Last Admin: 03/09/25 08:04 Dose: 650 mg Aspirin (Aspirin Ec 81 Mg Tabec) 81 mg PO BID [facility] Stop: 04/08/25 20:59 Ceftriaxone Sodium/Dextrose (Rocephin/D5w 1gm Iv Premix) 1 gm in 50 mls @ 100 mls/hr IV X1 ONE Stop: 03/09/25 09:50 Last Infusion: 03/09/25 10:06 Dose: Infused Azithromycin 500 mg/ Sodium (Chloride) 250 mls @ 250 mls/hr IV X1 ONE Stop: 03/09/25 10:21 Last Infusion: 03/09/25 11:11 Dose: Infused Magnesium Sulfate (Magnesium Sulfate Ivpb) 2 gm in 50 mls @ 25 mls/hr IV X1 ONE Stop: 03/09/25 11:30 Last Admin: 03/09/25 11:11 Dose: 25 mls/hr Sodium Chloride (Ns) 1,000 mls @ 100 mls/hr IV .Q10H [facility] Stop: 04/08/25 10:39 Last Infusion: 03/09/25 13:23 Dose: 0 mls/hr Sodium Chloride 100 ml/ IV (Miscellaneous Supplies) 100 mls @ 600 mls/hr IV X1 ONE Stop: 03/09/25 13:24 Last Infusion: 03/09/25 13:34 Dose: Infused Ketorolac Tromethamine (Ketorolac Inj 30 Mg/Ml Vial) 30 mg IVP X1 ONE Stop: 03/09/25 08:24 Last Admin: 03/09/25 08:37 Dose: 30 mg Lidocaine (Lidocaine 5% 1 Patch) 1 patch TOP X1 ONE Stop: 03/09/25 07:35 Last Admin: 03/09/25 08:05 Dose: 1 patch Assessment & Plan Plan 85 y/o F with PMHx significant for chronic hyponatremia, hypertension, spinal stenosis, polymyalgia rheumatica (30 years ago), right tibia and ankle fracture repair (February 23), who presents from rehab for acute encephalopathy, admit to ICU for management of acute severe symptomatic hyponatremia. #Acute encephalopathy #Hypoosmolar hyponatremia Patient presented from acute rehab facility with chief complaint of acute encephalopathy x 1 day. Possibly multifactorial, patient's had poor sleep lately, has been taking Ambien for past 2 nights. Patient also recently started on gabapentin due to radicular pain in left hip. Patient is history of chronic asymptomatic hyponatremia, however fluid restriction was lifted February 26. On presentation his labs showed sodium 118, patient admitted to ICU for treatment of severe symptomatic hyponatremia. Initially appeared dehydrated exam, was given normal saline, sodium decreased to 114. Normal saline discontinued, patient given 100 mL bolus hypertonic saline, started on hypertonic saline maintenance fluids. Vicente placed for I & O monitoring. Urinalysis shows random sodium 29.6. - Hypertonic saline at 40 cc/h x 500 cc - Strict I & O - Fluid restriction 1 L daily - Sodium check every 3 hours - Hold home medication for now, consider restarting when appropriate - Serum osmolarity pending, follow-up #Troponemia #History of HTN #Recent L hip fracture repair Management as per ICU team. Diet: Regular DVT prophylaxis: aspirin, heparin GI prophylaxis: none Lines: PIV CODE STATUS: FULL Thank you for allowing us to participate in the care of this patient. Plan of care discussed with attending Dr. Rayo. Wilbur Mccann MD PGY?1 Attending Provider Attestation/Addendum Patient seen and examined with resident physician Dr. Martinez. Note reviewed, agree with findings and recommendations. patient currently seen in ICU. Admitted with altered mental status and symptomatic hyponatremia. Plan of care discussed with ICU team Thank you Dr. Tinsley for allowing me to participate in the care of Ms. Camacho
[2025-03-09 14:09] LABS: Sodium 118 mMol/L (136-145)
[2025-03-09 15:16] LABS: Sodium 123 mMol/L (136-145)
[2025-03-09] MEDS: DESMOPRESSIN ACETATE 4 MCG/ML VIAL 2 MCG IV (15:57)
[2025-03-09 17:17] LABS: Sodium 124 mMol/L (136-145)
[2025-03-09] MEDS: DEXTROSE 5%-WATER 1,000 ML 100 ML IV (18:19)
[2025-03-09 19:12] LABS: Sodium 123 mMol/L (136-145)
[2025-03-09 19:17] LABS: Troponin I 0.071 ng/mL (0.0-0.045)
[2025-03-09 21:33] LABS: Sodium 118 mMol/L (136-145); Troponin I 0.061 ng/mL (0.0-0.045)
[2025-03-09 23:27] LABS: Sodium 119 mMol/L (136-145)
[2025-03-10] VITALS (29 sets, daily range): BP systolic 86–152; BP diastolic 48–87; PULSE 55–86; RESP 13–99; TEMP 36.2–36.7; O2SAT 96–99; BMI 28.1
[2025-03-10] MEDS: SODIUM CHLORIDE 0.9% 500 ML 500 ML 150 ML IV ×2 (01:00→04:10)
[2025-03-10 05:37] LABS: Basophils % (Auto) 1 % (0-2.5); Eosinophils # (Auto) 0.1 Thou/mm3 (0.0-0.5); Eosinophils % (Auto) 2 % (0-10); Hematocrit 27.8 % (36.0-46.0); Immature Granulocytes % (Auto) 0 % (0-0); Immature Granulocytes Auto 0.01 Thou/mm3 (0.00-0.00); Lymphocytes # (Auto) 1.2 Thou/mm3 (1.0-4.8); Lymphocytes % (Auto) 26 % (10-50); Mean Corpuscular Hemoglobin 33.1 pg (25.0-35.0); Mean Corpuscular Volume 92 fL (80-100); Monocytes # (Auto) 0.6 Thou/mm3 (0.0-0.8); Monocytes % (Auto) 14 % (0-12); Neutrophils # (Auto) 2.5 Thou/mm3 (1.8-7.7); Neutrophils % (Auto) 57 % (37-80); Nucleated Red Blood Cell % 0 /100 WBC (0); Platelet Count 159 Thou/mm3 (140-440); RDW Standard Deviation 40.5 fL (36.4-46.3); Red Blood Count 3.02 Miln/mm3 (4.00-5.20); White Blood Count 4.5 Thou/mm3 (3.6-11.0)
[2025-03-10] MEDS: HEPARIN SOD INJ 5000 UNIT/ML VIAL SC (05:58)
[2025-03-10 06:05] LABS: Alanine Aminotransferase 11 U/L (10-49); Albumin, Serum 3.1 gm/dL (3.4-4.8); Albumin/Globulin Ratio 1.8 (1.2-2.2); Alkaline Phosphatase 98 U/L (46-116); Anion Gap 8 (7-16); Aspartate Amino Transferase 16 U/L (0-34); BUN/Creatinine Ratio 22 Ratio (12-20); Bilirubin,Total 0.6 mg/dL (0.3-1.2); Blood Urea Nitrogen 13 mg/dL (9-23); Calcium 7.9 mg/dL (8.3-10.6); Calcium (Corrected) 8.6 mg/dL (8.5-10.1); Carbon Dioxide 21.9 mMol/L (20.0-31.0); Chloride 94 mMol/L (98-107); Creatinine (Component) 0.6 mg/dL (0.6-1.3); Estimated Creatinine Clearance 69.2 mL/min (>60); Globulin 1.7 gm/dL (2.3-3.5); Glucose 91 mg/dL (74-106); Osmolality,Calculated 249 (275-295); Phosphorous 3.3 mg/dL (2.4-5.1); Potassium 4.1 mMol/L (3.4-5.1); Sodium 124 mMol/L (136-145); Total Protein 4.8 gm/dL (5.7-8.2); eGFR > 60 See Note
[2025-03-10] MEDS: SENNA TABLET 1 TAB PO (09:36)
[2025-03-10] MEDS: ASPIRIN EC 81 MG TABEC PO (09:36)
[2025-03-10 09:46] LABS: Sodium 125 mMol/L (136-145)
--- NOTE | 2025-03-10 09:51 | ESPR_ITS ---
<Statement entered by Reyes Tinsley MD - 03/10/25 21:24> TOTAL CC TIME: 45 MIN I saw and evaluated the patient. I reviewed the resident?s note and agree with findings and plan as documented in the resident?s note. Upon my evaluation, this patient had a high probability of imminent or life- threatening deterioration due to severe hyponatremia, which required my direct attention, intervention, and personal management. This time is exclusive of time spent on procedures, which are documented separately if performed. initially responded to 500ml saline bolus x 2 o/n. clinically much improved - less agitated - more oriented however, Na+ remained lower then expected despite DDAVP UO decreased. resumed HT 3% saline at 15ml/hr cont slow rate of correction goal Documentation for date of: 03/10/25 Subjective Subjective Interval history: Patient is an 85 year old female with past medical history of hypertension, spinal stenosis, polymyalgia rheumatica (30 years ago), right tibia and ankle fracture repair (February 23), who presents from rehab for acute encephalopathy. Per family at bedside, patient was at her normal baseline mentation sharp as a tack until last night, when staff found her confused and complaining of left hip pain. Family were concerned and so patient was brought to the ER. Per nursing staff, patient's last sodium result at the facility was on 02/26 which was 130, then her fluid restriction was removed. She drinks approximately 2 large tumblers of water daily. She went to her orthopedic appointment yesterday for right leg cast removal and airboot installment. No recent falls, fever, nausea, vomiting, chest pain, nausea, vomiting, abdominal pain. Patient recently completed treatment for a UTI. Upon evaluation, patient is restless but directable. She is AAO to place and year, but unable to follow commands or knows her name. Patient was found to be hyponatremic at 118. She was started on 40cc of 3% normal saline. Dr. Rayo (PCP) was contacted and recommended patient to be admitted to the ICU for admitted encephalopathy. 03/10/2025: Yesterday, patient sodium corrected from 114 to 123 with significant polyuria. She was started on D5W and desmopressin. Her sodium then decreased to 118, 119 and she got 2 x 500cc bolus of NS. This morning, her sodium is 124. Patient's mentation improved. She is awake, calm, orientated to name and year. She appears euvolemic. Will hold desmopressin and check sodium every 4 hours. Goal sodium by 8pm is 128. Will keep patient in ICU overnight to monitor sodium and fluid requirements. Family updated at bedside. Exam Vital Signs Temp Pulse Resp BP Pulse Ox O2 Del Method 97.7 F 71 18 132/74 H 98 Room Air 03/10/25 04:00 03/10/25 09:05 03/10/25 09:05 03/10/25 06:00 03/10/25 06:00 03/09/25 10:00 Narrative Exam Constitutional: NAD. Awake, pleasant. HEENT: NCAT. Vision grossly intact. Mucous membranes moist. Respiratory: CTAB bilaterally. Cardiac: RRR. Abdomen: Soft, non-distended, non-tender. MSK: No B/L LE edema. Skin: Warm, dry, intact. R LE in airboot. Neuro: Motor and sensation grossly intact. Objective Labs 03/10/25 04:30 03/10/25 09:17 Labs: Laboratory Results - last 24 hr 03/09/25 03/09/25 03/09/25 11:01 13:45 14:59 WBC RBC Hgb Hct MCV MCH MCHC RDW Std Deviation Plt Count Neut % (Auto) Lymph % (Auto) Wise % (Auto) Eos % (Auto) Baso % (Auto) Neut # (Auto) Lymph # (Auto) Wise # (Auto) Eos # (Auto) Baso # (Auto) Immature Gran # (Auto) Absolute Nucleated RBC Immature Gran % Nucleated RBC % Sodium 114 L* 118 L* 123 L Potassium Chloride Carbon Dioxide Anion Gap BUN Creatinine Estim Creat Clear Calc eGFR BUN/Creatinine Ratio Glucose Calculated Osmolality Calcium Corrected Calcium Phosphorus Magnesium Total Bilirubin AST ALT Alkaline Phosphatase Troponin I Total Protein Albumin Globulin Albumin/Globulin Ratio 03/09/25 03/09/25 03/09/25 17:02 18:45 20:52 WBC RBC Hgb Hct MCV MCH MCHC RDW Std Deviation Plt Count Neut % (Auto) Lymph % (Auto) Wise % (Auto) Eos % (Auto) Baso % (Auto) Neut # (Auto) Lymph # (Auto) Wise # (Auto) Eos # (Auto) Baso # (Auto) Immature Gran # (Auto) Absolute Nucleated RBC Immature Gran % Nucleated RBC % Sodium 124 L 123 L 118 L* Potassium Chloride Carbon Dioxide Anion Gap BUN Creatinine Estim Creat Clear Calc eGFR BUN/Creatinine Ratio Glucose Calculated Osmolality Calcium Corrected Calcium Phosphorus Magnesium Total Bilirubin AST ALT Alkaline Phosphatase Troponin I 0.071 H* 0.061 H* Total Protein Albumin Globulin Albumin/Globulin Ratio 03/09/25 03/10/25 03/10/25 22:34 04:30 09:17 WBC 4.5 D RBC 3.02 L Hgb 10.0 L D Hct 27.8 L MCV 92 MCH 33.1 MCHC 36.0 RDW Std Deviation 40.5 Plt Count 159 D Neut % (Auto) 57 Lymph % (Auto) 26 Wise % (Auto) 14 H Eos % (Auto) 2 Baso % (Auto) 1 Neut # (Auto) 2.5 Lymph # (Auto) 1.2 Wise # (Auto) 0.6 Eos # (Auto) 0.1 Baso # (Auto) 0.0 Immature Gran # (Auto) 0.01 H Absolute Nucleated RBC 0.00 Immature Gran % 0 Nucleated RBC % 0 Sodium 119 L* 124 L 125 L Potassium 4.1 Chloride 94 L Carbon Dioxide 21.9 Anion Gap 8 BUN 13 Creatinine 0.6 Estim Creat Clear Calc 69.2 eGFR > 60 BUN/Creatinine Ratio 22 H Glucose 91 Calculated Osmolality 249 L Calcium 7.9 L Corrected Calcium 8.6 Phosphorus 3.3 Magnesium 2.0 Total Bilirubin 0.6 D AST 16 ALT 11 Alkaline Phosphatase 98 D Troponin I Total Protein 4.8 L Albumin 3.1 L D Globulin 1.7 L Albumin/Globulin Ratio 1.8 ABG Interpretation ABG results: 03/09/25 08:25 VBG pH 7.42 VBG pCO2 40 VBG pO2 23 VBG Base Excess 1 Quality Measures Quality Measures VTE prophylaxis Advance care planning discussed with:: child Assessment & Plan Assessment Current Active Medications: Generic Name Dose Route Start Last Admin Trade Name Freq PRN Reason Stop Dose Admin Acetaminophen 650 mg 03/09/25 11:27 03/09/25 11:38 Acetaminophen 325 Mg Tablet PO 04/08/25 11:26 650 mg Q4HR PRN Administration Pain 1-3 Aspirin 81 mg 03/10/25 09:00 03/10/25 09:36 Aspirin Ec 81 Mg Tabec PO 04/09/25 08:59 81 mg QDAY CASSANDRA Administration Desmopressin Acetate 2 mcg 03/09/25 22:00 03/10/25 04:02 Desmopressin Acetate 4 Mcg/Ml Vial IV 04/08/25 21:59 Not Given Q6H CASSANDRA Enoxaparin Sodium 40 mg 03/11/25 09:00 Enoxaparin Sod Inj 40 Mg/0.4 Ml Syringe SC 03/25/25 08:59 QDAY CASSANDRA Ondansetron HCl 4 mg 03/09/25 10:28 Ondansetron Inj 2 Mg/Ml Inj 2 Ml IV 04/08/25 10:27 Q6H PRN NAUSEA OR VOMITING Protocol Sennosides 1 tab 03/09/25 10:30 03/10/25 09:36 Senna Tablet PO 04/08/25 10:29 1 tab QDAY CASSANDRA Administration Protocol Plan Patient is a 85 year old female admitted to the ICU for symptomatic hypoosmolar hyponatremia. [employer] Problem: Acute encephalopathy, improving DDX: hyponatremia, polypharmacy, pain DX: Head CT negative for acute hemorrhage, mass effect or midline shift. Trazodone was recently doubled in dose. Patient also on ambien for insomnia. She was recently started on gabapentin for cervical stenosis with radiculopathy. All held during this admission. RX: RRX: Improving with sodium correction. CVS #Elevated troponin No acute chest pain. EKG shows sinus tacycardia. Elevated troponin at 0.19, downtrending. Previous echo shows mildly elevated RSVP and EF of 55% with grade 1 diastolic dysfunction. Patient without significant stressors or indication for a type II troponinemia. Will need outpatient follow up with cardiology. #History of HTN Patient normotensive. 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 Fluid restrict 1L. Goal Na 128 by 8pm. RRX: Initally presented at 118, decreased to 114 and treated with hypertonic saline. Patient then had polyuria and sodium overcorrected, so she was started on d5W and desmopressin. Sodium at goal this morning at 124. Holding fluids and desmopressin. Continue Q4H sodium checks. If Na overcorrects, restart hypotonic fluids. If Na decreases, restart normal saline. If patient develops polypuria with worsening hyponatremia, may consider desmopressin. Nephrology Dr. Rayo followiing. GI No acute problems Endo No acute problems Heme No acute problems ID No acute prblems MSK #Recent L hip fracture repair Hip CT shows left hip bipolar hemiarthroplasty with satisfactory alignment. - Continue aspirin 81mg for DVT prophylaxis Health Maintenance Disposition: Admit to ICU for severe hypoosmolar hyponatremia Diet and fluids: dysphagia pureed DVT prophylaxis: aspirin, lovenox GI prophylaxis: none Lines: PIV, Vicente CODE STATUS: FULL I have reviewed and discussed the patient's care with my attending, Dr. Alvina Welch MD PGY-3
[2025-03-10] MEDS: SODIUM CHLORIDE 1 GM TABLET PO (12:16)
[2025-03-10 13:40] LABS: Sodium 124 mMol/L (136-145)
--- NOTE | 2025-03-10 14:00 | ESPR_ITS ---
RE: TED PATRICIO : 1940 DATE OF SERVICE: 03/10/2025 HISTORY OF PRESENT ILLNESS: Briefly, she is an 85-year-old woman with a history of chronic SIADH resulting in chronic hyponatremia, hypertension, spinal stenosis, and polymyalgia rheumatica who presented to the hospital yesterday with confusion. The patient was found with severely low serum sodium of 114 yesterday. The patient's serum sodium rapidly mikel to 123 in 4 hours and was given Desmopressin and brought back her serum sodium to 118 to 119 and this morning around 124. She said that her serum sodium usually hovers around 130s to 132 on average. The patient was told before that she would need salt tablets; however, she resisted taking salt tablets before. She said that she is also preparing to have some dental implants in the near future. She is doing much better, answered questions appropriately. Denies any symptoms. No chest pain. No shortness of breath. She states that her who 20 years ago and they have two children, one is a physician and one is a physical therapist. 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 CURRENT MEDICATIONS: 1. Acetaminophen. 2. Aspirin. 3. Azithromycin. 4. Lovenox 40 mg subcutaneously daily. 5. Rocephin 1 g daily. 6. Magnesium. PHYSICAL EXAMINATION: General: She is awake, alert, and oriented. Vital Signs: Blood pressure is 144/70, heart rate of 77, temperature 98. HEENT: Anicteric sclerae. Normocephalic. Neck: Supple. No JVD. Chest and Lungs: Symmetrical expansion. Clear breath sounds. Heart: Without murmur. Abdomen: Soft, nontender. Extremities: No edema. LABORATORY DATA: Hemoglobin 10, WBC 4500, platelet count 159,000. Sodium 125, potassium 4.1, chloride 94, CO2 of 21.9, BUN 13, creatinine 0.6. ASSESSMENT: 1. Acute hyponatremia on chronic hyponatremia. 2. Confusion secondary to severe hyponatremia-resolved 3. History of hypertension. 4. Early left base pneumonia. PLAN: I believe that the sudden decline of her serum sodium from baseline of 130 to 114 may be due to her pneumonia and increased fluid intake. The patient's serum sodium should be raised not more than 4 to 6 mEq per day. Desmopressin was used to reset her serum sodium as it was corrected rather rapidly. At this time, serum sodium is around 124 from yesterday at 118 which is an appropriate rise in 24 hours. I will also start her on salt tablets 1 g daily and also cautioned her about drinking too much fluids. Her serum sodium has to be maintained above 130 in order for her to go for surgery. If her serum sodium is around 134, usually anesthesiologist is comfortable providing anesthesia for her surgical procedure. Once serum sodium reaches 130, then the patient can be discharged anytime with salt tablets. DT: 12:50:53 TT: 13:58:00 Ref: [id number] - TID: [id number] MTDD
--- NOTE | 2025-03-10 15:11 | PC.SS ---
DATE PULLER conducted bedside contact with the patient conduct initial assessment and to discuss discharge planning.? Patient confirmed demographic information.? Patient is a resident of [facility].? Patient has been placed at [facility] for approximately 3.5 weeks.? Patient is a short term resident.? Patient utilizes a wheelchair to assist with mobility. ?Patient does not utilize oxygen.? Patient requires assistance with completion of ADL?s.? Patient identified son, Dakotah Vences ; as surrogate medical decision maker.? Patient?s PCP is Dr. Rayo.? Patient does not participate with dialysis.? Patient does not possess any specialty providers.? Plan is for the patient to return to [facility] at the time of discharge.? telephone services sales representative will assist with arranging transportation on behalf of the patient. ?No further discharge needs identified by the patient.? No further intervention required at this time, foster care social worker will be available to address any further concerns.? Next of Kin: Dakotah Cartwrightshane D/C Plan: [facility]
[2025-03-10 17:29] LABS: Sodium 123 mMol/L (136-145)
[2025-03-10] MEDS: SODIUM CHLORIDE 3%(Hypertonic) 500 ML in PRE-MIXED 1 BAG 15 ML IV (19:16)
[2025-03-10 19:27] LABS: Sodium 122 mMol/L (136-145)
[2025-03-10 21:19] LABS: Sodium 122 mMol/L (136-145)
[2025-03-11] VITALS (24 sets, daily range): BP systolic 124–160; BP diastolic 64–85; PULSE 59–103; RESP 14–95; TEMP 36.3–36.8; O2SAT 93–99
[2025-03-11 02:21] LABS: Sodium 124 mMol/L (136-145)
[2025-03-11 03:30] LABS: Sodium 124 mMol/L (136-145)
[2025-03-11 06:47] LABS: Basophils % (Auto) 0 % (0-2.5); Eosinophils # (Auto) 0.1 Thou/mm3 (0.0-0.5); Eosinophils % (Auto) 2 % (0-10); Hematocrit 31.1 % (36.0-46.0); Hemoglobin 11.4 g/dL (12.0-16.0); Immature Granulocytes % (Auto) 0 % (0-0); Immature Granulocytes Auto 0.02 Thou/mm3 (0.00-0.00); Lymphocytes # (Auto) 1.1 Thou/mm3 (1.0-4.8); Lymphocytes % (Auto) 20 % (10-50); Mean Corpuscular HGB Conc 36.7 g/dl (31.0-37.0); Mean Corpuscular Hemoglobin 33.3 pg (25.0-35.0); Mean Corpuscular Volume 91 fL (80-100); Monocytes # (Auto) 0.5 Thou/mm3 (0.0-0.8); Monocytes % (Auto) 10 % (0-12); Neutrophils # (Auto) 3.6 Thou/mm3 (1.8-7.7); Neutrophils % (Auto) 67 % (37-80); Nucleated Red Blood Cell % 0 /100 WBC (0); Platelet Count 161 Thou/mm3 (140-440); RDW Standard Deviation 39.7 fL (36.4-46.3); Red Blood Count 3.42 Miln/mm3 (4.00-5.20); White Blood Count 5.3 Thou/mm3 (3.6-11.0)
[2025-03-11 07:23] LABS: Alanine Aminotransferase 12 U/L (10-49); Albumin, Serum 3.4 gm/dL (3.4-4.8); Albumin/Globulin Ratio 1.8 (1.2-2.2); Alkaline Phosphatase 105 U/L (46-116); Anion Gap 8 (7-16); Aspartate Amino Transferase 18 U/L (0-34); BUN/Creatinine Ratio 16 Ratio (12-20); Bilirubin,Total 0.6 mg/dL (0.3-1.2); Blood Urea Nitrogen 8 mg/dL (9-23); Calcium 8.2 mg/dL (8.3-10.6); Calcium (Corrected) 8.7 mg/dL (8.5-10.1); Carbon Dioxide 23.2 mMol/L (20.0-31.0); Chloride 94 mMol/L (98-107); Creatinine (Component) 0.5 mg/dL (0.6-1.3); Estimated Creatinine Clearance 82.8 mL/min (>60); Globulin 1.9 gm/dL (2.3-3.5); Glucose 105 mg/dL (74-106); Magnesium 1.8 mg/dL (1.6-2.6); Osmolality,Calculated 249 (275-295); Phosphorous 2.8 mg/dL (2.4-5.1); Potassium 3.9 mMol/L (3.4-5.1); Sodium 125 mMol/L (136-145); Total Protein 5.3 gm/dL (5.7-8.2); eGFR > 60 See Note
--- NOTE | 2025-03-11 08:14 | ESPR_ITS ---
<Statement entered by Sukh Jameson MD - 03/12/25 08:46> agree with above. transfer to telemetry. cumulative time spent in management of patient is 35 min Documentation for date of: 03/11/25 Subjective Subjective Interval history: Patient is an 85 year old female with past medical history of hypertension, spinal stenosis, polymyalgia rheumatica (30 years ago), right tibia and ankle fracture repair (February 23), who presents from rehab for acute encephalopathy. Per family at bedside, patient was at her normal baseline mentation sharp as a tack until last night, when staff found her confused and complaining of left hip pain. Family were concerned and so patient was brought to the ER. Per nursing staff, patient's last sodium result at the facility was on 02/26 which was 130, then her fluid restriction was removed. She drinks approximately 2 large tumblers of water daily. She went to her orthopedic appointment yesterday for right leg cast removal and airboot installment. No recent falls, fever, nausea, vomiting, chest pain, nausea, vomiting, abdominal pain. Patient recently completed treatment for a UTI. Upon evaluation, patient is restless but directable. She is AAO to place and year, but unable to follow commands or knows her name. Patient was found to be hyponatremic at 118. She was started on 40cc of 3% normal saline. Dr. Rayo (PCP) was contacted and recommended patient to be admitted to the ICU for admitted encephalopathy. 03/10/2025: Yesterday, patient sodium corrected from 114 to 123 with significant polyuria. She was started on D5W and desmopressin. Her sodium then decreased to 118, 119 and she got 2 x 500cc bolus of NS. This morning, her sodium is 124. Patient's mentation improved. She is awake, calm, orientated to name and year. She appears euvolemic. Will hold desmopressin and check sodium every 4 hours. Goal sodium by 8pm is 128. Will keep patient in ICU overnight to monitor sodium and fluid requirements. Family updated at bedside. 03/11/2025: Patient sodium corrected slowly, at 122-125. She was started on salt tablets and 3% hypertonic saline at 15cc/hr. Mentation back to baseline. Anticipate downgrade Tele today. Exam Vital Signs Temp Pulse Resp BP Pulse Ox O2 Del Method 98.1 F 85 19 147/72 H 97 Room Air 03/11/25 08:00 03/11/25 08:00 03/11/25 08:00 03/11/25 08:00 03/11/25 08:00 03/10/25 16:00 Narrative Exam Constitutional: NAD. Awake, pleasant. AAO x 3 HEENT: NCAT. Vision grossly intact. Mucous membranes moist. Respiratory: CTAB bilaterally. Cardiac: RRR. Abdomen: Soft, non-distended, non-tender. MSK: No B/L LE edema. Skin: Warm, dry, intact. R LE in airboot. Neuro: Motor and sensation grossly intact. Objective Labs 03/11/25 04:57 03/11/25 04:57 Labs: Laboratory Results - last 24 hr 03/10/25 03/10/25 03/10/25 09:17 13:16 17:05 WBC RBC Hgb Hct MCV MCH MCHC RDW Std Deviation Plt Count Neut % (Auto) Lymph % (Auto) [place] % (Auto) Eos % (Auto) Baso % (Auto) Neut # (Auto) Lymph # (Auto) [place] # (Auto) Eos # (Auto) Baso # (Auto) Immature Gran # (Auto) Absolute Nucleated RBC Immature Gran % Nucleated RBC % Sodium 125 L 124 L 123 L Potassium Chloride Carbon Dioxide Anion Gap BUN Creatinine Estim Creat Clear Calc eGFR BUN/Creatinine Ratio Glucose Calculated Osmolality Calcium Corrected Calcium Phosphorus Magnesium Total Bilirubin AST ALT Alkaline Phosphatase Total Protein Albumin Globulin Albumin/Globulin Ratio 03/10/25 03/10/25 03/11/25 18:53 20:58 01:19 WBC RBC Hgb Hct MCV MCH MCHC RDW Std Deviation Plt Count Neut % (Auto) Lymph % (Auto) [place] % (Auto) Eos % (Auto) Baso % (Auto) Neut # (Auto) Lymph # (Auto) [place] # (Auto) Eos # (Auto) Baso # (Auto) Immature Gran # (Auto) Absolute Nucleated RBC Immature Gran % Nucleated RBC % Sodium 122 L 122 L 124 L Potassium Chloride Carbon Dioxide Anion Gap BUN Creatinine Estim Creat Clear Calc eGFR BUN/Creatinine Ratio Glucose Calculated Osmolality Calcium Corrected Calcium Phosphorus Magnesium Total Bilirubin AST ALT Alkaline Phosphatase Total Protein Albumin Globulin Albumin/Globulin Ratio 03/11/25 03/11/25 03:02 04:57 WBC 5.3 RBC 3.42 L Hgb 11.4 L Hct 31.1 L MCV 91 MCH 33.3 MCHC 36.7 RDW Std Deviation 39.7 Plt Count 161 Neut % (Auto) 67 Lymph % (Auto) 20 [place] % (Auto) 10 Eos % (Auto) 2 Baso % (Auto) 0 Neut # (Auto) 3.6 Lymph # (Auto) 1.1 [place] # (Auto) 0.5 Eos # (Auto) 0.1 Baso # (Auto) 0.0 Immature Gran # (Auto) 0.02 H Absolute Nucleated RBC 0.00 Immature Gran % 0 Nucleated RBC % 0 Sodium 124 L 125 L Potassium 3.9 Chloride 94 L Carbon Dioxide 23.2 Anion Gap 8 BUN 8 L Creatinine 0.5 L Estim Creat Clear Calc 82.8 eGFR > 60 BUN/Creatinine Ratio 16 Glucose 105 Calculated Osmolality 249 L Calcium 8.2 L Corrected Calcium 8.7 Phosphorus 2.8 Magnesium 1.8 Total Bilirubin 0.6 AST 18 ALT 12 Alkaline Phosphatase 105 Total Protein 5.3 L Albumin 3.4 Globulin 1.9 L Albumin/Globulin Ratio 1.8 ABG Interpretation ABG results: 03/09/25 08:25 VBG pH 7.42 VBG pCO2 40 VBG pO2 23 VBG Base Excess 1 Quality Measures Quality Measures VTE prophylaxis Advance care planning discussed with:: patient and child Assessment & Plan Assessment Current Active Medications: Generic Name Dose Route Start Last Admin Trade Name Freq PRN Reason Stop Dose Admin Acetaminophen 650 mg 03/09/25 11:27 03/09/25 11:38 Acetaminophen 325 Mg Tablet PO 04/08/25 11:26 650 mg Q4HR PRN Administration Pain 1-3 Aspirin 81 mg 03/10/25 09:00 03/10/25 09:36 Aspirin Ec 81 Mg Tabec PO 04/09/25 08:59 81 mg QDAY CASSANDRA Administration Enoxaparin Sodium 40 mg 03/11/25 09:00 Enoxaparin Sod Inj 40 Mg/0.4 Ml Syringe SC 03/25/25 08:59 QDAY CASSANDRA Sodium Chloride 500 ml/ IV 500 mls @ 15 mls/hr 03/10/25 17:39 03/10/25 19:16 Miscellaneous Supplies IV 03/12/25 02:58 15 mls/hr X1 ONE Administration Ondansetron HCl 4 mg 03/09/25 10:28 Ondansetron Inj 2 Mg/Ml Inj 2 Ml IV 04/08/25 10:27 Q6H PRN NAUSEA OR VOMITING Protocol Sennosides 1 tab 03/09/25 10:30 03/10/25 09:36 Senna Tablet PO 04/08/25 10:29 1 tab QDAY CASSANDRA Administration Protocol Sodium Chloride 1 gm 03/11/25 09:00 Sodium Chloride 1 Gm Tablet PO 04/10/25 08:59 QDAY CASSANDRA Plan Patient is a 85 year old female admitted to the ICU for symptomatic hypoosmolar hyponatremia. DIRECTOR NURSING SERVICE Acute encephalopathy, resolved Multi-factorial due to hyponatremia, pain, trazadone/gabapentin. Head CT negative for acute hemorrhage, mass effect or midline shift. Trazodone was recently doubled in dose. Patient also on ambien for insomnia. She was recently started on gabapentin for cervical stenosis with radiculopathy. All held during this admission. Mentation improved with sodium correction and patient is back to baseline. CVS Elevated troponin No acute chest pain. EKG shows sinus tacycardia. Elevated troponin at 0.19, downtrending. Previous echo shows mildly elevated RSVP and EF of 55% with grade 1 diastolic dysfunction. Patient without significant stressors or indication for a type II troponinemia. Will need outpatient follow up with cardiology. History of HTN Patient normotensive. 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 Patient then had polyuria and sodium overcorrected, so she was started on d5W and desmopressin. She was restarted on 3% hypertonic saline and sodium tablets, and sodium is slowly improving. Hypertonic saline discontinued. - Na Q4H checks - Sodium tablets - Nephrology Dr. aRyo following GI No acute problems Endo No acute problems Heme No acute problems ID No acute prblems MSK Recent L hip fracture repair Hip CT shows left hip bipolar hemiarthroplasty with satisfactory alignment. Continue aspirin 81mg for DVT prophylaxis Health Maintenance Disposition: Admit to ICU for severe hypoosmolar hyponatremia, improving. Anticipate downgrade to Tele today. Diet and fluids: dysphagia pureed DVT prophylaxis: aspirin, lovenox GI prophylaxis: none Lines: PIV, Vicente CODE STATUS: FULL I have reviewed and discussed the patient's care with my attending, Dr. Gisell Welch MD PGY-3
[2025-03-11] MEDS: SODIUM CHLORIDE 1 GM TABLET PO (08:22)
[2025-03-11] MEDS: ASPIRIN EC 81 MG TABEC PO (08:22)
[2025-03-11] MEDS: ENOXAPARIN SOD INJ 40 MG/0.4 ML SYRINGE SC (08:22)
[2025-03-11] MEDS: SENNA TABLET 1 TAB PO (08:26)
--- NOTE | 2025-03-11 11:17 | PC.SS ---
Update: Patient on room air. P.O. feeding. Vitals are stable. Patient is alert/oriented. Patient to be downgraded from ICU.
--- NOTE | 2025-03-11 13:19 | ESPR_ITS ---
<Statement entered by Kathrin Thompson MD - 03/12/25 17:53> Patient was seen and examined at bedside, agree on the assessment and plan on this note. - Patient's plan and care discussed with my attending, Dr. Fredy Thompson MD Internal Medicine PGY-2 Documentation for date of: 03/11/25 Subjective Subjective Interval history: Patient was seen and examined at bedside this AM. No acute exents overnight. Patient tolerating diet, adequate urine output and mentation is at baseline. Patient denies any dizziness, lightheadedness, chest pain. Sodium 125, goal of 130 in the next 24 hours. Will increase sodium checks to Q5 hourly and fluid restriction to 1200 cc. Ordered PT evaluation for half-way facility. Exam Vital Signs Temp Pulse Resp BP Pulse Ox O2 Del Method 98.1 F 80 22 H 138/84 H 98 Room Air 03/11/25 08:00 03/11/25 11:00 03/11/25 11:00 03/11/25 11:00 03/11/25 11:00 03/10/25 16:00 Narrative Exam Constitutional Alert, oriented x 3 and comfortable. Elderly female HEENT Vision grossly intact. Patent nares. Trachea midline Respiratory Chest normal on inspection and clear auscultation bilaterally Cardiovascular S1 and S2 audible, RRR. No murmurs carotid bruit. No gross JVD. Abdominal Soft and non tender to palpation in all quadrants. BS + Genitourinary No bladder tenderness, no flank pain. Normal to palpation Musculoskeletal Extremities tone within normal limits. No LE edema. Right leg externally rotated and in a boot Neurological CN II - XII grossly intact. Extremity motor and sensation grossly intact. Skin Warm, dry and intact. No apparent lesions. Psychiatric Patient has good affect, is cooperative Objective Labs 03/12/25 04:40 03/12/25 08:34 Labs: Laboratory Results - last 24 hr 03/10/25 03/10/25 03/10/25 13:16 17:05 18:53 WBC RBC Hgb Hct MCV MCH MCHC RDW Std Deviation Plt Count Neut % (Auto) Lymph % (Auto) [place] % (Auto) Eos % (Auto) Baso % (Auto) Neut # (Auto) Lymph # (Auto) [place] # (Auto) Eos # (Auto) Baso # (Auto) Immature Gran # (Auto) Absolute Nucleated RBC Immature Gran % Nucleated RBC % Sodium 124 L 123 L 122 L Potassium Chloride Carbon Dioxide Anion Gap BUN Creatinine Estim Creat Clear Calc eGFR BUN/Creatinine Ratio Glucose Calculated Osmolality Calcium Corrected Calcium Phosphorus Magnesium Total Bilirubin AST ALT Alkaline Phosphatase Total Protein Albumin Globulin Albumin/Globulin Ratio 03/10/25 03/11/25 03/11/25 20:58 01:19 03:02 WBC RBC Hgb Hct MCV MCH MCHC RDW Std Deviation Plt Count Neut % (Auto) Lymph % (Auto) [place] % (Auto) Eos % (Auto) Baso % (Auto) Neut # (Auto) Lymph # (Auto) [place] # (Auto) Eos # (Auto) Baso # (Auto) Immature Gran # (Auto) Absolute Nucleated RBC Immature Gran % Nucleated RBC % Sodium 122 L 124 L 124 L Potassium Chloride Carbon Dioxide Anion Gap BUN Creatinine Estim Creat Clear Calc eGFR BUN/Creatinine Ratio Glucose Calculated Osmolality Calcium Corrected Calcium Phosphorus Magnesium Total Bilirubin AST ALT Alkaline Phosphatase Total Protein Albumin Globulin Albumin/Globulin Ratio 03/11/25 04:57 WBC 5.3 RBC 3.42 L Hgb 11.4 L Hct 31.1 L MCV 91 MCH 33.3 MCHC 36.7 RDW Std Deviation 39.7 Plt Count 161 Neut % (Auto) 67 Lymph % (Auto) 20 [place] % (Auto) 10 Eos % (Auto) 2 Baso % (Auto) 0 Neut # (Auto) 3.6 Lymph # (Auto) 1.1 [place] # (Auto) 0.5 Eos # (Auto) 0.1 Baso # (Auto) 0.0 Immature Gran # (Auto) 0.02 H Absolute Nucleated RBC 0.00 Immature Gran % 0 Nucleated RBC % 0 Sodium 125 L Potassium 3.9 Chloride 94 L Carbon Dioxide 23.2 Anion Gap 8 BUN 8 L Creatinine 0.5 L Estim Creat Clear Calc 82.8 eGFR > 60 BUN/Creatinine Ratio 16 Glucose 105 Calculated Osmolality 249 L Calcium 8.2 L Corrected Calcium 8.7 Phosphorus 2.8 Magnesium 1.8 Total Bilirubin 0.6 AST 18 ALT 12 Alkaline Phosphatase 105 Total Protein 5.3 L Albumin 3.4 Globulin 1.9 L Albumin/Globulin Ratio 1.8 ABG Interpretation ABG results: 03/09/25 08:25 VBG pH 7.42 VBG pCO2 40 VBG pO2 23 VBG Base Excess 1 Quality Measures Quality Measures VTE prophylaxis Advance care planning discussed with:: patient and child Assessment & Plan Assessment Current Active Medications: Generic Name Dose Route Start Last Admin Trade Name Freq PRN Reason Stop Dose Admin Acetaminophen 650 mg 03/09/25 11:27 03/09/25 11:38 Acetaminophen 325 Mg Tablet PO 04/08/25 11:26 650 mg Q4HR PRN Administration Pain 1-3 Aspirin 81 mg 03/10/25 09:00 03/11/25 08:22 Aspirin Ec 81 Mg Tabec PO 04/09/25 08:59 81 mg QDAY CASSANDRA Administration Enoxaparin Sodium 40 mg 03/11/25 09:00 03/11/25 08:22 Enoxaparin Sod Inj 40 Mg/0.4 Ml Syringe SC 03/25/25 08:59 40 mg QDAY CASSANDRA Administration Ondansetron HCl 4 mg 03/09/25 10:28 Ondansetron Inj 2 Mg/Ml Inj 2 Ml IV 04/08/25 10:27 Q6H PRN NAUSEA OR VOMITING Protocol Sennosides 1 tab 03/09/25 10:30 03/11/25 08:26 Senna Tablet PO 04/08/25 10:29 1 tab QDAY CASSANDRA Administration Protocol Sodium Chloride 1 gm 03/11/25 09:00 03/11/25 08:22 Sodium Chloride 1 Gm Tablet PO 04/10/25 08:59 1 gm QDAY CASSANDRA Administration Plan Patient is a 85 year old female with a past medical history significant for chronic SIADH, primary hypertension, spinal stenosis and polymyalgia rheumatica presenting with confusion and admitted to the ICU for symptomatic hypoosmolar hyponatremia. Acute metabolic encephalopathy?resolved Symptomatic acute on chronic hyponatremia?resolving Patient presented with acute confusion and found to have Na114 NA 124 this a.m. Goal of 130 within next 24 hours. Plan: ? Increase fluid restriction to 1200 cc/day ? Sodium checks Q5 hourly ? NaCl 1 tab p.o. daily as per nephrology recommendations ? Physical therapy evaluation for SNF ordered ? Nephrology, Dr Nash consulted. Appreciate recommendations Troponinemia?resolving Troponin 0.194 down trended to 0.061. No need to further trend Primary hypertension BP 135/76 Home medication carvedilol, spironolactone and valsartan Plan: ? Antihypertensives on hold for now due to low blood pressure Left hip fracture s/p hemiarthroplasty Right bimalleolar ankle fracture - in air boot Plan: ? Lovenox 40 Mg SC per day for DVT prophylaxis ? Aspirin 81 Mg p.o. daily for DVT prophylaxis Insomnia Home medication zolpidem 5 Mg p.o. at bedtime as needed Plan: ? Nonbenzodiazepine hypnotic on hold for now due to history of acute encephalopathy ? Will start on melatonin 6 Mg p.o. at bedtime Health maintenance: Disposition: Sodium checks Q5 hourly. Diet: Dysphagia 1. Close 100 cc/day fluid restriction Lines: pIVs GI Prophylaxis: Not indicated Thrombo Prophylaxis: Lovenox Code status: FULL CODE Plan of care discussed with Attending Dr. Daniel and PGY 2 Dr. Donna Bustillo MD PGY 1 Disclaimer: This note was dictated by speech recognition. Minor errors in marriage and family counselor may be present due to voice recognition software. Attending Provider Attestation/Addendum I have examined the patient, reviewed labs and imaging findings, discussed the case with the resident(s), and reviewed entered orders. I agree with the plan of care as outlined in this note, with these additional summaries/recommendations: Patient and family seen at bedside. No acute overnight events. Patient's mentation appears to be improving and trending back towards baseline mental status. Patient is now downgraded back to medical team for severe hyponatremia. Patient was admitted to the ICU for hypotonic hypochloremic hyponatremia. Patient does appear to have some mild chronic hyponatremia at baseline with sodium trending in the 130-133 range. On admission sodium was 118 and then 114 and thus admitted to the ICU. Etiology for hyponatremia likely multifactorial with the biggest contributor being pain/SIADH with likely less contribution from trazodone/fluid intake. Nephrology was consulted and following. Sodium has roughly improved from 124 to 128 which is appropriate correction. We will continue fluid restriction and sodium chloride tablet in AM. Continue to trend sodium. Patient had recent left hip fracture repair and also acute right ankle bimalleolar fractures. Currently has walking boot and we will order physical therapy. Pain appears controlled at this time. Continue DVT prophylaxis. As needed low-dose Ativan ordered in case agitation develops. Hold home trazodone. We will continue to monitor blood pressure and reinstitute antihypertensives as needed. Patient was also found to have elevated troponins on admission which peaked and have now down trended. No cardiac complaints at this time. No acute ST changes indicative of acute ischemia. We will continue to monitor for now. Patient and family updated on the plan and in agreement. All questions answered to satisfaction. Please see residents note for additional details of management. Dr. Fredy MD
[2025-03-11 14:17] LABS: Sodium 128 mMol/L (136-145)
[2025-03-11 17:52] LABS: Sodium 124 mMol/L (136-145)
[2025-03-11] MEDS: ACETAMINOPHEN 325 MG TABLET 650 MG PO (20:56)
[2025-03-11] MEDS: MELATONIN 3 MG TABLET 6 MG PO (20:58)
[2025-03-11] MEDS: traZODone HCL 50 MG TABLET 25 MG PO (23:22)
[2025-03-12] VITALS (53 sets, daily range): BP systolic 139; BP diastolic 73; PULSE 57–78; RESP 11–98; TEMP 36.2; O2SAT 93–99; BMI 28.0
[2025-03-12 00:16] LABS: Sodium 127 mMol/L (136-145)
[2025-03-12 05:41] LABS: Basophils % (Auto) 0 % (0-2.5); Eosinophils # (Auto) 0.1 Thou/mm3 (0.0-0.5); Eosinophils % (Auto) 2 % (0-10); Hemoglobin 11.5 g/dL (12.0-16.0); Immature Granulocytes % (Auto) 0 % (0-0); Immature Granulocytes Auto 0.01 Thou/mm3 (0.00-0.00); Lymphocytes # (Auto) 1.1 Thou/mm3 (1.0-4.8); Lymphocytes % (Auto) 23 % (10-50); Mean Corpuscular HGB Conc 35.9 g/dl (31.0-37.0); Mean Corpuscular Volume 92 fL (80-100); Monocytes # (Auto) 0.4 Thou/mm3 (0.0-0.8); Monocytes % (Auto) 9 % (0-12); Neutrophils % (Auto) 65 % (37-80); Nucleated Red Blood Cell % 0 /100 WBC (0); Platelet Count 165 Thou/mm3 (140-440); RDW Standard Deviation 40.3 fL (36.4-46.3); Red Blood Count 3.48 Miln/mm3 (4.00-5.20); White Blood Count 4.6 Thou/mm3 (3.6-11.0)
[2025-03-12 06:07] LABS: Alanine Aminotransferase 13 U/L (10-49); Albumin, Serum 3.5 gm/dL (3.4-4.8); Albumin/Globulin Ratio 1.8 (1.2-2.2); Alkaline Phosphatase 106 U/L (46-116); Anion Gap 9 (7-16); Aspartate Amino Transferase 15 U/L (0-34); BUN/Creatinine Ratio 20 Ratio (12-20); Bilirubin,Total 0.6 mg/dL (0.3-1.2); Blood Urea Nitrogen 10 mg/dL (9-23); Calcium 8.5 mg/dL (8.3-10.6); Calcium (Corrected) 8.9 mg/dL (8.5-10.1); Carbon Dioxide 25.2 mMol/L (20.0-31.0); Chloride 96 mMol/L (98-107); Creatinine (Component) 0.5 mg/dL (0.6-1.3); Estimated Creatinine Clearance 82.8 mL/min (>60); Globulin 1.9 gm/dL (2.3-3.5); Glucose 101 mg/dL (74-106); Osmolality,Calculated 259 (275-295); Potassium 4.2 mMol/L (3.4-5.1); Sodium 130 mMol/L (136-145); Total Protein 5.4 gm/dL (5.7-8.2); eGFR > 60 See Note
--- NOTE | 2025-03-12 07:52 | ESDS_ITS ---
<Statement entered by Kathrin Thompson MD - 03/13/25 16:37> Patient was seen and examined at bedside. Agree with assessment and plan at this time - Patient's plan and care discussed with my attending, Dr. Fredy Thompson MD Internal Medicine PGY-2 Planned Discharge Date 03/12/25 DS: Providers Provider Date of admission: 03/09/25 10:28 Primary care physician: Lawanda Rayo MD Admitting Provider: Reyes Tinsley MD Attending Provider on Admission: Sukh Jameson MD Consults: 03/11/25 14:32 Referral Physical Therapy Urgent Comment: Physician Instructions: Instructions: Right ankle fracture. Currently in airboot Attending Provider on DC: Zachary Daniel MD Discharging Provider: Terry Bustillo MD DS: Diagnosis Problem List Completed Was Problem List Reviewed/Reconciled?: Yes Hospital Course Hospital Course Hospital course: Patient is a 85 year old female with a past medical history significant for chronic SIADH, primary hypertension, spinal stenosis and polymyalgia rheumatica presenting with confusion and admitted to the ICU for symptomatic hypoosmolar hyponatremia. For her symptomatic acute on chronic hyponatremia. Patient was admitted to ICU and treated with hypertonic saline after which sodium improved to 120 from 114 on admission. She was subsequently started on 1 L/day fluid restriction and sodium chloride 1 g p.o. per day tablets. Sodium improved to 130 within the next 24 hours and patient's acute encephalopathy has resolved. Patient's left hip fracture s/p hemiarthroplasty and a right bimalleolar ankle fracture and a boot continue physical therapy at SNF. All patient's labs are now returning to her baseline. Patient clinically stable and fit for discharge to SNF. Discharge diagnoses: 1. Acute metabolic encephalopathy?resolved 2. Symptomatic acute on chronic hyponatremia?resolving 3. Troponinemia?resolving 4. Primary hypertension 5. Left hip fracture s/p hemiarthroplasty 6. Right bimalleolar ankle fracture?unable to 7. Insomnia Discharge plan: - You have been started on salt tablets. Take one tablet once a day. - You have been started on an antibiotic for your urine infection. Take one tablete twice a day for the next four days. ? You have been started on medication lorazepam. Take 1 tablet at night as needed for agitation. - You must not drink more than 1.2 litres of water per day including fluids in your diet. - We have changed your Valsartan dose to 40mg. Take one tablet once a day ? We have put a hold on your medication spironolactone, buspirone, trazodone, carvidelol and zolpidem. Do not use until you see your PCP. ? Continue your rest of medication as listed below. - We held the cavidelol due to the low heart rate. ? [facility] your [facility]. - Follow up with your primary care physician within 1 week of discharge. If you do not have a primary care physician, please follow up with the [facility] ([phone]) ? If you experience any new, worsening or persistent symptoms either call your primary doctor, or dial 911 or present to the emergency department. We are grateful to be able to participate in Mrs. Vences's care. We wish her the best. Plan of care discussed with Attending Dr. Daniel and PGY 2 Dr. Donna Bustillo MD PGY 1 Disclaimer: This note was dictated by speech recognition. Minor errors in door person may be present due to voice recognition software. Time Spent with Patient Time attestation: Total time spent providing and/or coordinating discharge services: Time spent: Greater than 30 minutes (41) Exam Vital Signs Temp Pulse Resp BP Pulse Ox O2 Del Method 97.2 F 62 16 139/73 H 97 Room Air 03/12/25 04:05 03/12/25 06:17 03/12/25 06:17 03/12/25 04:05 03/12/25 04:05 03/10/25 16:00 Narrative Exam Constitutional Alert, oriented x 3 and comfortable. Elderly female HEENT Vision grossly intact. Patent nares. Trachea midline Respiratory Chest normal on inspection and clear auscultation bilaterally Cardiovascular S1 and S2 audible, RRR. No murmurs carotid bruit. No gross JVD. Abdominal Soft and non tender to palpation in all quadrants. BS + Genitourinary No bladder tenderness, no flank pain. Normal to palpation Musculoskeletal Extremities tone within normal limits. No LE edema. Right leg externally rotated and in a boot Neurological CN II - XII grossly intact. Extremity motor and sensation grossly intact. Skin Warm, dry and intact. No apparent lesions. Psychiatric Patient has good affect, is cooperative Discharge Plan Plan Patient Disposition: Xfer Skilled Nsg Fac (SNF) Patient condition on transfer: Stable and Benefits outweigh risks Care Plan Goals: - You have been started on salt tablets. Take one tablet once a day. - You have been started on an antibiotic for your urine infection. Take one tablete twice a day for the next four days. ? You have been started on medication lorazepam. Take 1 tablet at night as needed for agitation. - You must not drink more than 1.2 litres of water per day including fluids in your diet. - We have changed your Valsartan dose to 40mg. Take one tablet once a day ? We have put a hold on your medication spironolactone, buspirone, trazodone, carvidelol and zolpidem. Do not use until you see your PCP. ? Continue your rest of medication as listed below. - We held the cavidelol due to the low heart rate. ? [facility] your [facility]. - Follow up with your primary care physician within 1 week of discharge. If you do not have a primary care physician, please follow up with the [facility] ([phone]) ? If you experience any new, worsening or persistent symptoms either call your primary doctor, or dial 911 or present to the emergency department. Prescriptions/Referrals Prescriptions/Med Rec: New sodium chloride 1,000 mg Tablet,Soluble 1,000 mg PO QDAY 30 Days Qty: 30 0RF nitrofurantoin 50 mg/5 mL suspension 100 mg PO BID 4 Days Qty: 80 0RF Rx Instructions: must administer with a meal/food valsartan 40 mg tablet 40 mg PO QDAY 30 Days Qty: 30 1RF lorazepam 0.5 mg tablet 0.5 mg PO .HS PRN (Reason: agitation) 14 Days Qty: 14 0RF Continued gabapentin 100 mg capsule 100 mg PO TID melatonin 5 mg capsule 5 mg PO Q24H PRN (Reason: sleep) magnesium hydroxide [Milk of Magnesia] 400 mg/5 mL suspension 1,200 mg PO Q3D PRN (Reason: constipation) naproxen 250 mg tablet 250 mg PO TID acetaminophen [Acetaminophen Extra Strength] 500 mg tablet 500 mg PO QID PRN (Reason: pain) cholecalciferol (vitamin D3) 125 mcg (5,000 unit) capsule 5,000 unit PO BID aspirin 81 mg tablet,chewable 81 mg PO QDAY bisacodyl [Dulcolax (bisacodyl)] 10 mg suppository 10 mg TX QDAY PRN (Reason: constipation) Rx Instructions: FOR NO BM WITHIN 8 HOURS Enema 19-7 gram/118 mL enema 118 ml TX QDAY PRN (Reason: constipation) fluticasone furoate 27.5 mcg/actuation spray,suspension 2 spray intranasal HS Rx Instructions: into each nostril omeprazole 20 mg capsule,delayed release(DR/EC) 20 mg PO DAILY Metamucil Sugar-Free (aspart) 3.4 gram/5.8 gram powder 1 ea PO HS PRN (Reason: Constipation) Patient Comments: As needed docusate sodium [Colace] 100 mg capsule 100 mg PO QDAY Qty: 30 0RF Held zolpidem [Ambien] 5 mg tablet 5 mg PO HS PRN (Reason: SLEEP) Hold Instructions: Hold until you see your PCP buspirone 5 mg tablet 5 mg PO BID Hold Instructions: Hold until you see your PCP carvedilol 3.125 mg tablet 3.125 mg PO BID Hold Instructions: Resume on 03/23/25. Resume after clearance from your PCP spironolactone 25 mg tablet 25 mg PO DAILY Hold Instructions: Hold until you see your PCP trazodone 50 mg tablet 25 mg PO HS PRN (Reason: Insomnia) Hold Instructions: Hold until you see your PCP Patient Comments: Half to whole tab po qhs prn Discontinued valsartan [Diovan] 160 mg tablet 160 mg PO .PM Referrals: Lawanda Rayo MD [Primary Care Provider] - Patient/Caregiver Discharge Instructions Discharge Activity: as per physical therapy Education Materials: Treating Insomnia, Hyponatremia Dc Print Language: Syriac Stand Alone Forms: Joana Award Info., Patient Portal Info Letter Discharge Order Discharge Orders: Discharge (Routine); Ordered 03/12/25 Ordered By: Kathrin Thompson Quality Discharge Quality Measures VTE prophylaxis Attestestation MD Attestation I have examined the patient, reviewed labs and imaging findings, discussed the case with the resident(s), and reviewed entered orders. I agree with the plan of care as outlined in this note. Time Spent: [address] Fredy MD
--- NOTE | 2025-03-12 08:15 | PC.SS ---
TRU obtained, transport arranged for 1200 via [place]. Patient, MALU Bunch, and Dr. Vences informed of ETA 1200 for transport.
[2025-03-12] MEDS: SENNA TABLET 1 TAB PO (08:32)
[2025-03-12] MEDS: ASPIRIN EC 81 MG TABEC PO (08:32)
[2025-03-12] MEDS: cefTRIAXone/D5w 1gm IV premix 1 GM/50 ML BAG IV (08:32)
[2025-03-12] MEDS: ENOXAPARIN SOD INJ 40 MG/0.4 ML SYRINGE SC (08:33)
[2025-03-12] MEDS: SODIUM CHLORIDE 1 GM TABLET PO (08:33)
[2025-03-12 09:02] LABS: Sodium 130 mMol/L (136-145)
--- NOTE | 2025-03-12 16:58 | PC.NURSE ---
[facility]25 from [phone].
== END 2025-03-12 12:25 | disposition skilled nursing facility (03) | DRG 640 ==
LOC: SERX 10:17 → SERHOLD 10:56 → S2SX 11:20 → S3NX 03-12 07:01
PROVIDERS: Student in an Organized Health Care Education/Training Program; Admitting Provider Internal Medicine; Emergency Provider Emergency Medicine; PCP Internal Medicine; Visit Provider Internal Medicine
DX: E87.1 Hypo-osmolality and hyponatremia (principal); G93.41 Metabolic encephalopathy; J18.9 Pneumonia, unspecified organism; I10 Essential (primary) hypertension; R79.89 Other specified abnormal findings of blood chemistry; M48.02 Spinal stenosis, cervical region; E86.0 Dehydration; G47.00 Insomnia, unspecified; E87.8 Other disorders of electrolyte and fluid balance, not elsewhere classified; M35.3 Polymyalgia rheumatica; M54.12 Radiculopathy, cervical region; Z63.4 Disappearance and death of family member; Z79.82 Long term (current) use of aspirin; Z87.440 Personal history of urinary (tract) infections; Z90.710 Acquired absence of both cervix and uterus; Z91.81 History of falling; Z88.5 Allergy status to narcotic agent; Z96.642 Presence of left artificial hip joint; R63.1 Polydipsia
CPT/HCPCS: 36415; 70450; 71045; 73502; 80053; 80307; 81001; 82140; 82436; 82803; 83605; 83735; 84100; 84133; 84145; 84295; 84300; 84484; 85025; 85610; 85730; 87040; 87077; 87081; 87086; 87186; 93005; 93971; 96365; 96367; 96375; 99285; J0456; J0696; J1644; J1650; J1885; J2597; J3475; J3490; J7030; J7040; J7050; J7070; J7131; A9270

== ENCOUNTER → 2025-05-03 | Outpatient (CLI) | payer MEDICARE, SELFPAY ==
[2025-05-03 12:48] LABS: Collection Type, Urine Clean Catch
[2025-05-03 13:08] LABS: Basophils # (Auto) 0.0 Thou/mm3 (0.0-0.2); Basophils % (Auto) 1 % (0-2.5); Eosinophils # (Auto) 0.1 Thou/mm3 (0.0-0.5); Eosinophils % (Auto) 2 % (0-10); Hematocrit 35.3 % (36.0-46.0); Hemoglobin 12.1 g/dL (12.0-16.0); Immature Granulocytes Auto 0.01 Thou/mm3 (0.00-0.00); Lymphocytes # (Auto) 1.1 Thou/mm3 (1.0-4.8); Lymphocytes % (Auto) 20 % (10-50); Mean Corpuscular HGB Conc 34.3 g/dl (31.0-37.0); Mean Corpuscular Hemoglobin 33.0 pg (25.0-35.0); Mean Corpuscular Volume 96 fL (80-100); Monocytes # (Auto) 0.5 Thou/mm3 (0.0-0.8); Monocytes % (Auto) 9 % (0-12); Neutrophils # (Auto) 3.6 Thou/mm3 (1.8-7.7); Neutrophils % (Auto) 69 % (37-80); Nucleated Red Blood Cell # 0.00 Thou/mm3 (0.00-0.00); Nucleated Red Blood Cell % 0 /100 WBC (0); Platelet Count 208 Thou/mm3 (140-440); RDW Standard Deviation 42.9 fL (36.4-46.3); Red Blood Count 3.67 Miln/mm3 (4.00-5.20); White Blood Count 5.3 Thou/mm3 (3.6-11.0)
[2025-05-03 13:23] LABS: Bacteria,Urine Rare; Bilirubin,Urine Negative (Negative); Blood,Urine Negative (Negative); Clarity,Urine Clear (Clear/Hazy); Color,Urine Lt-Yellow (Lt Yel-Yel); Glucose, Urine Negative (Negative); Ketones,Urine Negative (Negative); Leukocyte Esterase,Urine Negative (Negative); Nitrite,Urine Negative (Negative); PH,Urine 6.5 (5.0-7.0); Protein,Urine Negative (Neg - Trace); RBC,Urine 1 /hpf (0-3); Specific Gravity,Urine 1.012 (1.001-1.035); Squamous Epithelial Cell,Urine 8 /hpf (0-5); Urobilinogen,Urine Negative mg/dL (0.0-1.0); WBC,Urine 1 /hpf (0-5)
[2025-05-03 13:33] LABS: Alanine Aminotransferase 8 U/L (10-49); Albumin, Serum 3.9 gm/dL (3.4-4.8); Albumin/Globulin Ratio 2.0 (1.2-2.2); Alkaline Phosphatase 102 U/L (46-116); Anion Gap 8 (7-16); Aspartate Amino Transferase 16 U/L (0-34); BUN/Creatinine Ratio 13 Ratio (12-20); Bilirubin,Total 0.4 mg/dL (0.3-1.2); Blood Urea Nitrogen 9 mg/dL (9-23); Calcium 9.0 mg/dL (8.3-10.6); Calcium (Corrected) 9.1 mg/dL (8.5-10.1); Carbon Dioxide 29.2 mMol/L (20.0-31.0); Chloride 99 mMol/L (98-107); Creatinine (Component) 0.7 mg/dL (0.6-1.3); Globulin 2.0 gm/dL (2.3-3.5); Glucose 99 mg/dL (74-106); Osmolality,Calculated 270 (275-295); Potassium 3.8 mMol/L (3.4-5.1); Sodium 136 mMol/L (136-145); Total Protein 5.9 gm/dL (5.7-8.2); Uric Acid 3.3 mg/dL (3.1-7.8); eGFR > 60 See Note
== END | disposition home or self-care (01) ==
LOC: COPL 12:06
PROVIDERS: PCP Internal Medicine; Referring Provider Internal Medicine; Visit Provider Internal Medicine
DX: I10 Essential (primary) hypertension (principal); E87.1 Hypo-osmolality and hyponatremia
CPT/HCPCS: 36415; 80053; 81001; 84550; 85025

== ENCOUNTER 2025-05-24 07:33 | Observation (INO) | payer MEDICARE, SELFPAY ==
[2025-05-24] VITALS (9 sets, daily range): BP systolic 109–157; BP diastolic 60–91; PULSE 73–99; RESP 18–23; TEMP 36.4–37.7; O2SAT 96–100; BMI 26.8
--- NOTE | 2025-05-24 | XR_ITS ---
Examination: MRI of brain without intravenous contrast. MRI brain with intravenous contrast. Date and time of exam:May 24, 2025, 1257 hours INDICATIONS: Seizure episode today and Technique: Multiple axial and sagittal images of the brain to been obtained. Siemens high-resolution 1.52 Harper short bore scanner utilized. Sagittal sections, T1 weighted images, TR 500, TE 14, are performed. Axial sections proton-density and T2-weighted images have been obtained. Inversion recovery axial images, TR 9260, TE 111, TR 2500. Diffusion weighted images, axial sections, TR 4800, TE 128, B value 1000. Axial sections, ADC map, TR 4800, TE 128. Axial and coronal images were also obtained post 14 cc gadolinium administered intravenously. Findings:: Enlargement of the sella turcica is not present. The optic chiasm and infundibular stalk are not remarkable. There is no localized enlargement of the medulla or justo. Fourth ventricle and cerebellar tonsils appear normal in position. No subacute area of hemorrhage density is seen. Fourth ventricle is midline. Mass in the cerebellopontine angle region is not evident. 7th and 8th nerve complexes exhibit symmetry Globes are symmetrical Orbital musculature including medial lateral rectus muscles do not exhibit abnormality Increased white matter signal is prominent Effacement of the cortical sulcal markings is not identified. Mass effect upon the ventricular system is not identified. Diffusion-weighted images demonstrate no focus of restricted diffusion Contrast images demonstrate no abnormal cerebellar or cerebral enhancement Impression: Negative for acute hemorrhage mass effect or midline shift No acute infarct Prominent chronic microvascular white matter change No abnormal enhancing cerebellar or cerebral lesions
--- NOTE | 2025-05-24 07:41 | XR_ITS ---
Examination: AP chest single view Technique one AP portable upright chest single view Date and time: May 24, 2025, 0805 hours INDICATIONS: Dizziness chest pain beginning 2 days ago. FINDINGS: Normal heart size The lungs are clear. Significant osteopenia IMPRESSION: No active disease
--- NOTE | 2025-05-24 07:41 | EKG_ITS ---
[facility] Test Date: 2025-05-24 Pat Name: TED PATRICIO Department: Room: - Gender: Female Block Operator: : [id number] Requested By: Tess Garza Order Number: [id number] Reading MD: Tess Garza Measurements Intervals [place] Rate: 88 P: 44 SD: 159 QRS: -17 QRSD: 105 T: 103 QT: 357 QTc: 434 Interpretive Statements SINUS RHYTHM LEFT VENTRICULAR HYPERTROPHY AND ST-T CHANGE [VOLTAGE CRITERIA PLUS ST/T ABNORMALITY] Compared to ECG 03/09/2025 07:42:07 Left ventricular hypertrophy now present ST (T wave) deviation now present Sinus tachycardia no longer present Myocardial infarct finding no longer present /store/S0/[id number]
--- NOTE | 2025-05-24 08:10 | XR_ITS ---
Examination: CT brain head without contrast. 2-D sagittal coronal reconstructions Date and time of exam:May 24, 2025 0842 hours COMPARISON: March 09, 2025 INDICATIONS: Altered mental status today CTDI: vol (mGy):48.8 DLP: (mGycm):965 Technique: Multiple CT axial sections of the brain have been obtained, 5 mm slice thickness. Contrast has not been administered. 2-D sagittal, coronal reconstructions have been obtained Low dose protocols were performed. One or more of the following dose reduction techniques were used; automated exposure control, adjustment of the mA and/or KV according to patient size, use of iterative reconstruction technique. Findings: No significant ventricular enlargement. Intra-axial or extra-axial hemorrhage density is not seen. No mass effect or midline shift Basal cisterns are not remarkable. Fourth ventricle is midline. Cranial vault intact. Impression: Negative for acute hemorrhage, mass effect or midline shift Advise clinical correlation follow-up accordingly
[2025-05-24 08:13] LABS: Lactate (Lactic Acid) 1.7 mMol/L (0.4-2.0)
[2025-05-24 08:17] LABS: Basophils # (Auto) 0.0 Thou/mm3 (0.0-0.2); Basophils % (Auto) 0 % (0-2.5); Eosinophils # (Auto) 0.1 Thou/mm3 (0.0-0.5); Eosinophils % (Auto) 1 % (0-10); Hematocrit 37.7 % (36.0-46.0); Hemoglobin 12.8 g/dL (12.0-16.0); Immature Granulocytes Auto 0.02 Thou/mm3 (0.00-0.00); Lymphocytes # (Auto) 0.4 Thou/mm3 (1.0-4.8); Lymphocytes % (Auto) 4 % (10-50); Mean Corpuscular HGB Conc 34.0 g/dl (31.0-37.0); Mean Corpuscular Hemoglobin 32.2 pg (25.0-35.0); Mean Corpuscular Volume 95 fL (80-100); Monocytes # (Auto) 0.2 Thou/mm3 (0.0-0.8); Monocytes % (Auto) 3 % (0-12); Neutrophils # (Auto) 8.2 Thou/mm3 (1.8-7.7); Neutrophils % (Auto) 92 % (37-80); Nucleated Red Blood Cell # 0.00 Thou/mm3 (0.00-0.00); Nucleated Red Blood Cell % 0 /100 WBC (0); Platelet Count 177 Thou/mm3 (140-440); RDW Standard Deviation 41.7 fL (36.4-46.3); Red Blood Count 3.98 Miln/mm3 (4.00-5.20); White Blood Count 8.9 Thou/mm3 (3.6-11.0)
[2025-05-24 08:37] LABS: INR 1.0 (0.9-1.3); Partial Thromboplastin Time 25.1 Seconds (22.0-36.0); Prothrombin Time 11.2 Seconds (9.0-12.2)
[2025-05-24 08:38] LABS: B-Type Natriuretic Peptide 46 pg/mL (0-100)
[2025-05-24 08:44] LABS: Collection Type, Urine Clean Catch
[2025-05-24 08:52] LABS: Alanine Aminotransferase < 7 U/L (10-49); Albumin, Serum 4.1 gm/dL (3.4-4.8); Albumin/Globulin Ratio 1.9 (1.2-2.2); Alkaline Phosphatase 112 U/L (46-116); Anion Gap 8 (7-16); Aspartate Amino Transferase 13 U/L (0-34); BUN/Creatinine Ratio 13 Ratio (12-20); Bilirubin,Total 0.7 mg/dL (0.3-1.2); Blood Urea Nitrogen 10 mg/dL (9-23); Calcium 9.2 mg/dL (8.3-10.6); Calcium (Corrected) 9.2 mg/dL (8.5-10.1); Carbon Dioxide 26.0 mMol/L (20.0-31.0); Chloride 100 mMol/L (98-107); Creatinine (Component) 0.8 mg/dL (0.6-1.3); Estimated Creatinine Clearance 52.4 mL/min (>60); Globulin 2.2 gm/dL (2.3-3.5); Glucose 176 mg/dL (74-106); Lipase 30 U/L (12-53); Magnesium 1.3 mg/dL (1.6-2.6); Osmolality,Calculated 271 (275-295); Potassium 3.5 mMol/L (3.4-5.1); Procalcitonin 0.18 ng/ml (0.0-0.49); Sodium 134 mMol/L (136-145); Total Protein 6.3 gm/dL (5.7-8.2); Troponin I < 0.020 ng/mL (0.0-0.045); eGFR > 60 See Note
--- NOTE | 2025-05-24 08:52 | PD.EDAMS ---
Altered Mental Status RME/HPI General Chief Complaint: Altered Mental Status Stated Complaint: AMS Time Seen by Provider: 05/24/25 07:41 Arrival date/time: 05/24/25 07:33 RME / HPI RME / HPI narrative: 85 year old female patient with history of hypertension, spinal stenosis, hyponatremia, UTIs presents to the ED BIBA from home for evaluation of altered mental status today. Per son, the patient was at her usual state of health this morning, got herself ready and was eating breakfast when she suddenly began to feel dizzy and unwell. Son states patient called out for her [id number] who witnessed the patient to have an absent stare and not responding to her name. No shaking witnessed. After several minutes she responded to sternal rub and cognition gradually improved. Per medics report, on scene patient was initially unresponsive to name and after several minutes she began answering questions. While in the ED, patient states while eating breakfast she suddenly felt dizzy and called out for help. No other complaints reported. Denies recent illness, fevers, chills, sweats. Denies chest pain, cough, shortness of breath. Denies nausea, vomiting, diarrhea, constipation. Denies dysuria, urinary frequency and urgency. Son reports similar presentations in the past that were due to hyponatremia or UTIs. States he noticed a slight change in cognition yesterday and was empirically initiated on Bactrim for concerns of a UTI. Related Data Home Medications ?Medication ?Instructions ?Recorded ?Confirmed carvedilol 3.125 mg tablet 3.125 mg PO BID Htn 02/10/25 03/09/25 Held on 03/12/25. Instructions: Resume on 03/23/25. Resume after clearance from your PCP omeprazole 20 mg capsule,delayed 20 mg PO DAILY Gastritis 02/10/25 05/24/25 release psyllium husk 3.4 gram/5.8 gram 1 ea PO HS PRN Constipation 02/10/25 03/09/25 oral powder (Metamucil Sugar-Free (aspartame)) spironolactone 25 mg tablet 25 mg PO DAILY Htn 02/10/25 05/24/25 trazodone 50 mg tablet 25 mg PO HS PRN Insomnia 02/10/25 03/09/25 Held on 03/11/25. Instructions: Hold until you see your PCP acetaminophen 500 mg tablet 500 mg PO QID PRN pain 03/09/25 05/24/25 (Acetaminophen Extra Strength) aspirin 81 mg chewable tablet 81 mg PO QDAY 03/09/25 03/09/25 bisacodyl 10 mg rectal suppository 10 mg VT QDAY PRN constipation 03/09/25 03/09/25 (Dulcolax (bisacodyl)) buspirone 5 mg tablet 5 mg PO BID 03/09/25 03/09/25 Held on 03/11/25. Instructions: Hold until you see your PCP cholecalciferol (vitamin D3) 125 5,000 unit PO BID 03/09/25 03/09/25 mcg (5,000 unit) capsule fluticasone furoate 27.5 2 spray intranasal HS 03/09/25 03/09/25 mcg/actuation nasal spray,suspension gabapentin 100 mg capsule 100 mg PO TID 03/09/25 05/24/25 magnesium hydroxide 400 mg/5 mL 1,200 mg PO Q3D PRN constipation 03/09/25 03/09/25 oral suspension (Milk of Magnesia) melatonin 5 mg capsule 5 mg PO Q24H PRN sleep 03/09/25 03/09/25 naproxen 250 mg tablet 250 mg PO TID 03/09/25 03/09/25 sodium phosphates 19 gram-7 118 ml VT QDAY PRN constipation 03/09/25 03/09/25 gram/118 mL enema (Enema) zolpidem 5 mg tablet (Ambien) 5 mg PO HS PRN SLEEP 03/09/25 03/09/25 Held on 03/11/25. Instructions: Hold until you see your PCP cholecalciferol (vitamin D3) 50 2,000 unit PO QDAY 05/24/25 05/24/25 mcg (2,000 unit) capsule (Vitamin D3) docusate sodium 100 mg capsule 100 mg PO .qhs 05/24/25 05/24/25 (Colace) valsartan 40 mg tablet 80 mg PO QDAY 05/24/25 05/24/25 vitamin B12 1,000 mcg-folic acid malina .Route 05/24/25 400 mcg sublingual lozenge Previous Rx's ?Medication ?Instructions ?Recorded sodium chloride 1,000 mg soluble 1,000 mg PO BID SIADH #60 tabs 04/22/25 tablet Allergies Allergy/AdvReac Type Severity Reaction Status Date / Time Opioids - Morphine Analogues Allergy Severe Nausea and Verified 03/09/25 08:46 vomiting Review of Systems Review of Systems Systems Reviewed: All systems reviewed, normal except as documented Past Medical History Past Medical History NEUROLOGIC: Positive Migraine CARDIAC: Positive Cardiac Disorders, Cardiac Arrhythmia, Cellulitis, Hypertension and Varicose Veins GASTROINTESTINAL: Positive Gastrointestinal Disorders, Gall Bladder Disease, Diverticulosis and Gastroesophageal Reflux Disease REPRODUCTIVE: Positive Previous Pregnancies MUSCULOSKELETAL: Positive Arthritis ENT: Positive Cataracts (removed bilat) HEMATOLOGIC: Positive Anemia OTHER HISTORY: Positive Falls, Chicken Pox, Measles and Mumps Family History FAMILY HISTORY: Positive Family Cardiac Disorders (mom) and Family Cancer (dad) Surgical History SURGICAL: Positive Eye Surgery (bilat cataract removal), Tonsillectomy and Hysterectomy Social History SMOKING STATUS: Never smoker ED Exam Narrative Physical exam: GENERAL APPEARANCE: alert and oriented x 4, well-developed, well-nourished, no acute distress HEENT: Normocephalic, atraumatic; pupils equal, round, reactive to light; EOMI; mucous membranes pink, moist; oropharynx clear NECK: Supple LUNGS: CTABL; no wheezes, no rales, no rhonchi HEART: Regular rate, regular rhythm; normal S1, S2; no murmurs ABDOMEN: non distended; normal BS; soft, no tenderness, no guarding, no rebound; no masses, no organomegaly, no hernia BACK: no CVA tenderness EXTREMITIES: atraumatic; no edema NEUROLOGIC: awake; alert and oriented x4; cranial nerves II-XII grossly intact; no focal sensory or motor deficits PSYCHIATRIC: appropriate mood and affect SKIN: warm, dry, normal color; no rashes Course Quality Measures none Orders Category Date Time Status CT Screening NOW Care 05/24/25 10:14 Active Chemical Process Analyst NOW Care 05/24/25 07:41 Active EKG (ED ONLY) *Do not use* NOW Care 05/24/25 07:[address] angio carotid w head w Stat Exams 05/24/25 10:[address] head/brain wo con Stat Exams 05/24/25 08:10 Completed EKG (ED Only) Stat Exams 05/24/25 07:41 Draft XR chest 1V portable Stat Exams 05/24/25 07:41 Completed Alcohol, Blood Medical Stat Lab 05/24/25 10:01 Ordered B-Type Natriuretic Peptide Stat Lab 05/24/25 08:05 Completed Blood Culture (Lab) Stat Lab 05/24/25 07:50 Ordered CBC Stat Lab 05/24/25 08:05 Completed Comprehensive Metabolic Panel Stat Lab 05/24/25 08:05 Completed Drug Screen,Urine Stat Lab 05/24/25 10:01 Ordered Lactate (Lactic Acid) Stat Lab 05/24/25 08:05 Completed Lipase Stat Lab 05/24/25 08:05 Completed Magnesium Stat Lab 05/24/25 08:05 Completed Partial Thromboplastin Time Stat Lab 05/24/25 08:05 Completed Procalcitonin Stat Lab 05/24/25 08:05 Completed Prothrombin Time with INR Stat Lab 05/24/25 08:05 Completed Troponin I Stat Lab 05/24/25 08:05 Completed Urinalysis Stat Lab 05/24/25 08:35 Completed Urine Culture Stat Lab 05/24/25 08:35 Received Magnesium Sulfate 2 GM Ivpb [Magnesium Sulfate Ivpb] Med 05/24/25 08:57 Active 2 gm in 50 ml IV X1 EEG Awake and Drowsy Routine RT 05/24/25 10:04 Ordered Reevaluation(s) Reevaluation #1: Discussed lab results with both patient and son. Advised admission for further evaluation and are in agreement with plan. Vital Signs Vital signs: Vital Signs Temperature 99.8 F 05/24/25 07:47 Pulse Rate 99 05/24/25 07:47 Respiratory Rate 20 05/24/25 07:47 Blood Pressure 157/72 H 05/24/25 07:47 Pulse Oximetry (%) 99 05/24/25 07:47 Oxygen Delivery Method Room Air 05/24/25 07:47 Pulse ox is 99% on room air which is adequate. Altered Mental Status MDM Narrative MDM Narrative:: Kina Roland am scribing for and in the presence of Dr. Cortez. Patient data External records reviewed:: [facility] previous records Clinical information provided by:: patient, EMS and family (Son adds to hpi) Social determinants that could affect healthcare access:: none Patient has the following chronic illnesses:: hypertension, spinal stenosis, hyponatremia, UTIs How is presenting disease/condition affected by chronic disease/condition?: exacerbated by Evaluation data The following diagnostics were reviewed and interpreted by me:: lab results, radiology exam(s) and EKG tracing(s) (05/24/2025 @ 07:51 AM. Sinus rhythm, rate 88, IVCD, T-wave inversion in lead I, flattening of the ST segments V4-V6, left ventricular hypertrophy, no acute ischemic changes ) Lab and/or radiology exams considered but not ordered:: None Interpretation Summary: Ordering Physician: Tess Cortez MD Date of Service: 05/24/25 Procedure(s): XR chest 1V portable Accession Number(s): [id number] cc: Rico Bolanos MD; Tess Cortez MD; Lawanda Rayo MD~ Examination: AP chest single view Technique one AP portable upright chest single view Date and time: May 24, 2025, 0805 hours INDICATIONS: Dizziness chest pain beginning 2 days ago. FINDINGS: Normal heart size The lungs are clear. Significant osteopenia IMPRESSION: No active disease Dictated By: Rico Bolanos MD Signed By: <Electronically signed by Rico Bolanos MD in OV> 05/24/25 0820 Ordering Physician: Tess Cortez MD Date of Service: 05/24/25 Procedure(s): CT head/brain wo con Accession Number(s): [id number] cc: Rico Bolanos MD; Tess Cortez MD; Lawanda Rayo MD~ Examination: CT brain head without contrast. 2-D sagittal coronal reconstructions Date and time of exam:May 24, 2025 0842 hours COMPARISON: March 09, 2025 INDICATIONS: Altered mental status today CTDI: vol (mGy):48.8 DLP: (mGycm):965 Technique: Multiple CT axial sections of the brain have been obtained, 5 mm slice thickness. Contrast has not been administered. 2-D sagittal, coronal reconstructions have been obtained Low dose protocols were performed. One or more of the following dose reduction techniques were used; automated exposure control, adjustment of the mA and/or KV according to patient size, use of iterative reconstruction technique. Findings: No significant ventricular enlargement. Intra-axial or extra-axial hemorrhage density is not seen. No mass effect or midline shift Basal cisterns are not remarkable. Fourth ventricle is midline. Cranial vault intact. Impression: Negative for acute hemorrhage, mass effect or midline shift Advise clinical correlation follow-up accordingly Dictated By: Rico Bolanos MD Signed By: <Electronically signed by Rico Bolanos MD in OV> 05/24/25 0904 Medications / Prescriptions Medications or Prescriptions considered but not ordered:: None Medication administrations:: Medication Administration History Magnesium Sulfate (Magnesium Sulfate Ivpb) 2 gm in 50 mls @ 25 mls/hr IV X1 ONE Stop: 05/24/25 10:56 Last Admin: 05/24/25 09:47 Dose: 25 mls/hr Documented By: JT See above Consultations Consultation(s) initiated? (list below): Yes Consultation #1 (Physician, Specialty, Details): I spoke with patients PCP Dr. Rayo. Discussed patients PMHx, HPI, ED course, exam findings, labs, and radiology results. She agrees to accept the patient for admission. Time: 10:00 Diagnosis Differential diagnosis altered mental status: altered mental status, hypoglycemia, hyponatremia, subarachnoid hemorrhage, sepsis and other (UTI) Most likely diagnosis given after review of the tests above:: Near syncope Altered mental status Hypomagnesemia Admission Indicated Admission indicated?: indicated Admission Request Was there a request for admission?: Yes Admission Attestation Admission request attestation: Discussed case with [] from Hospitalist service regarding admission. Discussed patients ED course, exam findings, labs, and radiology results. The Hospitalist [agrees,declines] to accept the patient for admission. Disposition Plan Disposition Plan: Admit Discharge Plan Plan Patient Disposition: Admit Acute Care w/in Hospital Prescriptions/Referrals Prescriptions/Med Rec: No Action sodium chloride 1,000 mg tablet,soluble 1,000 mg PO BID Qty: 60 2RF gabapentin 100 mg capsule 100 mg PO TID melatonin 5 mg capsule 5 mg PO Q24H PRN (Reason: sleep) magnesium hydroxide [Milk of Magnesia] 400 mg/5 mL suspension 1,200 mg PO Q3D PRN (Reason: constipation) naproxen 250 mg tablet 250 mg PO TID acetaminophen [Acetaminophen Extra Strength] 500 mg tablet 500 mg PO QID PRN (Reason: pain) cholecalciferol (vitamin D3) 125 mcg (5,000 unit) capsule 5,000 unit PO BID zolpidem [Ambien] 5 mg tablet 5 mg PO HS PRN (Reason: SLEEP) aspirin 81 mg tablet,chewable 81 mg PO QDAY buspirone 5 mg tablet 5 mg PO BID bisacodyl [Dulcolax (bisacodyl)] 10 mg suppository 10 mg VT QDAY PRN (Reason: constipation) Rx Instructions: FOR NO BM WITHIN 8 HOURS Enema 19-7 gram/118 mL enema 118 ml VT QDAY PRN (Reason: constipation) fluticasone furoate 27.5 mcg/actuation spray,suspension 2 spray intranasal HS Rx Instructions: into each nostril cholecalciferol (vitamin D3) [Vitamin D3] 50 mcg (2,000 unit) capsule 2,000 unit PO QDAY vitamin O34-bktso acid 1,000-400 mcg lozenge .Route docusate sodium [Colace] 100 mg capsule 100 mg PO .qhs valsartan 40 mg tablet 80 mg PO QDAY carvedilol 3.125 mg tablet 3.125 mg PO BID omeprazole 20 mg capsule,delayed release(DR/EC) 20 mg PO DAILY spironolactone 25 mg tablet 25 mg PO DAILY trazodone 50 mg tablet 25 mg PO HS PRN (Reason: Insomnia) Patient Comments: Half to whole tab po qhs prn Metamucil Sugar-Free (aspart) 3.4 gram/5.8 gram powder 1 ea PO HS PRN (Reason: Constipation) Patient Comments: As needed Referrals: Lawanda Rayo MD [Primary Care Provider] - In 1 week Problem List Clinical Impression: AMS (altered mental status), Hypomagnesemia, Near syncope Patient/Caregiver Discharge Instructions Print Language: Ukrainian Stand Alone Forms: Joana Award Info., Patient Portal Info Letter
[2025-05-24 09:01] LABS: Bacteria,Urine Rare; Bilirubin,Urine Negative (Negative); Blood,Urine Negative (Negative); Clarity,Urine Turbid (Clear/Hazy); Color,Urine Lt-Yellow (Lt Yel-Yel); Glucose, Urine Negative (Negative); Ketones,Urine Negative (Negative); Leukocyte Esterase,Urine Negative (Negative); Nitrite,Urine Negative (Negative); PH,Urine 7.5 (5.0-7.0); Protein,Urine Negative (Neg - Trace); RBC,Urine 1 /hpf (0-3); Specific Gravity,Urine 1.012 (1.001-1.035); Squamous Epithelial Cell,Urine 45 /hpf (0-5); Urobilinogen,Urine Negative mg/dL (0.0-1.0); WBC,Urine 1 /hpf (0-5)
[2025-05-24] MEDS: Magnesium Sulfate 2 GM Ivpb 2 GM/50 ML BAG IV (09:47)
[2025-05-24 10:55] LABS: Alcohol, Blood Medical < 10.0 mg/dL (0-10.0)
--- NOTE | 2025-05-24 11:05 | PD.RESHP ---
Documentation for date of: 05/24/25 HPI History of Present Illness Chief complaint: confusion History of present illness: Janice Vences is 85 yr female with PMH of chronic SIADH, primary hypertension, spinal stenosis and polymyalgia rheumatica, cystocele, and insomnia presenting to ED due to confusion and seizure-like episode. Per son at bedside, she has not been herself the past few days. Stated that she would sometimes have tangential speech, some forgetfulness, and sharing too much personal information with strangers. This morning around 6:45 AM, patient had episode of confusion and staring blankly while eating breakfast. She was sitting on the chair with support from her daughter. There was no response by sternal rub. Family called 911 and while in the ambulance at 7:10 AM she was still confused with inability to follow commands. Glucose at home was ~150 and BP was normal. Upon arrival to ED all symptoms resolved. Family was concerned these symptoms may have been due to another UTI episode. Therefore, empirically gave one Macrobid dose yesterday and today. Normally patient is able to complete to ADLs without difficulty and uses Rollaid or cane to walk. Rehab nurse visits 3x/week. Was previously admitted for similar syncopal episode where she fell and fractured Rt ankle, and was found to have UTI. Cardiac workup in the past has been negative. She has good support at home. She denies any dysuria, constipation, headaches, nausea or vomiting, or recent upper respiratory illness. Patient is alert and oriented x3 at bedside. PMH: as noted above PSH: Tibia fracture post fall in February 2025, acute bimalleolar fracture of the right ankle which was splinted in january 2025, L hip repair, bone grafting and dental implant placement in the jaw, gallbladder removal with liver resection at [facility] (approximately 10 years after hysterectomy), attempted gallbladder removal resulting in large incision, gallbladder found embedded in liver (approximately 10 years after hysterectomy), hysterectomy with bilateral oophorectomy at age 51, tonsillectomy at age 10 FH: Brothers open-heart surgery, history of cancer, Heart stent SH: Lives with family, denies smoking or drinking Allergies: Opioids - nausea and vomiting Review of Systems Review of Systems Systems Reviewed: All systems reviewed, normal except as documented Exam Vital Signs Temp Pulse Resp BP Pulse Ox O2 Del Method 99.8 F 99 20 157/72 H 99 Room Air 05/24/25 07:47 05/24/25 07:47 05/24/25 07:47 05/24/25 07:47 05/24/25 07:47 05/24/25 07:47 Narrative Exam General: elderly female, well kempt, No acute distress, cooperative HEENT: NCAT, No JVD noted. Mucosa dry. Pupils are equal and reactive to light bilaterally Cardiovascular: Normal S1 and S2. Regular rate and rhythm. Respiratory: Lungs are clear to auscultation bilaterally. No wheezing or crackles heard. Abdomen: Soft, nontender, not distended, normal bowel sounds. Skin: Warm to touch, dry, no rashes noted Musculoskeletal: No gross injuries. Able to move all 4 extremities. No pitting edema Neuro: Alert and oriented x3. No focal neuro deficits. Psych: Normal affect and mood Results: Labs 05/25/25 05:02 05/24/25 08:05 Labs: Short CBC 05/24/25 Range/Units 08:05 WBC 8.9 (3.6-11.0) Thou/mm3 Hgb 12.8 (12.0-16.0) g/dL Hct 37.7 (36.0-46.0) % Plt Count 177 D (140-440) Thou/mm3 BMP 05/24/25 08:05 Sodium 134 L Potassium 3.5 Chloride 100 Carbon Dioxide 26.0 BUN 10 Creatinine 0.8 Glucose 176 H Calcium 9.2 Cardiac Enzymes 05/24/25 Range/Units 08:05 Troponin I < 0.020 (0.0-0.045) ng/mL Liver Function 05/24/25 Range/Units 08:05 Total Bilirubin 0.7 (0.3-1.2) mg/dL AST 13 (0-34) U/L ALT < 7 L (10-49) U/L Alkaline Phosphatase 112 (46-116) U/L Albumin 4.1 (3.4-4.8) gm/dL Urine 05/24/25 Range/Units 08:35 Urine Color Lt-Yellow (Lt Yel-Yel) Urine Clarity Turbid A (Clear/Hazy) Urine pH 7.5 H (5.0-7.0) Ur Specific Robert 1.012 (1.001-1.035) Urine Protein Negative (Neg - Trace) Urine Glucose (UA) Negative (Negative) Quality Measures Quality Measures none Advance care planning discussed with:: child Medications Home Medications and Allergies Home Medications ?Medication ?Instructions ?Recorded ?Confirmed ?Type omeprazole 20 mg capsule,delayed 20 mg PO DAILY Gastritis 02/10/25 05/24/25 History release psyllium husk 3.4 gram/5.8 gram 1 ea PO HS PRN Constipation 02/10/25 05/25/25 History oral powder (Metamucil Sugar-Free (aspartame)) spironolactone 25 mg tablet 25 mg PO DAILY Htn 02/10/25 05/24/25 History trazodone 50 mg tablet 25 mg PO HS PRN Insomnia 02/10/25 05/25/25 History Held on 03/11/25. Instructions: Hold until you see your PCP acetaminophen 500 mg tablet 500 mg PO TID PRN pain 03/09/25 05/25/25 History (Acetaminophen Extra Strength) buspirone 5 mg tablet 5 mg PO BID 03/09/25 05/25/25 History Held on 03/11/25. Instructions: Hold until you see your PCP cholecalciferol (vitamin D3) 125 5,000 unit PO BID 03/09/25 05/25/25 History mcg (5,000 unit) capsule gabapentin 100 mg capsule 100 mg PO TID 03/09/25 05/24/25 History zolpidem 5 mg tablet (Ambien) 5 mg PO HS PRN SLEEP 03/09/25 05/25/25 History Held on 03/11/25. Instructions: Hold until you see your PCP cholecalciferol (vitamin D3) 50 2,000 unit PO QDAY 05/24/25 05/24/25 History mcg (2,000 unit) capsule (Vitamin D3) docusate sodium 100 mg capsule 100 mg PO .qhs 05/24/25 05/24/25 History (Colace) valsartan 40 mg tablet 80 mg PO HS 05/24/25 05/25/25 History cyanocobalamin (vitamin B-12) 500 1,000 mcg PO QDAY 05/25/25 05/25/25 History mcg tablet (B-12 DOTS) diphenhydramine 25 2 tab PO HS PRN sleep 05/25/25 05/25/25 History mg-acetaminophen 500 mg tablet (Acetaminophen PM) naproxen sodium 220 mg capsule 220 mg PO BID PRN pain 05/25/25 05/25/25 History (Aleve) sodium chloride 1,000 mg soluble 1,000 mg PO DAILY SIADH 05/25/25 05/25/25 History tablet Allergies Allergy/AdvReac Type Severity Reaction Status Date / Time Opioids - Morphine Analogues Allergy Severe Nausea and Verified 03/09/25 08:46 vomiting Visit Medications Discontinued Medications Magnesium Sulfate (Magnesium Sulfate Ivpb) 2 gm in 50 mls @ 25 mls/hr IV X1 ONE Stop: 05/24/25 10:56 Last Admin: 05/24/25 09:47 Dose: 25 mls/hr Assessment & Plan Plan Janice Vences is 85 yr female with PMH of chronic SIADH, primary hypertension, spinal stenosis and polymyalgia rheumatica, cystocele, and insomnia admitted for confusion work up of syncope. Neurology Dr. Nation was consulted. # Altered mental status Ddx: complex partial seizure vs rule out CVA Patient presents with 30 minute long episode of staring blankly into space, decreased response. Family gave dose of Bactrim yesterday due to concern for UTI symptoms. Urinalysis in the hospital, labs unremarkable. CT head was negative in ED. Electrolytes are unremarkable. Symptoms resolved upon arrival to ED. -consulted neuro Dr. Nation, appreciate recs -EEG -neuro checks -seizures precautions PRN -hold hypotensive medications #HTN #Insomnia #SIADH -resume home medications -melatonin HS -continue salt tablets daily -daily CBC, CMP Health maintenance: Dispo: tele, workup syncope FEN: regular DVT prophylaxis: Lovenox CODE STATUS: Full code The patient's management plan was discussed with my attending physician Dr. Rayo. Coretta Rodriguez, PGY-2 Attending Provider Attestation/Addendum Patient seen and examined with resident physician Dr. Rodriguez. Note reviewed, agree with findings and recommendations. Patient with altered mental status and son showed as the videos. Consistent with complex partial seizure. Dr Nation was consulted. Loading dose Keppra was given followed by p.o. Keppra. EEG ordered. MRI brain did not show any acute stroke. Initial CT brain was negative. Patient completely back to normal except per son some memory lapses. She also has a history of SIADH and is on Salt tablet which will be resumed. Hold off on the blood pressure medication. Plan of care discussed with the son Dr. Vences.
--- NOTE | 2025-05-24 11:28 | PC.CC ---
Patient is a 85 year-old female who presents to the hospital for AMS. Shana FIORE made [id number] contact with patient. ASW introduced self, role, and reason for visit.?Patient appeared alert and oriented to self, location, and situation.?At bedside was patient's son, Dr. Dakotah Vences, patient provided consent for son to remain in the room during initial assessment. Patient was pleasant and engaged in initial assessment. Patient confirmed information on demographics and reports she lives alone. Patient reports her next of kin is her son, Dr. Claire . Patient reports she recently broke her right ankle and is using a brace for her ankle. To ambulate patient uses a rollator and cane. Patient requires assistance with ADLs. She is receiving Home Health Services with [facility]. Patient does not require any other DME and is not a dialysis patient. Patient receives primary care with Lawanda Rayo and uses [email or web address] for prescription medications. Upon discharge patient will be returning back home. human services worker to follow up with any discharge needs.
[2025-05-24 12:04] LABS: Cardiac Risk Estimate 2.9 RATIO (3.7-5.6); Cholesterol 146 mg/dL (132-200); HDL Cholesterol 50 mg/dL (40-60); LDL Cholesterol,Calculated 81 mg/dL (0-130); Triglycerides 77 mg/dL (30-150)
--- NOTE | 2025-05-24 12:08 | PD.RESCONSUL ---
HPI Data of Consult Requesting Physician: Lawanda Rayo MD Admitting Provider: Lawanda aRyo MD Attending Provider: Lawanda Rayo MD Primary Care Provider: Lawanda Rayo MD Consult Narrative History of present illness: Ms. Vences is an 85 y/o woman with PMH of primary hypertension, PVCs, spinal stenosis, hyponatremia/chronic SIADH, insomnia, polymyalgia rheumatica, constipation, and recurrent UTIs and urinary retention 2/2 cystocele who was BIBA from home after exhibiting seizure-like activity and altered mental status. Patient was eating breakfast when she became unresponsive at 06:41 AM. She did not respond to verbal stimuli or sternal rub. Video was recorded from 6:42-6:58 AM, showed some lip twitching, absent stare, no convulsions. The episode lasted for about 10-15 minutes with a post-ictal period of unspecified length. No incontinence noted. While in the ambulance at 07:10 AM, she was unable to answer questions appropriately, unable to follow commands, and was counting out loud. Glucose at home ~150, BP WNL. Upon arrive to ED, all symptoms resolved and patient returned to baseline mentation. Over the past several days patient had not been feeling well, intermittent moments of not answering questions appropriately. She presented similarly in the past when she had a UTI. Patient received one dose of Bactrim last night, on 05/23. Per chart review, she would sometimes have tangential speech, some forgetfulness, and sharing too much personal information with strangers. At baseline, patient is able to complete ADLs. She lives with son and [id number], moved in with them after right ankle fracture 2/2 syncopal episode i/s/o UTI. She does not drive. She uses a cane to walk. Rehab nurse visits 3x/week. Previous hospitalization in January 2025: Patient was walking from restroom from bedroom when she felt week and passed out, lasting <1 min, could not get herself up. 10 minute period of AMS, not responding to verbal stimuli or sternal rub. Patient does not remember the episode. Per chart review, patient did have similar episode twice before but it appears to be vasovagal as the patient was having these episodes 1 time when she had a viral infection when she was dehydrated and the other time when she was getting up from the toilet. ADL and IADL independent before this hospitalization. NIHSS 3. CT head and CTA head/neck unremarkable. Admitted for syncope workup. Troponins negative x2. TTE showed normal LV size and function, mild LVH, LVEF 60-65%. Treated for E.coli UTI, right bimalleolar ankle fracture, hyponatremia, thrombocytopenia. Syncopal episode attributed to dehydration, orthostatic changes, and UTI. DIscharged with Augmentin to SNF. Continued spironolactone, valsartan. Held home carvedilol. Interim period in SNF: Left hip hemiarthroplasty 02/23/25. Started ASA 81 mg daily for DVT prophylaxis since fracture repair. Started gabapentin 100 mg 3 TID, Ambien 5 mg QHS, Buspirone 5 mg BID, Trazodone 100 mg QHS. Previous hospitalization in February 2025: Presented from [facility] to ED with AMS and left lower extremity pain with decreased mobility x 1 day. Fingerstick glucose 120. EKG showed sinus tachycardia with QTc [address] head negative. Admitted for severe symptomatic hypoosmolar hyponatremia (Na in ED 118). Lactic acid 1.3. Treated for CAP. AMS improved with NA correction. Discharged to SNF with salt tabs, nitrofurantoin, [id number] mg daily, lorazepam PRN. Continued gabapentin. Held Ambien, Buspar, Carvedilol, Spironolactone, Trazodone. PSH: Tibia fracture post fall in February 2025, acute bimalleolar fracture of the right ankle which was splinted in january 2025, L hip repair, bone grafting and dental implant placement in the jaw, gallbladder removal with liver resection at [facility] (approximately 10 years after hysterectomy), attempted gallbladder removal resulting in large incision, gallbladder found embedded in liver (approximately 10 years after hysterectomy), hysterectomy with bilateral oophorectomy at age 51, tonsillectomy at age 10 FH: AML, renal cell carcinoma, CAD s/p CABG SH: Lives with family, denies smoking or drinking Allergies: Opioids - nausea and vomiting Upon examination at bedside, patient reports that she does not remember the event this morning, only remembers eating breakfast. She is back to baseline mentation per patient and son, Dr. 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 Patient is tired but denies headache, acute changes in vision, palpitations. cc:: cc: Lawanda Rayo MD Review of Systems Review of Systems Narrative Review of Systems: 14 point ROS negative other than HPI Exam Vital Signs Temp Pulse Resp BP Pulse Ox O2 Del Method 99.8 F 99 20 157/72 H 99 Room Air 05/24/25 07:47 05/24/25 07:47 05/24/25 07:47 05/24/25 07:47 05/24/25 07:47 05/24/25 07:47 Narrative Exam General: No acute distress, well nourished Eye: PERRL, EOMI, normal conjunctiva, no scleral icterus HENT: Normocephalic, atraumatic, hearing intact to conversation at normal volume, moist oral mucosa Neck: Supple, non-tender, no JVD, no lymphadenopathy Lungs: Non-labored respirations, symmetric chest rise Heart: Peripheral pulses intact bilaterally Abdomen: Soft, non-tender, non-distended Musculoskeletal: Normal range of motion and strength Skin: Skin is warm, dry, no rashes or lesions. Psychiatric: Cooperative, appropriate mood and affect Neurologic: Mental status: Orientation: Oriented to person, place, time, and situation Communication: Patient is cooperative and can follow simple instructions Language: Speech fluent, normal rate and volume, comprehension intact Cranial nerves: CN II: Visual tao intact CN III: Pupils equal, round, and reactive to light CN III, IV, : No gaze deviation, no nystagmus Horizontal pursuit: intact Vertical pursuit: intact Ptosis: none CN V: Facial sensation to light touch intact bilaterally at the forehead, cheeks, and jaw line CN VII: Face symmetric, no facial droop appreciated CN VIII: Able to hear and respond to conversation at normal volume, intact to finger rub CN IX, X: Palate elevation symmetric, uvula midline CN XI: Head turn and shoulder shrug strong, symmetric bilaterally CN XII: Normal tongue protrusion without deviation, no fasciculations Motor: Normal bulk and tone No atrophy No abnormal movements or fasciculations Muscle strength: Shoulder abduction limited 2/2 pain bilaterally Elbow flexion: R 5/5 L 5/5 Elbow extension: R 5/5 L 5/5 Hip flexion: R 5/5 L 5/5 Hip extension: R 5/5 L 5/5 Knee flexion: R 5/5 L 5/5 Knee extension: R 5/5 L 5/5 Sensory: RUE: Light touch intact LUE: Light touch intact RLE: Light touch intact LLE: Light touch intact Reflexes: Biceps (C5-6): R 2+ L 2+ Brachioradialis (C5-6): R 2+ L 2+ Triceps (C7-8): R 2+ L 2+ Patellae (L3-4): R 2+ L 1+ Cerebellum: RUE: No dysmetria (finger to nose), no dysdiadochokinesia (rapid alternating movements) LUE: No dysmetria (finger to nose), no dysdiadochokinesia (rapid alternating movements) RLE: No dysmetria (heel to soares) LLE: No dysmetria (heel to soares) Patient able to stand with support. Results Labs 05/25/25 05:02 05/25/25 05:02 Labs: Short CBC 05/24/25 Range/Units 08:05 WBC 8.9 (3.6-11.0) Thou/mm3 Hgb 12.8 (12.0-16.0) g/dL Hct 37.7 (36.0-46.0) % Plt Count 177 D (140-440) Thou/mm3 BMP 05/24/25 08:05 Sodium 134 L Potassium 3.5 Chloride 100 Carbon Dioxide 26.0 BUN 10 Creatinine 0.8 Glucose 176 H Calcium 9.2 Cardiac Enzymes 05/24/25 Range/Units 08:05 Troponin I < 0.020 (0.0-0.045) ng/mL Liver Function 05/24/25 Range/Units 08:05 Total Bilirubin 0.7 (0.3-1.2) mg/dL AST 13 (0-34) U/L ALT < 7 L (10-49) U/L Alkaline Phosphatase 112 (46-116) U/L Albumin 4.1 (3.4-4.8) gm/dL Urine 05/24/25 Range/Units 08:35 Urine Color Lt-Yellow (Lt Yel-Yel) Urine Clarity Turbid A (Clear/Hazy) Urine pH 7.5 H (5.0-7.0) Ur Specific [place] 1.012 (1.001-1.035) Urine Protein Negative (Neg - Trace) Urine Glucose (UA) Negative (Negative) Quality Measures Quality Measures none Advance care planning discussed with:: patient and child Medications Home Medications and Allergies Home Medications ?Medication ?Instructions ?Recorded ?Confirmed ?Type omeprazole 20 mg capsule,delayed 20 mg PO DAILY Gastritis 02/10/25 05/24/25 History release psyllium husk 3.4 gram/5.8 gram 1 ea PO HS PRN Constipation 02/10/25 05/25/25 History oral powder (Metamucil Sugar-Free (aspartame)) spironolactone 25 mg tablet 25 mg PO DAILY Htn 02/10/25 05/24/25 History trazodone 50 mg tablet 25 mg PO HS PRN Insomnia 02/10/25 05/25/25 History Held on 03/11/25. Instructions: Hold until you see your PCP acetaminophen 500 mg tablet 500 mg PO TID PRN pain 03/09/25 05/25/25 History (Acetaminophen Extra Strength) buspirone 5 mg tablet 5 mg PO BID 03/09/25 05/25/25 History Held on 03/11/25. Instructions: Hold until you see your PCP cholecalciferol (vitamin D3) 125 5,000 unit PO BID 03/09/25 05/25/25 History mcg (5,000 unit) capsule gabapentin 100 mg capsule 100 mg PO TID 03/09/25 05/24/25 History zolpidem 5 mg tablet (Ambien) 5 mg PO HS PRN SLEEP 03/09/25 05/25/25 History Held on 03/11/25. Instructions: Hold until you see your PCP cholecalciferol (vitamin D3) 50 2,000 unit PO QDAY 05/24/25 05/24/25 History mcg (2,000 unit) capsule (Vitamin D3) docusate sodium 100 mg capsule 100 mg PO .qhs 05/24/25 05/24/25 History (Colace) valsartan 40 mg tablet 80 mg PO HS 05/24/25 05/25/25 History cyanocobalamin (vitamin B-12) 500 1,000 mcg PO QDAY 05/25/25 05/25/25 History mcg tablet (B-12 DOTS) diphenhydramine 25 2 tab PO HS PRN sleep 05/25/25 05/25/25 History mg-acetaminophen 500 mg tablet (Acetaminophen PM) naproxen sodium 220 mg capsule 220 mg PO BID PRN pain 05/25/25 05/25/25 History (Aleve) sodium chloride 1,000 mg soluble 1,000 mg PO DAILY SIADH 05/25/25 05/25/25 History tablet Allergies Allergy/AdvReac Type Severity Reaction Status Date / Time Opioids - Morphine Analogues Allergy Severe Nausea and Verified 03/09/25 08:46 vomiting Visit Medications Acetaminophen (Acetaminophen 325 Mg Tablet) 650 mg PO Q6H PRN PRN Reason: pain 1-3 &/or fever >100.3 Stop: 06/23/25 11:01 Docusate Sodium (Docusate Sod 100 Mg Capsule) 100 mg PO QDAY PRN; Protocol PRN Reason: CONSTIPATION Stop: 06/23/25 11:01 Enoxaparin Sodium (Enoxaparin Sod Inj 40 Mg/0.4 Ml Syringe) 40 mg SC QDAY CASSANDRA Stop: 06/07/25 11:09 Levetiracetam (Levetiracetam 250 Mg Tablet) 500 mg PO BID CASSANDRA Stop: 06/23/25 20:59 Ondansetron HCl (Ondansetron Inj 2 Mg/Ml Inj 2 Ml) 4 mg IVP Q6H PRN; Protocol PRN Reason: NAUSEA OR VOMITING Stop: 06/23/25 11:01 Discontinued Medications Magnesium Sulfate (Magnesium Sulfate Ivpb) 2 gm in 50 mls @ 25 mls/hr IV X1 ONE Stop: 05/24/25 10:56 Last Admin: 05/24/25 09:47 Dose: 25 mls/hr Levetiracetam (Levetiracetam Inj 100 Mg/Ml Vial 5ml) 1,000 mg IVP X1 ONE Stop: 05/24/25 11:34 Assessment & Plan Plan #Complex partial seizure #Altered mental status, resolved Witnessed Second episode, first in January 2025 i/s/o UTI Presentation: unresponsive, absent stare, intermittent twitching of lips No hx seizures, not prescribed anti-seizure meds EKG: NSR HR 88, QTc 434 Initial glucose at home 150s, initial glucose in ED 176 PT, INR, PTT WNL UA: negative for UTI UDS negative, EtOH <10 Troponin: negative x1 BNP: 46 WNL Procal: 0.18 WNL Chest XR: No active disease. Osteopenia. CT head w/o: Negative for hemorrhage, midline shift, mass effect MRI brain w/ and w/o: No acute hemorrhage, mass effect, midline shift. No acute infarct. Prominant b/l microvascular white matter changes. No enhancing lesions. Meds given: Keppra load 1 g IV x1 given in ED Plan: - Pending TSH - Pending EEG - Continue maintenance Keppra 500 mg BID # Chronic radiculopathy 2/2 spinal stenosis Home med: Gabapentin 100 mg TID Plan: - Continue Gabapentin 100 mg TID #Primary hypertension #Insomnia #Chronic SIADH Initial Na: 134 #Polymyalgia rheumatica #Chronic constipation - Doc-senna PRN #Chronic UTIs 2/2 cystocele - Management per primary team Plan discussed with Dr. Rios Islas, PGY1 Attending Provider Attestation/Addendum Patient was seen and examined at the bedside and agree with resident's findings, assessment and plan of care. Patient's clinical presentation of a complex partial seizure with a prolonged postictal state and abnormal EEG. Workup to look for secondary causes: Negative. MRI brain showed moderate chronic white matter changes Continue with the Keppra 500 mg twice a day, follow seizure precautions and avoid seizure triggers including dehydration and electrolyte abnormalities and sleep deprivation.
[2025-05-24] MEDS: levETIRAcetam INJ 100 MG/ML VIAL 5ML 1000 MG IVP (12:24)
[2025-05-24] MEDS: ENOXAPARIN SOD INJ 40 MG/0.4 ML SYRINGE SC (12:25)
--- NOTE | 2025-05-24 12:33 | PC.NURSE ---
pt given a bed li to urinate and afterwards a brief was put on her. pt given keppra and lovenox. left room pt awake son at bedside
[2025-05-24 12:47] LABS: Amphetamine/Methamp Scrn,U Negative (Negative); Barbiturate Screen,Urine Negative (Negative); Benzodiazepines Screen,Urine Negative (Negative); Benzoylecgonine Screen, Ur Negative (Negative); Fentanyl Screen,Urine Negative (Negative); Opiate Screen,Urine Negative (Negative); THC Screen,Urine Negative (Negative)
[2025-05-24] MEDS: ACETAMINOPHEN 325 MG TABLET 650 MG PO (19:43)
[2025-05-24] MEDS: GABAPENTIN 100 MG CAPSULE PO (21:20)
[2025-05-25] VITALS: BP 120/64; PULSE 70; RESP 15; TEMP 36.1; O2SAT 96
[2025-05-25 01:27] VITALS: BMI 27.1
[2025-05-25 04:00] VITALS: BP 111/57; PULSE 76; RESP 17; TEMP 36.2; O2SAT 97
[2025-05-25 05:41] LABS: Basophils # (Auto) 0.0 Thou/mm3 (0.0-0.2); Basophils % (Auto) 0 % (0-2.5); Eosinophils # (Auto) 0.2 Thou/mm3 (0.0-0.5); Eosinophils % (Auto) 4 % (0-10); Hematocrit 34.8 % (36.0-46.0); Hemoglobin 11.8 g/dL (12.0-16.0); Immature Granulocytes Auto 0.02 Thou/mm3 (0.00-0.00); Lymphocytes # (Auto) 1.0 Thou/mm3 (1.0-4.8); Lymphocytes % (Auto) 23 % (10-50); Mean Corpuscular HGB Conc 33.9 g/dl (31.0-37.0); Mean Corpuscular Hemoglobin 32.2 pg (25.0-35.0); Mean Corpuscular Volume 95 fL (80-100); Monocytes # (Auto) 0.4 Thou/mm3 (0.0-0.8); Monocytes % (Auto) 9 % (0-12); Neutrophils # (Auto) 2.8 Thou/mm3 (1.8-7.7); Neutrophils % (Auto) 63 % (37-80); Nucleated Red Blood Cell # 0.00 Thou/mm3 (0.00-0.00); Nucleated Red Blood Cell % 0 /100 WBC (0); Platelet Count 175 Thou/mm3 (140-440); RDW Standard Deviation 42.5 fL (36.4-46.3); Red Blood Count 3.67 Miln/mm3 (4.00-5.20); White Blood Count 4.5 Thou/mm3 (3.6-11.0)
[2025-05-25 06:00] VITALS: BMI 27.1
[2025-05-25] MEDS: GABAPENTIN 100 MG CAPSULE PO ×2 (06:00→13:36)
[2025-05-25 06:41] LABS: Alanine Aminotransferase < 7 U/L (10-49); Albumin, Serum 3.5 gm/dL (3.4-4.8); Albumin/Globulin Ratio 1.7 (1.2-2.2); Alkaline Phosphatase 90 U/L (46-116); Anion Gap 7 (7-16); Aspartate Amino Transferase 13 U/L (0-34); BUN/Creatinine Ratio 10 Ratio (12-20); Bilirubin,Total 0.5 mg/dL (0.3-1.2); Blood Urea Nitrogen 8 mg/dL (9-23); Calcium 8.9 mg/dL (8.3-10.6); Calcium (Corrected) 9.3 mg/dL (8.5-10.1); Carbon Dioxide 27.4 mMol/L (20.0-31.0); Chloride 100 mMol/L (98-107); Creatinine (Component) 0.8 mg/dL (0.6-1.3); Estimated Creatinine Clearance 51.6 mL/min (>60); Globulin 2.1 gm/dL (2.3-3.5); Glucose 101 mg/dL (74-106); Magnesium 1.8 mg/dL (1.6-2.6); Osmolality,Calculated 266 (275-295); Phosphorous 3.4 mg/dL (2.4-5.1); Potassium 4.1 mMol/L (3.4-5.1); Sodium 134 mMol/L (136-145); Thyroid Stimulating Hormone 0.70 uIU/mL (0.55-4.78); Total Protein 5.6 gm/dL (5.7-8.2); eGFR > 60 See Note
--- NOTE | 2025-05-25 07:20 | ESPR_ITS ---
Documentation for date of: 05/25/25 Subjective Subjective Interval history: Patient examined at bedside. She reports that she slept well last night and was able to eat dinner, breakfast, and lunch. She denies new symptoms and has had no more focal seizure episodes since admission. Exam Vital Signs Temp Pulse Resp BP Pulse Ox O2 Del Method 97.1 F 76 17 111/57 L 97 Room Air 05/25/25 04:00 05/25/25 04:00 05/25/25 04:00 05/25/25 04:00 05/25/25 04:00 05/25/25 04:00 Narrative Exam General: No acute distress, well nourished Eye: PERRL, EOMI, normal conjunctiva, no scleral icterus HENT: Normocephalic, atraumatic, hearing intact to conversation at normal volume, moist oral mucosa Neck: Supple, non-tender, no JVD, no lymphadenopathy Lungs: Non-labored respirations, symmetric chest rise Heart: Peripheral pulses intact bilaterally Abdomen: Soft, non-tender, non-distended Musculoskeletal: Normal range of motion and strength Skin: Skin is warm, dry, no rashes or lesions. Psychiatric: Cooperative, appropriate mood and affect Neurologic: Mental status: Orientation: Oriented to person, place, time, and situation Communication: Patient is cooperative and can follow simple instructions Language: Speech fluent, normal rate and volume, comprehension intact Cranial nerves: CN II: Visual tao intact CN III: Pupils equal, round, and reactive to light CN III, IV, : No gaze deviation, no nystagmus Horizontal pursuit: intact Vertical pursuit: intact Ptosis: none CN V: Facial sensation to light touch intact bilaterally at the forehead, cheeks, and jaw line CN VII: Face symmetric, no facial droop appreciated CN VIII: Able to hear and respond to conversation at normal volume, intact to finger rub CN IX, X: Palate elevation symmetric, uvula midline CN XI: Head turn and shoulder shrug strong, symmetric bilaterally CN XII: Normal tongue protrusion without deviation, no fasciculations Motor: Normal bulk and tone No atrophy No abnormal movements or fasciculations Muscle strength: Shoulder abduction limited 2/2 pain bilaterally Elbow flexion: R 5/5 L 5/5 Elbow extension: R 5/5 L 5/5 Hip flexion: R 5/5 L 5/5 Hip extension: R 5/5 L 5/5 Knee flexion: R 5/5 L 5/5 Knee extension: R 5/5 L 5/5 Sensory: RUE: Light touch intact LUE: Light touch intact RLE: Light touch intact LLE: Light touch intact Reflexes: Biceps (C5-6): R 2+ L 2+ Brachioradialis (C5-6): R 2+ L 2+ Triceps (C7-8): R 2+ L 2+ Patellae (L3-4): R 2+ L 1+ Cerebellum: RUE: No dysmetria (finger to nose), no dysdiadochokinesia (rapid alternating movements) LUE: No dysmetria (finger to nose), no dysdiadochokinesia (rapid alternating movements) RLE: No dysmetria (heel to soares) LLE: No dysmetria (heel to soares) Objective Labs 05/25/25 05:02 05/25/25 05:02 Labs: Laboratory Results - last 24 hr 05/24/25 05/24/25 05/24/25 08:05 08:35 12:33 WBC 8.9 RBC 3.98 L Hgb 12.8 Hct 37.7 MCV 95 MCH 32.2 MCHC 34.0 RDW Std Deviation 41.7 Plt Count 177 D Neut % (Auto) 92 H Lymph % (Auto) 4 L [place] % (Auto) 3 Eos % (Auto) 1 Baso % (Auto) 0 Neut # (Auto) 8.2 H Lymph # (Auto) 0.4 L [place] # (Auto) 0.2 Eos # (Auto) 0.1 Baso # (Auto) 0.0 Immature Gran # (Auto) 0.02 H Absolute Nucleated RBC 0.00 Immature Gran % 0 Nucleated RBC % 0 PT 11.2 INR 1.0 APTT 25.1 Sodium 134 L Potassium 3.5 Chloride 100 Carbon Dioxide 26.0 Anion Gap 8 BUN 10 Creatinine 0.8 Estim Creat Clear Calc 52.4 L eGFR > 60 BUN/Creatinine Ratio 13 Glucose 176 H Calculated Osmolality 271 L Lactic Acid 1.7 Calcium 9.2 Corrected Calcium 9.2 Phosphorus Magnesium 1.3 L Total Bilirubin 0.7 AST 13 ALT < 7 L Alkaline Phosphatase 112 Troponin I < 0.020 B-Natriuretic Peptide 46 Total Protein 6.3 Albumin 4.1 Globulin 2.2 L Albumin/Globulin Ratio 1.9 Triglycerides 77 Cholesterol 146 LDL Cholesterol, Calc 81 HDL Cholesterol 50 Cholesterol/HDL Ratio 2.9 L Lipase 30 Procalcitonin 0.18 TSH Ur Collection Type Clean Catch Urine Color Lt-Yellow Urine Clarity Turbid A Urine pH 7.5 H Ur Specific [place] 1.012 Urine Protein Negative Urine Glucose (UA) Negative Urine Ketones Negative Urine Blood Negative Urine Nitrite Negative Urine Bilirubin Negative Urine Urobilinogen (Auto) Negative Ur Leukocyte Esterase Negative Urine RBC 1 Urine WBC 1 Ur Squamous Epith Cells 45 H Urine Bacteria Rare Urine Opiates Screen Negative Urine Fentanyl Screen Negative Ur Barbiturates Screen Negative U Amphetamin/Meth Scrn Negative U Benzodiazepines Scrn Negative U Cocaine Metab Screen Negative U Marijuana (THC) Screen Negative Ethyl Alcohol < 10.0 05/25/25 05:02 WBC 4.5 D RBC 3.67 L Hgb 11.8 L Hct 34.8 L MCV 95 MCH 32.2 MCHC 33.9 RDW Std Deviation 42.5 Plt Count 175 Neut % (Auto) 63 Lymph % (Auto) 23 [place] % (Auto) 9 Eos % (Auto) 4 Baso % (Auto) 0 Neut # (Auto) 2.8 Lymph # (Auto) 1.0 [place] # (Auto) 0.4 Eos # (Auto) 0.2 Baso # (Auto) 0.0 Immature Gran # (Auto) 0.02 H Absolute Nucleated RBC 0.00 Immature Gran % 0 Nucleated RBC % 0 PT INR APTT Sodium 134 L Potassium 4.1 D Chloride 100 Carbon Dioxide 27.4 Anion Gap 7 BUN 8 L Creatinine 0.8 Estim Creat Clear Calc 51.6 L eGFR > 60 BUN/Creatinine Ratio 10 L Glucose 101 D Calculated Osmolality 266 L Lactic Acid Calcium 8.9 Corrected Calcium 9.3 Phosphorus 3.4 Magnesium 1.8 Total Bilirubin 0.5 AST 13 ALT < 7 L Alkaline Phosphatase 90 D Troponin I B-Natriuretic Peptide Total Protein 5.6 L Albumin 3.5 D Globulin 2.1 L Albumin/Globulin Ratio 1.7 Triglycerides Cholesterol LDL Cholesterol, Calc HDL Cholesterol Cholesterol/HDL Ratio Lipase Procalcitonin TSH 0.70 Ur Collection Type Urine Color Urine Clarity Urine pH Ur Specific [place] Urine Protein Urine Glucose (UA) Urine Ketones Urine Blood Urine Nitrite Urine Bilirubin Urine Urobilinogen (Auto) Ur Leukocyte Esterase Urine RBC Urine WBC Ur Squamous Epith Cells Urine Bacteria Urine Opiates Screen Urine Fentanyl Screen Ur Barbiturates Screen U Amphetamin/Meth Scrn U Benzodiazepines Scrn U Cocaine Metab Screen U Marijuana (THC) Screen Ethyl Alcohol Quality Measures Quality Measures none Advance care planning discussed with:: patient and other Assessment & Plan Assessment Current Active Medications: Generic Name Dose Route Start Last Admin Trade Name Freq PRN Reason Stop Dose Admin Acetaminophen 650 mg 05/24/25 11:02 05/24/25 19:43 Acetaminophen 325 Mg Tablet PO 06/23/25 11:01 650 mg Q6H PRN Administration pain 1-3 &/or fever >100.3 Docusate Sodium 100 mg 05/24/25 11:02 Docusate Sod 100 Mg Capsule PO 06/23/25 11:01 QDAY PRN CONSTIPATION Protocol Enoxaparin Sodium 40 mg 05/24/25 11:10 05/24/25 12:25 Enoxaparin Sod Inj 40 Mg/0.4 Ml Syringe SC 06/07/25 11:09 40 mg QDAY CASSANDRA Administration Gabapentin 100 mg 05/24/25 22:00 05/25/25 06:00 Gabapentin 100 Mg Capsule PO 06/23/25 21:59 100 mg TID CASSANDRA Administration Levetiracetam 500 mg 05/24/25 21:00 05/24/25 21:20 Levetiracetam 250 Mg Tablet PO 06/23/25 20:59 500 mg BID CASSANDRA Administration Ondansetron HCl 4 mg 05/24/25 11:02 Ondansetron Inj 2 Mg/Ml Inj 2 Ml IVP 06/23/25 11:01 Q6H PRN NAUSEA OR VOMITING Protocol Plan #Complex partial seizure / focal seizure with impairment of consciousness or awareness #Altered mental status, resolved Witnessed Second episode, first in January 2025 i/s/o UTI Presentation: unresponsive, absent stare, intermittent twitching of lips No hx seizures, not prescribed anti-seizure meds EKG: NSR HR 88, QTc 434 Initial glucose at home 150s, initial glucose in ED 176 PT, INR, PTT WNL UA: negative for UTI UDS negative, EtOH <10 Troponin: negative x1 BNP: 46 WNL Procal: 0.18 WNL TSH: 0.7 WNL Chest XR: No active disease. Osteopenia. CT head w/o: Negative for hemorrhage, midline shift, mass effect MRI brain w/ and w/o: No acute hemorrhage, mass effect, midline shift. No acute infarct. Prominant b/l microvascular white matter changes. No enhancing lesions. EEG: Localized spike and wave pattern in the right anterior temporal and temporal region c/w seizure Meds given: Keppra load 1 g IV x1 given in ED Patient's clinical presentation of a complex partial seizure with a prolonged postictal state and abnormal EEG. Workup to look for secondary causes: Negative. Tolerative Keppra well. Plan: - Continue maintenance Keppra 500 mg BID - Follow seizure precautions - Avoid seizure triggers including dehydration. electrolyte abnormalities, sleep deprivation - F/U with neuro outpatient # Chronic radiculopathy 2/2 spinal stenosis Home med: Gabapentin 100 mg TID Plan: - Continue Gabapentin 100 mg TID #Primary hypertension #Insomnia #Chronic SIADH Initial Na: 134 #Polymyalgia rheumatica #Chronic constipation - Doc-senna PRN #Chronic UTIs 2/2 cystocele - Management per primary team Plan discussed with Dr. Rios Islas, PGY1
[2025-05-25 07:40] VITALS: PULSE 73; RESP 17; RESP 97
[2025-05-25 08:00] VITALS: BP 129/71; PULSE 64; PULSE 79; RESP 17; TEMP 36.2; O2SAT 99
[2025-05-25] MEDS: ENOXAPARIN SOD INJ 40 MG/0.4 ML SYRINGE SC (08:18)
[2025-05-25] MEDS: DOCUSATE SOD 100 MG CAPSULE PO (08:18)
--- NOTE | 2025-05-25 10:09 | ESDS_ITS ---
Planned Discharge Date 05/25/25 DS: Providers Provider Date of admission: 05/24/25 11:01 Primary care physician: Lawanda Rayo MD Admitting Provider: Lawanda Rayo MD Attending Provider on Admission: Lawanda Rayo MD Consults: 05/24/25 11:31 Consult to Neurology / Tele-Neurology Routine Comment: Consulting Provider: Luis Nation 05/24/25 16:22 Referral Physical Therapy Routine Comment: To evaluate and treat Physician Instructions: 05/25/25 01:16 Referral Care Management Routine Comment: Attending Provider on DC: Lawanda Rayo MD Discharging Provider: Lawanda Rayo MD DS: Diagnosis Problem List Completed Was Problem List Reviewed/Reconciled?: Yes Hospital Course Hospital Course Hospital course: Summary: Janice Vences is 85 yr female with PMH of chronic SIADH, primary hypertension, spinal stenosis and polymyalgia rheumatica, cystocele, and insomnia presenting to ED due to confusion and seizure-like episode. Per son, patient experienced ~30 minute episode of confusion and staring blankly into space. unresponsive to sternal rub and limp. Son reports she has been having tangential speech, some forgetfulness, and sharing too much personal information with strangers for the past several days. Family was concerned these symptoms may have been due to another UTI episode. Therefore, empirically gave one Macrobid dose night prior to admission and morning of admission. Upon arrival to ED all symptoms resolved. Hospital Course: Patient was seen by primary team and neurology was consulted. Stroke workup negative. Cardiac workup in the past has been negative. Patient was diagnosed with complex partial seizure by neurology and was given loading dose of Keppra 1 g and to continue maintenance Keppra 500 mg BID. EEG showed localized spike and wave pattern in Rt anterior temporal and temporal regions consistent with seizure. No further seizures during hospital stay. Blood pressures were 110- 120s/60s without administering home dose of Valsartan 40 mg, so medication held. Patient has been back to baseline since arrival to ED. Vitals and labs reviewed, stable. Patient is clinically stable and ready to return home. Discharge Recommendations: - Please take all medications as prescribed - START Keppra 500 mg twice daily - STOP Valsartan 40 mg daily - Prescribed Lorazepam prn for breakthrough seizures - Please follow up with your PCP Dr. Rayo within one week of discharge - If your symptoms worsen, please seek immediate medical attention and return to your nearest emergency room. Hospital Diagnoses: #Complex partial seizure #Altered mental status, resolved # Chronic radiculopathy 2/2 spinal stenosis #Primary hypertension #Insomnia #Chronic SIADH #Polymyalgia rheumatica #Chronic constipation #Chronic UTIs 2/2 cystocele Status at Discharge Cognitive/behavioral status at discharge: Stable Functional status at discharge: uses cane/walker Overall status at discharge: patient is back to baseline Time Spent with Patient Time attestation: Total time spent providing and/or coordinating discharge services: Time spent: Greater than 30 minutes Exam Vital Signs Temp Pulse Resp BP Pulse Ox O2 Del Method 97.2 F 64 17 129/71 99 Room Air 05/25/25 08:00 05/25/25 08:00 05/25/25 08:00 05/25/25 08:00 05/25/25 08:00 05/25/25 08:00 Narrative Exam General: elderly female, No acute distress, cooperative, AOx3 HEENT: NCAT, No JVD noted. Mucosa dry. Pupils are equal and reactive to light bilaterally Cardiovascular: Normal S1 and S2. Regular rate and rhythm. Respiratory: Lungs are clear to auscultation bilaterally. No wheezing or crackles heard. Abdomen: Soft, nontender, not distended, normal bowel sounds. Skin: Warm to touch, dry, no rashes noted Musculoskeletal: No gross injuries. Able to move all 4 extremities. No pitting edema Neuro: Alert and oriented x3. No focal neuro deficits. No tangential speech or word finding difficulty Psych: Normal affect and mood Discharge Plan Plan Patient Disposition: HOME (Self Care) Patient condition on transfer: Stable Prescriptions/Referrals Prescriptions/Med Rec: New levetiracetam [Keppra] 500 mg tablet 500 mg PO BID Qty: 60 0RF Continued gabapentin 100 mg capsule 100 mg PO TID acetaminophen [Acetaminophen Extra Strength] 500 mg tablet 500 mg PO TID PRN (Reason: pain) buspirone 5 mg tablet 5 mg PO BID cholecalciferol (vitamin D3) [Vitamin D3] 50 mcg (2,000 unit) capsule 2,000 unit PO QDAY docusate sodium [Colace] 100 mg capsule 100 mg PO .qhs valsartan 40 mg tablet 80 mg PO HS cyanocobalamin (vitamin B-12) [B-12 DOTS] 500 mcg tablet 1,000 mcg PO QDAY sodium chloride 1,000 mg tablet,soluble 1,000 mg PO DAILY omeprazole 20 mg capsule,delayed release(DR/EC) 20 mg PO DAILY spironolactone 25 mg tablet 25 mg PO DAILY trazodone 50 mg tablet 25 mg PO HS PRN (Reason: Insomnia) Patient Comments: Half to whole tab po qhs prn Discontinued cholecalciferol (vitamin D3) 125 mcg (5,000 unit) capsule 5,000 unit PO BID zolpidem [Ambien] 5 mg tablet 5 mg PO HS PRN (Reason: SLEEP) naproxen sodium [Aleve] 220 mg capsule 220 mg PO BID PRN (Reason: pain) diphenhydramine-acetaminophen [Acetaminophen PM] 25-500 mg tablet 2 tab PO HS PRN (Reason: sleep) Metamucil Sugar-Free (aspart) 3.4 gram/5.8 gram powder 1 ea PO HS PRN (Reason: Constipation) Patient Comments: As needed Referrals: Lawanda Rayo MD [Primary Care Provider] - Patient/Caregiver Discharge Instructions Discharge Activity: activity as tolerated and resume usual activities Print Language: Greenlandic Activity Restrictions/Additional Instructions: Please follow up with Dr. Rayo and neurology within 1-2 weeks of discharge. Stand Alone Forms: Joana Award Info., Patient Portal Info Letter Discharge Order Discharge Orders: Discharge (Routine); Ordered 05/25/25 Ordered By: Lawanda Rayo Quality Discharge Quality Measures VTE prophylaxis Attestestation MD Attestation Patient seen and examined with resident physician Dr. Rogers. Note reviewed, agree with findings and recommendations with the changes made. Patient currently seen in telemetry. EEG showed abnormality consistent with her seizures. Spoke with Dr. Ronald salazar for discharge on Keppra p.o. Resume all her home medications. Spoke to [id number] at bedside. Follow-up with me in 1 to 2 weeks
[2025-05-25 12:00] VITALS: BP 112/74; PULSE 72; PULSE 75; RESP 19; TEMP 36.1; O2SAT 98
--- NOTE | 2025-05-25 12:00 | PC.PT ---
Patient is safe to ambulate to the bathroom and in the halls with her rollator walker, the R ankle brace, and 1 staff assist for safety due to her hx of seizure like activity. RN made aware.
--- NOTE | 2025-05-25 12:38 | PC.URM ---
I spoke with Dr. Rayo about changing patient's status to observation as he did not meet criteria. Dr. Rayo agreed and gave me orders for observation.
[2025-05-25] MEDS: ACETAMINOPHEN 325 MG TABLET 650 MG PO (13:36)
--- NOTE | 2025-05-25 13:49 | PC.SS ---
Addendum entered by Annabel Asher TRAFFIC ROUTING ENGINEER 05/25/25 13:53: Bedside nurse Vinita provided update to TRAFFIC ROUTING ENGINEER stating that pt. family was at bedside and confirmed that pt. has already been establisehd with [facility]. Pt. PCP is dr. Rayo. Pt. family spoke to TRAFFIC ROUTING ENGINEER and stated they do not have any questions or request from SS at this time. Original Note: TRAFFIC ROUTING ENGINEER received update from HARLEEN Gates stating that pt. will need HH for PT OT. TRAFFIC ROUTING ENGINEER followed up with pt. bedside nurse Vinita, Vinita stated that she will let doctors know to put the order in.
--- NOTE | 2025-05-25 14:37 | PC.SS ---
Rounding note: Pt. to d/c with home health.
[2025-05-25 16:00] VITALS: BP 139/72; PULSE 66; PULSE 67; RESP 19; TEMP 36.1; O2SAT 98
== END 2025-05-25 18:17 | disposition home or self-care (01) ==
LOC: SERX 10:38 → S2NX 05-25 06:54 → SERHOLD 05-25 13:09 → S2NX 05-25 13:09
PROVIDERS: Admitting Provider Internal Medicine; Emergency Provider Emergency Medicine; PCP Internal Medicine; Visit Provider Internal Medicine
DX: G40.209 Localization-related (focal) (partial) symptomatic epilepsy and epileptic syndromes with complex partial seizures, not intractable, without status epilepticus (principal); E22.2 Syndrome of inappropriate secretion of antidiuretic hormone; M48.00 Spinal stenosis, site unspecified; I10 Essential (primary) hypertension; K21.9 Gastro-esophageal reflux disease without esophagitis; G47.00 Insomnia, unspecified; M35.3 Polymyalgia rheumatica; E83.42 Hypomagnesemia; E87.8 Other disorders of electrolyte and fluid balance, not elsewhere classified; K59.09 Other constipation; M85.80 Other specified disorders of bone density and structure, unspecified site; Z87.440 Personal history of urinary (tract) infections; Z90.49 Acquired absence of other specified parts of digestive tract; Z90.722 Acquired absence of ovaries, bilateral; M54.10 Radiculopathy, site unspecified; Z01.810 Encounter for preprocedural cardiovascular examination
CPT/HCPCS: 36415; 70450; 70553; 71045; 80053; 80061; 80307; 80320; 81001; 83605; 83690; 83735; 83880; 84100; 84145; 84443; 84484; 85025; 85610; 85730; 87040; 87077; 87086; 87186; 93005; 95816; 97163; A9579; G0378; J1650; J1953; J3475; A9270; G0480

== ENCOUNTER → 2025-06-22 | Outpatient (CLI) | payer MEDICARE, SELFPAY ==
[2025-06-22 09:16] LABS: Collection Type, Urine Clean Catch
[2025-06-22 09:54] LABS: Bacteria,Urine 1+; Bilirubin,Urine Negative (Negative); Blood,Urine Negative (Negative); Clarity,Urine Clear (Clear/Hazy); Color,Urine Lt-Yellow (Lt Yel-Yel); Culture Indicated,Urine Contaminated; Glucose, Urine Negative (Negative); Ketones,Urine Negative (Negative); Leukocyte Esterase,Urine Negative (Negative); Nitrite,Urine Negative (Negative); PH,Urine 6.5 (5.0-7.0); Protein,Urine Negative (Neg - Trace); RBC,Urine 1 /hpf (0-3); Specific Gravity,Urine 1.011 (1.001-1.035); Squamous Epithelial Cell,Urine 15 /hpf (0-5); Urobilinogen,Urine Negative mg/dL (0.0-1.0); WBC,Urine 1 /hpf (0-5)
[2025-06-22 10:06] LABS: Albumin, Serum 4.1 gm/dL (3.4-4.8); Anion Gap 10 (7-16); BUN/Creatinine Ratio 33 Ratio (12-20); Blood Urea Nitrogen 20 mg/dL (9-23); Calcium 9.8 mg/dL (8.3-10.6); Calcium (Corrected) 9.8 mg/dL (8.5-10.1); Carbon Dioxide 26.8 mMol/L (20.0-31.0); Chloride 97 mMol/L (98-107); Creatinine (Component) 0.6 mg/dL (0.6-1.3); Glucose 87 mg/dL (74-106); Magnesium 1.8 mg/dL (1.6-2.6); Osmolality,Calculated 269 (275-295); Phosphorous 3.1 mg/dL (2.4-5.1); Potassium 4.1 mMol/L (3.4-5.1); Sodium 134 mMol/L (136-145); eGFR > 60 See Note
== END | disposition home or self-care (01) ==
LOC: COPL 08:13
PROVIDERS: PCP Internal Medicine; Referring Provider Internal Medicine; Visit Provider Internal Medicine
DX: G40.802 Other epilepsy, not intractable, without status epilepticus (principal); I10 Essential (primary) hypertension; E87.1 Hypo-osmolality and hyponatremia
CPT/HCPCS: 36415; 80069; 81001; 83735

== ENCOUNTER → 2025-07-12 | Outpatient (CLI) | payer MEDICARE, SELFPAY ==
--- NOTE | 2025-07-12 | XR_ITS ---
Examination: Screening digital mammography, bilateral Computer aided detection 3-D breast Tomosynthesis, bilateral Date and time of exam: July 12, 2025 1317 hours, compared to mammograms dating to September 08, 2023 Indication: Screening Technique: Nonmagnified MLO, CC views of the breasts to been obtained, reconstructed from 3-D Tomosynthesis images. R2 computer aided detection program utilized for evaluation of suspicious masses and/or abnormal calcifications. 3-D Tomosynthesis images obtained. Findings: Scattered areas of fibroglandular density. Skin lesion upper left breast No interval suspicious masses Impression: BI-RADS category II: Benign Findings. Recommend 1 year follow-up mammogram.
--- NOTE | 2025-07-12 12:33 | XR_ITS ---
Examination: Breast ultrasound complete, bilateral Date and time of exam: July 12, 2025 1240 hours INDICATIONS: Annual screening examination Technique: Real-time grayscale ultrasonographic imaging bilateral breasts, including all 4 quadrants as well as nipple retroareolar and axillary regions. Findings: Sonographic images right and left breast demonstrated no cystic or solid masses IMPRESSION: BI-RADS Category 1: Negative studies
== END | disposition home or self-care (01) ==
PROVIDERS: PCP Internal Medicine; Referring Provider Internal Medicine; Visit Provider Internal Medicine
DX: Z12.31 Encounter for screening mammogram for malignant neoplasm of breast (principal); R92.323 Mammographic fibroglandular density, bilateral breasts
CPT/HCPCS: 76641; 77063; 77067